=== PATIENT | female | born 1930 | race Caucasian/White ===

== ENCOUNTER 2017-02-18 20:51 | Inpatient (IN) | payer OTHER ==
[2017-02-18] MEDS ORDERED: NS 1,000 ML IV ONE (21:11)
[2017-02-18 21:21] LABS: % IMMATURE GRANULYOCYTES 0.8 % (0.0-1.1); ABSOLUTE IMMATURE GRANULOCYTES 0.21 10^3/uL (0.00-0.10); ADD DIFF? NO; ADD MORPH? NO; ADD SCAN? NO; ATYPICAL LYMPHOCYTE FLAG 0 (0-99); FRAGMENT RBC FLAG 0 (0-99); HEMATOCRIT 41.7 % (38.0-47.0); HEMOGLOBIN 13.8 g/dL (12.6-16.3); LEFT SHIFT FLG 70 (0-99); LIPEMIA HEMOLYSIS FLAG 80 (0-99); MEAN CELL HEMOGLOBIN 26.9 pg (27.9-34.1); MEAN CELL HEMOGLOBIN CONCENTR. 33.1 g/dL (32.4-36.7); MEAN CELL VOLUME 81.3 fL (81.5-99.8); MEAN PLATELET VOLUME 11.8 fL (8.7-11.7); PLATELET CLUMPS FLAG 10 (0-99); PLATELET COUNT 251 10^3/uL (150-400); RED BLOOD CELL COUNT 5.13 10^6/uL (4.18-5.33); RED CELL DISTRIBUTION WIDTH 15.4 % (11.5-15.2)
[2017-02-18 21:40] LABS: ANION GAP 12 mEq/L (8-16); CALCIUM 10.3 mg/dL (8.5-10.4); CARBON DIOXIDE 25 mEq/l (22-31); CHLORIDE 98 mEq/L (97-110); CREATININE 0.8 mg/dL (0.6-1.0); GLOMERULAR FILTRATION RATE > 60; GLUCOSE 136 mg/dL (70-100); POTASSIUM 3.9 mEq/L (3.5-5.2); SODIUM 135 mEq/L (134-144)
[2017-02-18 22:02] LABS: COLOR YELLOW; LEUKOCYTE ESTERASE,URINE NEGATIVE (NEGATIVE); NITRITE,URINE NEGATIVE (NEGATIVE)
--- NOTE | 2017-02-18 22:05 | EDPHY ---
H & P Stated Complaint: AMS Time Seen by Provider: 02/18/17 21:14 HPI/ROS: CHIEF COMPLAINT: Fever and confusion HISTORY OF PRESENT ILLNESS: The patient is brought to the ED by paramedics with a reported history of fever in confusion. By report the patient was last seen in her normal state of health approximately 2 days ago. The patient is noted to have a low-grade fever. In the emergency department, the patient is unable to provide much history. By report she lives independently perhaps at [facility]. 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 She did not show up at work today which prompted a welfare check. In the ED the patient is arousable, she is able to state her name. She is unable to provide much history. REVIEW OF SYSTEMS: A comprehensive 10 point review of systems is unobtainable secondary to altered mental status Source: Patient Exam Limitations: Clinical condition - Medical/Surgical History PMH: Past medical history: Depression, asthma, obesity, PMR, glaucoma Medications: Prednisone, Qvar, venlafaxine, prednisolone, Ventolin Other PMH: unable to get - Social History Smoking Status: Unknown if ever smoked - Physical Exam Exam: General Appearance: Alert, confused, no acute distress, obese Eyes: Pupils equal and round no pallor or injection ENT, Mouth: Dry mucous membranes Respiratory: There are no retractions, lungs are clear to auscultation Cardiovascular: Regular rate and rhythm Gastrointestinal: Abdomen is soft and nontender, no masses, bowel sounds normal Neurological: Alert and oriented x1-name only, withdrawals to pain all 4 extremities, patient unable to sit up in bed on her own secondary to global weakness, no cranial nerve 7 palsy, no tongue deviation, sensation intact to light touch throughout face, unable to assess EOMI visual [place] Skin: Warm and dry, no rashes Musculoskeletal: Neck is supple nontender Extremities: symmetrical, full range of motion Constitutional: Initial Vital Signs Temperature (C) 37.9 C 02/18/17 21:15 Heart Rate 109 H 02/18/17 21:15 Respiratory Rate 24 H 02/18/17 21:15 Blood Pressure 176/76 H 02/18/17 21:15 O2 Sat (%) 95 02/18/17 21:15 O2 Delivery Mode Nasal Cannula O2 (L/minute) 2 Allergies/Adverse Reactions: Unable to Assess Allergy (Unverified 02/18/17 22:43) Home Medications: Medication Instructions Recorded Albuterol 02/18/17 Bisacodyl 02/18/17 Prednisolone 02/18/17 Venlafaxine HCl 02/18/17 Medical Decision Making - Diagnostics Imaging Results: Imaging Impressions Chest X-Ray 02/18/17 21:11 Impression: 1. Poor inspiration. 2. Mild peribronchial cuffing in the perihilar region. Findings are nonspecific but can be seen with bronchitis, viral process, or reactive airways disease. ED Course/Re-evaluation: The patient presents to the ED with altered mental status. The patient appears to be globally weak and confused. She is noted to have a low-grade fever. Patient has no hypoxemia. Her chest x-ray demonstrates no evidence of a pneumonia. The patient's urinalysis demonstrates no evidence of infection. The patient is noted to have an elevated white blood cell count. The patient was taken for noncontrast head CT scan in the setting of her altered mental status. I obtained old records from [facility] which demonstrate no significant comorbidities. The patient did have blood cultures x2 obtained. Patient will require admission to the hospital in a setting of her altered mental status. I do not feel the patient is safe to be transferred to [facility]. Consultation is made with Dr. Dior from the hospitalist service. The patient is unable to tolerate lumbar puncture secondary to her confusion and her body habitus makes it very difficult. I am unable to tolerate clear landmarks. The patient will be treated for bacterial meningitis and HSV encephalitis with ceftriaxone and vancomycin in addition to 10 milligrams/ kilogram of IV acyclovir. I estimate her body weight to be approximately 75 kg. The patient will be admitted to the intensive care unit for further evaluation this evening. Hopefully the patient can tolerate lumbar puncture under fluoroscopic guidance in the morning. Differential Diagnosis: Differential diagnosis considered includes urinary tract infection, pneumonia, viral syndrome, intracranial hemorrhage, stroke, , seizure, overdose Critical Care Time: Critical care time exclusive of procedures and exclusive of the PA's time was 45 minutes, performed by myself, Garry Moore MD. Patient presents to the ED with acute altered mental status. The patient will require admission to the hospital intensive care unit and treatment for possible encephalitis/meningitis. - Data Points Laboratory Results: Laboratory Results 02/18/17 21:00 02/18/17 21:00 02/18/17 02/18/17 02/18/17 21:50 21:10 21:00 WBC RBC Hgb Hct MCV MCH MCHC RDW Plt Count MPV Neut % (Auto) Lymph % (Auto) [place] % (Auto) Eos % (Auto) Baso % (Auto) Nucleat RBC Rel Count Absolute Neuts (auto) Absolute Lymphs (auto) Absolute Monos (auto) Absolute Eos (auto) Absolute Basos (auto) Absolute Nucleated RBC Immature Gran % Immature Gran # VBG Lactic Acid 1.3 mmol/L mmol/L (0.7-2.1) Sodium 135 mEq/L mEq/L (134-144) Potassium 3.9 mEq/L mEq/L (3.5-5.2) Chloride 98 mEq/L mEq/L (97-110) Carbon Dioxide 25 mEq/l mEq/l (22-31) Anion Gap 12 mEq/L mEq/L (8-16) BUN 22 mg/dL mg/dL (7-23) Creatinine 0.8 mg/dL mg/dL (0.6-1.0) Estimated GFR > 60 Glucose 136 mg/dL H mg/dL (70-100) Calcium 10.3 mg/dL mg/dL (8.5-10.4) Urine Color YELLOW Urine Appearance CLEAR Urine pH 6.0 (5.0-7.5) Ur Specific [place] 1.013 (1.002-1.030) Urine Protein 1+ H (NEGATIVE) Urine Ketones NEGATIVE (NEGATIVE) Urine Blood 1+ H (NEGATIVE) Urine Nitrate NEGATIVE (NEGATIVE) Urine Bilirubin NEGATIVE (NEGATIVE) Urine Urobilinogen NEGATIVE EU EU (0.2-1.0) Ur Leukocyte Esterase NEGATIVE (NEGATIVE) Urine RBC 3-5 /hpf H /hpf (0-3) Urine WBC 1-3 /hpf /hpf (0-3) Ur Epithelial Cells TRACE /lpf /lpf (NONE-1+) Urine Mucus TRACE /lpf /lpf (NONE-1+) Urine Glucose NEGATIVE (NEGATIVE) 02/18/17 21:00 WBC 25.23 10^3/uL H 10^3/uL (3.80-9.50) RBC 5.13 10^6/uL 10^6/uL (4.18-5.33) Hgb 13.8 g/dL g/dL (12.6-16.3) Hct 41.7 % % (38.0-47.0) MCV 81.3 fL L fL (81.5-99.8) MCH 26.9 pg L pg (27.9-34.1) MCHC 33.1 g/dL g/dL (32.4-36.7) RDW 15.4 % H % (11.5-15.2) Plt Count 251 10^3/uL 10^3/uL (150-400) MPV 11.8 fL H fL (8.7-11.7) Neut % (Auto) 93.1 % H % (39.3-74.2) Lymph % (Auto) 3.2 % L % (15.0-45.0) [place] % (Auto) 2.4 % L % (4.5-13.0) Eos % (Auto) 0.0 % L % (0.6-7.6) Baso % (Auto) 0.5 % % (0.3-1.7) Nucleat RBC Rel Count 0.0 % % (0.0-0.2) Absolute Neuts (auto) 23.47 10^3/uL H 10^3/uL (1.70-6.50) Absolute Lymphs (auto) 0.80 10^3/uL L 10^3/uL (1.00-3.00) Absolute Monos (auto) 0.61 10^3/uL 10^3/uL (0.30-0.80) Absolute Eos (auto) 0.01 10^3/uL L 10^3/uL (0.03-0.40) Absolute Basos (auto) 0.13 10^3/uL H 10^3/uL (0.02-0.10) Absolute Nucleated RBC 0.00 10^3/uL 10^3/uL (0-0.01) Immature Gran % 0.8 % % (0.0-1.1) Immature Gran # 0.21 10^3/uL H 10^3/uL (0.00-0.10) VBG Lactic Acid Sodium Potassium Chloride Carbon Dioxide Anion Gap BUN Creatinine Estimated GFR Glucose Calcium Urine Color Urine Appearance Urine pH Ur Specific [place] Urine Protein Urine Ketones Urine Blood Urine Nitrate Urine Bilirubin Urine Urobilinogen Ur Leukocyte Esterase Urine RBC Urine WBC Ur Epithelial Cells Urine Mucus Urine Glucose Medications Given: Discontinued Medications Sodium Chloride (Ns) 1,000 mls @ 0 mls/hr IV ONCE ONE PRN Reason: Wide Open Stop: 02/18/17 21:12 Last Admin: 02/18/17 21:23 Dose: 1,000 mls Departure - Departure Disposition: [facility] Inpatient Acute Clinical Impression: Encephalopathy acute Condition: Critical
[2017-02-18 22:06] LABS: MUCUS TRACE /lpf (NONE-1+)
[2017-02-18] MEDS ORDERED: ACETAMINOPHEN 120 MG SUPP PR ONE (22:50)
[2017-02-18] MEDS ORDERED: cefTRIAXone 2 GM in D5W 50 ML IV ONE (22:55)
[2017-02-18] MEDS ORDERED: VANCOMYCIN HCL/NORMAL SALINE 250 ML IV ONE (22:55)
[2017-02-18] MEDS ORDERED: ACYCLOVIR 750 MG in D5W 250 ML IV ONE (22:59)
[2017-02-18] MEDS ORDERED: ACETAMINOPHEN 650 MG SUPP PR ONE (23:02)
[2017-02-18] MEDS ORDERED: ONDANSETRON DISINTEGRATING 4 MG TAB PO PRN (23:11)
[2017-02-18] MEDS ORDERED: ONDANSETRON 4 MG/2 ML VIAL IVP PRN (23:11)
[2017-02-18] MEDS ORDERED: ACETAMINOPHEN 325 MG TAB PO PRN (23:11)
[2017-02-18 23:35] LABS: ALBUMIN 3.7 g/dL (3.5-5.0); BILIRUBIN,TOTAL 1.1 mg/dL (0.1-1.4); BILIRUBIN-CONJUGATED 0.5 mg/dL (0.0-0.5); BILIRUBIN-UNCONJUGATED 0.6 mg/dL (0.0-1.1); TOTAL PROTEIN 7.1 g/dL (6.3-8.2)
--- NOTE | 2017-02-18 23:56 | PDGENHP ---
History and Physical - Chief Complaint altered mental status - History of Present Illness Patient is an 87 year old female with polymyalgia rheumatica, mild asthma, GERD , obesity who live in independent living at [facility] was brought to the ED by EMS after being found confused/altered at home. History is limited by patient status, obtained from ED staff and medical record. 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 Given this, a wellness check was sent to her apartment, where she was found confused, so EMS was called and she was transported to the ED. Per report , she was last seen well about 2 days ago. On arrival to the ED, patient was febrile to Tmax 39.2C, tachycardic, mildly hypertensive, in no respiratory distress. She was oriented to person and nonfocal in all of her movements, but was unable to provide a history. Labs revealed leukocytosis (wbc 25k), normal lactic acid (1.2), normal BMP and negative UA. CXR also did not show obvious source of infection. CT head showed age appropriate atrophy, no acute abnormalities. LP could not be performed in the ED due to patient body habitus and altered mental status. She was pancultured and initiated on empiric broad spectrum antibiotics with meningeal coverage. History Information - Allergies/Home Medication List Allergies/Adverse Reactions: Unable to Assess Allergy (Unverified 02/18/17 22:43) Home Medications: Albuterol 02/18/17 [Last Taken Unknown] Bisacodyl 02/18/17 [Last Taken Unknown] Prednisolone 02/18/17 [Last Taken Unknown] Venlafaxine HCl 02/18/17 [Last Taken Unknown] I have personally reviewed and updated: family history, medical history, social history, surgical history - Past Medical History Additional medical history: polymyalgia rheumatica, on daily prednisone. mild persistent asthma. morbid obesity. glaucoma. depression - Surgical History Additional surgical history: corneal surgery. hysterectomy - Family History Positive for: non-pertinent - Social History Smoking Status: Former smoker (40 pack-year history) Alcohol Use: Other (unknown) Drug Use: None Additional social history: Lives alone in independent living facility Review of Systems ROS: 10pt was reviewed & negative except for what was stated in HPI & below Physical Exam Temp Pulse Resp BP Pulse Ox 39.2 C H 120 H 20 173/75 H 93 02/18/17 22:45 02/18/17 22:45 02/18/17 22:45 02/18/17 22:45 02/18/17 22:45 Constitutional: appears nourished, not in pain, obese Eyes: PERRL, anicteric sclera, EOMI Ears, Nose, Mouth, Throat: moist mucous membranes, hearing normal, no oral mucosal ulcers Cardiovascular: regular rate and rhythym, no murmur, rub, or gallop, pulses symmetric bilaterally, tachycardia, No JVD, No edema Peripheral Pulses: 2+: dorsalis-pedis (R), dorsalis-pedis (L) Respiratory: no respiratory distress, no rales or rhonchi, clear to auscultation Gastrointestinal: normoactive bowel sounds, soft, non-tender abdomen, no palpable masses, No guarding, No rebound, No distension Genitourinary: no bladder fullness, no bladder tenderness Skin: mottled, no rashes or abrasions, no fluctuance, no induration Musculoskeletal: full muscle strength, no muscle tenderness, normal joint ROM, no joint effusions Neurologic: other (oriented to person only, able to follow simple commands; cn II-XII grossly intact; strength of all extremities intact and eqaul) Psychiatric: encephalopathic Lab Data & Imaging Review 02/19/17 05:10 02/19/17 05:10 WBC 25.23 10^3/uL (3.80-9.50) H 02/18/17 21:00 RBC 5.13 10^6/uL (4.18-5.33) 02/18/17 21:00 Hgb 13.8 g/dL (12.6-16.3) 02/18/17 21:00 Hct 41.7 % (38.0-47.0) 02/18/17 21:00 MCV 81.3 fL (81.5-99.8) L 02/18/17 21:00 MCH 26.9 pg (27.9-34.1) L 02/18/17 21:00 MCHC 33.1 g/dL (32.4-36.7) 02/18/17 21:00 RDW 15.4 % (11.5-15.2) H 02/18/17 21:00 Plt Count 251 10^3/uL (150-400) 02/18/17 21:00 MPV 11.8 fL (8.7-11.7) H 02/18/17 21:00 Neut % (Auto) 93.1 % (39.3-74.2) H 02/18/17 21:00 Lymph % (Auto) 3.2 % (15.0-45.0) L 02/18/17 21:00 [place] % (Auto) 2.4 % (4.5-13.0) L 02/18/17 21:00 Eos % (Auto) 0.0 % (0.6-7.6) L 02/18/17 21:00 Baso % (Auto) 0.5 % (0.3-1.7) 02/18/17 21:00 Nucleat RBC Rel Count 0.0 % (0.0-0.2) 02/18/17 21:00 Absolute Neuts (auto) 23.47 10^3/uL (1.70-6.50) H 02/18/17 21:00 Absolute Lymphs (auto) 0.80 10^3/uL (1.00-3.00) L 02/18/17 21:00 Absolute Monos (auto) 0.61 10^3/uL (0.30-0.80) 02/18/17 21:00 Absolute Eos (auto) 0.01 10^3/uL (0.03-0.40) L 02/18/17 21:00 Absolute Basos (auto) 0.13 10^3/uL (0.02-0.10) H 02/18/17 21:00 Absolute Nucleated RBC 0.00 10^3/uL (0-0.01) 02/18/17 21:00 Immature Gran % 0.8 % (0.0-1.1) 02/18/17 21:00 Immature Gran # 0.21 10^3/uL (0.00-0.10) H 02/18/17 21:00 VBG Lactic Acid 1.3 mmol/L (0.7-2.1) 02/18/17 21:10 Sodium 135 mEq/L (134-144) 02/18/17 21:00 Potassium 3.9 mEq/L (3.5-5.2) 02/18/17 21:00 Chloride 98 mEq/L (97-110) 02/18/17 21:00 Carbon Dioxide 25 mEq/l (22-31) 02/18/17 21:00 Anion Gap 12 mEq/L (8-16) 02/18/17 21:00 BUN 22 mg/dL (7-23) 02/18/17 21:00 Creatinine 0.8 mg/dL (0.6-1.0) 02/18/17 21:00 Estimated GFR > 60 02/18/17 21:00 Glucose 136 mg/dL (70-100) H 02/18/17 21:00 Calcium 10.3 mg/dL (8.5-10.4) 02/18/17 21:00 Total Bilirubin 1.1 mg/dL (0.1-1.4) 02/18/17 21:00 Conjugated Bilirubin 0.5 mg/dL (0.0-0.5) 02/18/17 21:00 Unconjugated Bilirubin 0.6 mg/dL (0.0-1.1) 02/18/17 21:00 AST 24 IU/L (14-46) 02/18/17 21:00 ALT 26 IU/L (9-52) 02/18/17 21:00 Alkaline Phosphatase 91 IU/L (38-126) 02/18/17 21:00 Total Protein 7.1 g/dL (6.3-8.2) 02/18/17 21:00 Albumin 3.7 g/dL (3.5-5.0) 02/18/17 21:00 Lipase 46.0 IU/L (23-300) 02/18/17 21:00 Urine Color YELLOW 02/18/17 21:50 Urine Appearance CLEAR 02/18/17 21:50 Urine pH 6.0 (5.0-7.5) 02/18/17 21:50 Ur Specific [place] 1.013 (1.002-1.030) 02/18/17 21:50 Urine Protein 1+ (NEGATIVE) H 02/18/17 21:50 Urine Ketones NEGATIVE (NEGATIVE) 02/18/17 21:50 Urine Blood 1+ (NEGATIVE) H 02/18/17 21:50 Urine Nitrate NEGATIVE (NEGATIVE) 02/18/17 21:50 Urine Bilirubin NEGATIVE (NEGATIVE) 02/18/17 21:50 Urine Urobilinogen NEGATIVE EU (0.2-1.0) 02/18/17 21:50 Ur Leukocyte Esterase NEGATIVE (NEGATIVE) 02/18/17 21:50 Urine RBC 3-5 /hpf (0-3) H 02/18/17 21:50 Urine WBC 1-3 /hpf (0-3) 02/18/17 21:50 Ur Epithelial Cells TRACE /lpf (NONE-1+) 02/18/17 21:50 Urine Mucus TRACE /lpf (NONE-1+) 02/18/17 21:50 Urine Glucose NEGATIVE (NEGATIVE) 02/18/17 21:50 Visualized and Interpreted Chest x-ray results: Yes Chest X-Ray results: no infiltrate Visualized and Interpreted imaging results: Yes Interpretation: CT head: age appropriate atrophy; no acute edema, hemorrhage or infarct seen Assessment & Plan Assessment: Patient is an 87 year old female with PMR on chronic steroids, depression, asthma, obesity who was brought to the ED with acute encephalopathy. ED work up is concerning for severe sepsis, however, source of infection is yet to be identified. Plan: # acute encephalopathy Patient is nonfocal in her symptoms, is oriented to person and able to follow some simple commands. However, is encephalopathic, which appears consistent with a metabolic encephalopathy. Given fever, leukocytosis and tachycardia, and normal electrolytes, suspect an infection etiology, although source is not obvious at this time. Will continue to monitor neuro status, if no improvement in encephalopathy with antibiotics or if patient develops focal findings, will check MRI and obtain neuro consult. # suspected sepsis As mentioned above, patient is febrile, tachycardic and with a significant leukocytosis, concerning for severe sepsis given her altered mental status, however, no clear source of infection is identified. No obvious rash or skin breakdown, abdomen is soft/nontender and CXR, rapid Flu swab, urinalysis and LFTs are all within normal limits. Given fever and altered mental status, acute encephalitis is also a possibility. She has been galvan-cultured and initiated on empiric broad spectrum antibiotics and anti-viral coverage in the ED. Will consult IR for lumbar puncture assistance, consult ID and follow up cultures. - f/u blood, urine cultures, - f/u Lumbar puncture - cont Vancomycin, ceftriaxone and acyclovir empirically - cont IVF hydration with NS @ 125 cc/hr given IV acyclovir # polymyalgia rheumatica Per her living facility documentation, patient has history of PMR, on chronic low dose prednisone daily. BP is stable, she does not appear to be adrenally suppressed at this time, however, if hemodynamics change, will initiate stress dose steroids. Will confirm and continue other home meds as well. # asthma No wheezing on exam, patient not tachypneic or hypoxic on presentation. Will provide nebs and supplemental O2 prn. #glaucoma Cont home meds/drops # dispo: admit to inpatient service for > 2 MN stay as patient requires further investigation of acute encephalopathy # gen: NPO given mental status DVT ppx: lovenox Full code
--- NOTE | 2017-02-19 00:35 | CPEKG ---
Heart Rate: 121 RR Interval: 496 QRSD Interval: 80 QT Interval: 312 QTC Interval: 443 QRS Schuyler: -4 T Wave Schuyler: 100 EKG Severity - ABNORMAL ECG - EKG Impression: Sinus rhythm with PAC EKG Impression: NONSPECIFIC REPOL ABNORMALITY, DIFFUSE LEADS Electronically Signed By: Israel Wallace 20-Feb-2017 11:55:46
[2017-02-19] MEDS: NS 1,000 ML IV SCH ×2 (01:24→20:54)
[2017-02-19 05:40] LABS: % IMMATURE GRANULYOCYTES 0.9 % (0.0-1.1); ABSOLUTE IMMATURE GRANULOCYTES 0.16 10^3/uL (0.00-0.10); ADD DIFF? NO; ADD MORPH? NO; ADD SCAN? NO; ATYPICAL LYMPHOCYTE FLAG 0 (0-99); FRAGMENT RBC FLAG 0 (0-99); HEMATOCRIT 38.9 % (38.0-47.0); HEMOGLOBIN 12.7 g/dL (12.6-16.3); LEFT SHIFT FLG 30 (0-99); LIPEMIA HEMOLYSIS FLAG 80 (0-99); MEAN CELL HEMOGLOBIN CONCENTR. 32.6 g/dL (32.4-36.7); MEAN CELL VOLUME 82.8 fL (81.5-99.8); PLATELET CLUMPS FLAG 0 (0-99); PLATELET COUNT 204 10^3/uL (150-400); RED CELL DISTRIBUTION WIDTH 15.3 % (11.5-15.2)
[2017-02-19 05:48] LABS: INR 1.47 (0.83-1.16); PROTIME(PATIENT) 17.8 SEC (12.0-15.0)
[2017-02-19 05:49] LABS: APTT 30.4 SEC (23.0-38.0)
[2017-02-19 05:57] LABS: ALANINE AMINOTRANSFERASE 30 IU/L (9-52); ALBUMIN 3.5 g/dL (3.5-5.0); ALKALINE PHOSPHATASE 88 IU/L (38-126); ANION GAP 11 mEq/L (8-16); ASPARTATE AMINOTRANSFERASE 23 IU/L (14-46); BILIRUBIN,TOTAL 0.8 mg/dL (0.1-1.4); CALCIUM 9.5 mg/dL (8.5-10.4); CARBON DIOXIDE 23 mEq/l (22-31); CHLORIDE 103 mEq/L (97-110); CREATININE 0.7 mg/dL (0.6-1.0); GLOMERULAR FILTRATION RATE > 60; GLUCOSE 130 mg/dL (70-100); MAGNESIUM 1.5 mg/dL (1.6-2.3); POTASSIUM 3.5 mEq/L (3.5-5.2); SODIUM 137 mEq/L (134-144); TOTAL PROTEIN 6.5 g/dL (6.3-8.2)
[2017-02-19] MEDS ORDERED: ACYCLOVIR 750 MG in D5W 250 ML IV SCH (06:00)
[2017-02-19] MEDS ORDERED: PROTOCOL MAGNESIUM 1 DOSE IV PRN (06:55)
[2017-02-19] MEDS ORDERED: MAGNESIUM SULF 1 GM/DEXTROSE 100 ML IV ONE (07:37)
[2017-02-19] MEDS: ENOXAPARIN 40 MG/0.4 ML SYR SC SCH (08:07)
[2017-02-19] MEDS ORDERED: cefTRIAXone 2 GM in D5W 50 ML IV SCH (09:00)
[2017-02-19] MEDS: VANCOMYCIN 1.25 GM in D5W 250 ML IV SCH ×2 (11:21→22:38)
[2017-02-19] MEDS ORDERED: IOPAMIDOL (ISOVUE-300) 100 ML BTL IV ONE (11:24)
--- NOTE | 2017-02-19 13:40 | GCON ---
[f rep st] CONSULTATION INFECTIOUS DISEASE CONSULTATION DATE OF CONSULTATION: 02/19/2017 REFERRING PHYSICIAN: Мария Dior MD REASON FOR CONSULTATION: Altered mental status. CHIEF COMPLAINT: Fevers and shaking chills. HISTORY OF PRESENTING ILLNESS: This is an 87-year-old female with a past medical history significant for polymyalgia rheumatica, obesity, NAVNEET on CPAP, depression on Effexor, asthma, who tells me she lives independently at the [facility]. She states that she was having fevers and shaking chills over the weekend and was feeling extremely tired and slept most of the weekend. Because of that, she missed showing up to some scheduled appointments that she had that day. Apparently people had come in to check in on her and because she was confused they had her sent to the ER. She states that she occasionally gets these types of symptoms where she gets fevers and shaking chills and extreme exhaustion. Upon review of medical records via [employer], she apparently was admitted to [facility] in November of this year with similar symptoms of fevers, chills, weakness, tiredness. She had a slight leukocytosis at that time. She was felt to have a viral syndrome. Other than that, she states that she has had some issues with diarrhea recently and some left lower abdominal pain. She states that she had a colonoscopy recently and has had some polyps present. She cannot give me other details about some type of workup but it looks to me that she had a CAT scan. She denies feeling more short of breath or having excessive productive cough. She denies sinus pressure, denies headaches or neck stiffness or neck pain. She can tell me her name, her date of , what year it is, the president, where she lives and what she normally does during her daily routines. She denies any vomiting or nausea. She denies any burning with urination. She denies joint pains as such. She did fall recently and did sustain a bruise on her right lower extremity which gives her some mild discomfort. She denies back pain. Upon arrival, her initial temperature here was 37.9 but she did spike to 39.2. Her blood pressure was 176/76. Her respiratory rate was elevated at 24, and her heart rate has been elevated throughout. She was found to have a leukocytosis of 25,000 with a left shift. Her venous lactic acid was 1.3. Normal TSH, renal function and liver function tests. Her urinalysis was unremarkable, only 1-3 white blood cells. She did have some blood in the urine. Negative workup for flu. Blood cultures x2 sets were done, and they are pending. She had a chest x- ray, which showed some mild peribronchial thickening. Head CT, which showed age- related atrophy with no hemorrhage, mass effect, or infarct. She was started empirically on ceftriaxone, vancomycin, and acyclovir. An LP could not be done in the ER, and therefore she was broadly covered for possible meningitis, encephalitis. Infectious Disease is now consulted for further evaluation and opinion. She is much more oriented this morning. She is continuing to have some word- finding difficulties. She denies headache, denies neck stiffness or pain. REVIEW OF SYSTEMS: GENERAL: Fevers and shaking chills past couple of days. HEAD : No headaches. EYES: Does not complain of any change in vision. ENT: Denies any sore throat, difficulty swallowing, ear pain, ear drainage, sinus pressure. Occasional nasal discharge. CARDIOVASCULAR: Denies chest pain but is complaining of some palpitations at present. RESPIRATORY: A mild chronic cough. No increased shortness of breath or sputum production. ABDOMEN: No nausea or vomiting. She does complain of intermittent diarrhea and is having some left lower quadrant discomfort. : Denies any dysuria, hematuria. BACK: No back pain. JOINTS: No increased joint pains. SKIN: Denies any rashes or wounds but does have a moderate sized bruise on her right lower extremity which is mildly discomforting to her. Rest of 10-point review of systems essentially negative except for above. PAST MEDICAL HISTORY: Significant for polymyalgia rheumatica diagnosed 1-2 years ago. She is on chronic prednisone. Follows with a wood die maker. There was some question of whether or not this is a true diagnosis or not for her but in the very least, she is still on prednisone for this. Asthma, GERD, obesity, NAVNEET on CPAP, depression, hypertension, endometrial cancer. PAST SURGICAL HISTORY: Significant for bilateral corneal transplants, bilateral cataract surgery, total abdominal hysterectomy with bilateral salpingo -oophorectomy, tonsillectomy and adenoidectomy, bunionectomy, keratoplasty. ALLERGIES: No known drug allergies. SOCIAL HISTORY: She lives independently. She is a nonsmoker. She does not drink alcohol regularly. She has had no contact with young children. She has not left [place] recently. 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 FAMILY HISTORY: Significant for hypertension. MEDICATIONS: As per MAR. PHYSICAL EXAMINATION: VITAL SIGNS: Temperature current 37.7, pulse is 105, appears irregular. Blood pressure 110/64, respiratory rate 25, saturation 96% on room air. On 2 L O2 via nasal cannula. GENERAL: She is in the intensive care unit awake, alert, and fairly well oriented. She does have some word-finding difficulties. NEURO: Cranial nerves 2-12 grossly intact. Motor strength is pretty intact as well, 5/5. No sensory loss appreciated. Other than the word- finding difficulties, no other focal deficits appreciated. HEENT: Head is normocephalic and atraumatic. Eyes: She has some cataract changes on the left particularly. No conjunctival injection. No petechiae noted. Oropharynx is without oral ulcers or thrush. Dry mucous membranes appreciated. Lips are peeling. No pressure over the sinuses. No pressure or pain over the temporal artery bilaterally. NECK: Supple. No meningismus appreciated. CARDIOVASCULAR: S1 , S2. Irregular rate and rhythm with a murmur appreciated. RESPIRATORY: Clear to auscultation bilaterally. No rhonchi or rales appreciated. ABDOMEN: Positive bowel sounds in all 4 quadrants. Soft, obese. She has tenderness on the left lower quadrant. She has some mild rebound appreciated. EXTREMITIES: No obvious joint effusions appreciated. SKIN: Venostasis changes bilaterally. She has a bruise particularly on the right upper leg without much tenderness. There is no evidence of cellulitis. BACK: Nontender to palpate. LABS: White blood cell count is 18.6, hemoglobin 12.7, platelets are 204, neutrophil count is 92. INR 1.4. Venous lactic acid is down to 1.1. Sodium 137, potassium 3.5, chloride 103, bicarb 23, BUN is 16, creatinine 0.7, glucose 130. Magnesium 1.5. Phosphorus 2.6. Calcium 9.5. LFTs are within the normal range. TSH 0.7. Urinalysis: 1+ protein, 1+ blood, negative nitrites, negative leukocyte esterase with rbc's 3-5, urine wbc's 1-3. Influenza A and B PCR negative. Blood cultures x2 sets are pending. Urine culture pending. Imaging results have all been reviewed by me and are stated above. ASSESSMENT: Systemic inflammatory response syndrome of unclear etiology associated with fevers, altered mental status, leukocytosis. PLAN: She appears mostly oriented at present but does continue to have intermittent word-finding difficulties. She does also have an irregular rate and rhythm with a murmur appreciated. Cultures have been collected and those are pending. She has no meningismus, neck is supple and does not clinically appear consistent with meningitis or encephalitis at this point in time. Even though she was given a dose of acyclovir would not expect such a rapid recovery after 1 or 2 doses. Would recommend an MRI of the brain with gado to further evaluate for possible stroke along with a 2D echo for possible vegetation. Would also consider a CT of the abdomen and pelvis given recent history of diarrhea and left lower quadrant pain to further evaluate potential source for infection. We will adjust her antimicrobial therapy in the meantime. Will discontinue acyclovir. I don't feel she needs a lumbar puncture. Will change ceftriaxone to zosyn for better intraabdominal coverage while cultures are pending and until Cat-scan resulted. Continue Vancomycin. Will adjust antibiotics accordingly based on additional information gleaned from the above studies. Care coordinated with her RN and thank you very much for the opportunity to care for your patient in consultation. /[id number]/MODL MTDD
[2017-02-19] MEDS ORDERED: GADOBUTROL 10 ML VIAL IVP ONE (14:25)
--- NOTE | 2017-02-19 14:38 | ECHO ---
[id number] + + [address] : : [place] [address] : : [phone] + + Adult Echocardiographic Report + + :Name: HESHAM SANDOVAL CStudy Date: 02/19/2017 10:20 AM BP: 110/84 m mHg : : Hospital Admission Number: [id number] tilucio: 253HR: 110: :: 1930 Gender: Female Height: 61 i n : :Age: 87 yrs Race: WH Weight: 208 lb : :Reason For Study: eval for vegetations : : BSA: 1.9 met ers2 : :History: bacteremic, IRR, murmur : + + MMode/2D Measurements \T\ Calculations IVSd: 1.3 cm RVDd: 2.6 cm FS: 44.0 % Ao root diam: LVPWd: 1.2 cm LVIDd: 4.6 cm EDV(Teich): 95.5 ml2.8 cm LVIDs: 2.6 cm ESV(Teich): 23.6 mlLA dimension: EF(Teich): 75.3 % 4.1 cm LVOT diam: 2.0 cmLVLd ap4: 7.8 cm SV(MOD-sp4): LVOT area: EDV(MOD-sp4): 87.0 ml 3.0 cm2 111.0 ml LVLs ap4: 6.3 cm ESV(MOD-sp4): 24.0 ml EF(MOD-sp4): 78.4 % Normal Measurement Values: + + :LVIDd (3.5-5.7cm) IVSd (0.6-1.1cm) LVPWd (0.6-1.1cm) Aortic Root (2.0-3.7cm)Left Atrium (1.5-4.0cm): :LV Vol(d) (76-115ml) LV Vol(s) (29-48ml) Ejec Fraction (50-65%)PV Timi (0.6- 1.2m/s) TV Timi (0.4-1.0m/s) : :MV E Timi (0.8-1.0m/s)MV A Timi (0.3-1.0m/s)LVOT Timi (0.7-1.2m/s) Asc Ao Timi ( 0.9-1.8m/s) : + + Doppler Measurements \T\ Calculations MV V2 mean: MV P1/2t max timi: Ao mean PG: AI max timi: 131.3 cm/sec 199.1 cm/sec 13.7 mmHg 361.7 cm/sec MV mean PG: MV P1/2t: 76.3 msec Ao V2 mean: AI max P.7 mmHg MVA(P1/2t): 2.9 cm2 175.1 cm/sec 52.7 mmHg MV V2 VTI: MV dec slope: Ao V2 VTI: AI dec slope: 48.6 cm 38.1 cm 333.0 cm/sec2 MVA(VTI): 1.4 cm2 764.5 cm/sec2 BERNARDINO(I,D): 1.7 cm2AI P1/2t: 318.2 msec LV V1 max: SV(LVOT): 65.7 ml PA V2 max: 121.4 cm/sec 124.9 cm/sec LV V1 max PG: PA max P.9 mmHg 6.2 mmHg LV V1 mean P.3 mmHg LV V1 mean: 84.9 cm/sec LV V1 VTI: 21.8 cm Left Ventricle The left ventricle is normal in size. There is mild to moderate concentric left ventricular hypertrophy. The left ventricle is hyperdynamic. Ejection Fraction = 75%. No regional wall motion abnormalities noted. Right Ventricle The right ventricle is normal in size and function. Atria The left atrium is mildly dilated. The Left Atrial Volume is 32 ml/m2. Right atrial size is normal. Mitral Valve Heavy mitral annular calcification with thickened leaflets. The posterior leaflet appears immobile. Possible mobile echo noted on the mitral valve leaflet in the apical two chmaber view; however it is difficult to determine if this is vegetation or reverberation from the annular calcification. A vegetation on the mitral valve cannot be excluded. There is mild to moderate mitral stenosis. Mean gradient across the valve 8mmHg. There is mild mitral regurgitation. Tricuspid Valve The tricuspid valve is not well visualized. There is no tricuspid stenosis. No tricuspid regurgitation. Aortic Valve The aortic valve is trileaflet. Aortic leaflets are mildly calcified making it difficult to rule out vegetation. Mild valvular aortic stenosis. 25/15 max/mean pressure gradients across the aortic valve. Mild aortic regurgitation. Pulmonic Valve The pulmonic valve is not well visualized. Great Vessels The aortic root is normal size. Pericardium/Pleural There is no pericardial effusion. Conclusion A two-dimensional transthoracic echocardiogram with M-mode and Doppler was performed. There is no evidence of a mass or vegetation. This does not rule out endocarditis. The left ventricle is hyperdynamic. Ejection Fraction = 75%. There is mild to moderate concentric left ventricular hypertrophy. The left atrium is mildly dilated. The Left Atrial Volume is 32 ml/m2. Heavy mitral annular calcification with thickened leaflets. The posterior leaflet appears immobile. There is mild to moderate mitral stenosis. Mean gradient across the valve 8mmHg. There is mild mitral regurgitation. A vegetation on the mitral valve cannot be excluded. Aortic leaflets are mildly calcified making it difficult to rule out vegetation. Mild valvular aortic stenosis. 25/15 max/mean pressure gradients across the aortic valve. Mild aortic regurgitation. No surgical indications are identified by this study. JONATHAN if clinically relevant Final Reading Physician: Shiela Marquez signed on 02/19/2017 02:37 PM Ordering Physician: Dimas Adan Performed By: Elizabeth Fernández
[2017-02-19] MEDS: PIPERACILLIN/TAZO 3.375 GM/DEX 50 ML IV SCH ×2 (15:46→18:24)
--- NOTE | 2017-02-19 16:28 | HOSPPROG ---
Hospitalist Progress Note Assessment/Plan: 87 yo F with PMH of PMR, RAD, GERD pw acute encephalopathy in the setting of presumed sepsis # acute encephalopathy: non focal neuro exam, head CT negative. All in all most c/w toxic metabolic encephalopathy related to infection and initial blood cultures now positive for gpcs. Improving overnight. Brain MRI ordered given ongoing word finding difficulty. LP ordered but difficult given body habitus and confusion and may not be required if MRI reassuring and sxs continue to improve # sepsis: with leukocytosis, tachycardia, tachypnea but no clear source of infection. Started initially on tx for presumed meningitis with vanc/ctx/ acyclovir. Cultures growing gpc's initially in 3/4 bottles with final s/s pending. ID involved, abx changed to vanc/zosyn. Abd ct and echo ordered. # bacteremia: GPC's in 3/4 bottles with final s/s pending, abx as above. Echo with abnormal mitral valve, cannot r/o vegetation. Abd ct pending. Will get repeat cultures in am, continue to monitor. Source unclear. # VHD: with preserved EF but mitral valve calcification and mild to moderate MS , cannot exclude vegetation as above. Consider JONATHAN pending culture data. # PMR: on chronic steroids prior to admission, has been npo and no signs of adrenal insufficiency , but will start IV steroids for now and resume her home dose when taking PO given acute infection and desire to avoid adrenal crisis # RAD: no e/o acute exacerbation, continue usual inhalers # Dispo: IP status, multiple high risk presenting issues, resides in [facility] independent living Patient new to my care. Old records reviewed and summarized as above. Care plan reviewed with Dr. Tovar and multidisciplinary care team on rounds. Subjective: no significant overnight events, patient more awake and alert, no new complaints Objective: Vital Signs Temp Pulse Resp BP Pulse Ox 37.4 C 106 H 21 H 141/61 H 98 02/19/17 16:00 02/19/17 16:00 02/19/17 16:00 02/19/17 16:00 02/19/17 16:00 Laboratory Results 02/19/17 05:10 02/19/17 05:10 02/18/17 02/19/17 02/20/17 05:59 05:59 05:59 Intake Total 2584 Output Total 475 Balance 2109 PT 17.8 SEC (12.0-15.0) H 02/19/17 05:10 INR 1.47 (0.83-1.16) H 02/19/17 05:10 awake alert anicteric op clear rrr systolic murmur slight ttp diffusely w/o rebound or guarding no cce warm dry well perfused oriented - Time Spent With Patient Time Spent with Patient: greater than 35 minutes Time Spent with Patient: Greater than 35 minutes spent on this patients care, greater than 50% of time spent counseling, educating, and coordinating care regarding the above mentioned plan. ICD10 Worksheet Patient Problems: Problems Problem Status Onset Encephalopathy acute Acute
[2017-02-19] MEDS ORDERED: ALBUTEROL 200 PUFFS/18 GM MDI IH PRN (16:31)
[2017-02-19] MEDS: BECLOMETHASONE QVAR 80 MDI IH SCH (21:03)
[2017-02-19] MEDS: methylPREDNISolone SOD SUCC 40 MG/ML VIAL IVP SCH (21:41)
[2017-02-19] MEDS: prednisoLONE ACET 1% 5 ML OPHT.BTL LEFTEYE SCH (21:41)
--- NOTE | 2017-02-20 00:17 | GCON ---
[f rep st] CONSULTATION CRITICAL CARE CONSULTATION REASON FOR CONSULTATION: Abnormal mental status, bacteremia. HISTORY: The patient is a pleasant and active 87-year-old. She was admitted yesterday with abnormal mental status. She was found to be confused by some friends, and was taken to the emergency room. She reported some fevers and shaking chills, and profound fatigue. She was nonfocal from a mental status standpoint, but was having some problems finding words, and was somewhat more short of breath. She was febrile after admission to over 39. She is mildly tachypneic and tachycardic. White blood cell count was significantly elevated at approximately 25,000, with a shift to the left. Blood cultures were done, and have come back positive for gram-positive cocci. CT scan of the head was unremarkable. Cardiac echo has been done, and shows some calcification of the mitral valve, and a vegetation on the mitral valve was felt to be possible. There is some mild calcification of the aortic valve, as well, with mild stenosis of both valves. Left ventricular ejection fraction was normal. She has been seen by Infectious Disease. She is being treated with vancomycin and Zosyn. She is also on steroids for polymyalgia rheumatica. PAST MEDICAL HISTORY: Remarkable for PMR, she is on chronic low-dose steroids, asthma, obstructive sleep apnea, for which she uses CPAP, gastroesophageal reflux disease, systemic hypertension, and endometrial cancer. 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 Tobacco and significant alcohol are negative. ALLERGIES: No known drug allergies. FAMILY HISTORY: Noncontributory. REVIEW OF SYSTEMS: A 10-point review of systems is negative, except as outlined above. PHYSICAL EXAMINATION: GENERAL: Reveals a pleasant woman who is lying comfortably in bed. She does appear to be fatigued. VITAL SIGNS: Blood pressure is 140/60, heart rate 105, with sinus rhythm on the monitor with ectopy. On 3 L, saturations are 98%. She has been afebrile since shortly after her admission, and her maximum temperature is 39. HEENT AND NECK: Unremarkable for lymphadenopathy or thyromegaly. There is no obvious jugular venous distention. Pupils appear equal. Mucous membranes are moist. There are no cranial nerve findings. CHEST: Clear, with breath sounds decreased at bases. HEART: Tachycardic. The rhythm is sinus, with some ectopy. A systolic murmur is present. No gallop is appreciated. P2 appears normal. ABDOMEN: Overweight, soft nontender. Bowel sounds present. EXTREMITIES: Remarkable for trace plus edema. NEUROLOGIC: Nonfocal. She moves all extremities equally. Sensation reportedly is intact. Cognition is within normal limits. She is oriented x3; however, occasionally, she has problems finding words. She will try to correct herself when this happens. LABORATORY DATA: Echo is as outlined above, with an abnormal calcified mitral valve and possible vegetation. Abdominal CAT scan shows some diverticulitis in the sigmoid colon. There is also a 2.5 mass in the left upper kidney suspicious for renal cell carcinoma. No other significant abnormalities were identified. The base of the lungs looked normal. CT scan of the head unremarkable for acute disease. Laboratory shows a white blood cell count of 18,000, down from 25,000 on admission, hematocrit is 39, platelets 204,000. There is a shift to the left. PT is 17.8, PTT 30. Lactates have been normal. Basic metabolic panel is normal , with the exception of the following: Potassium is 3.5, glucose 130, magnesium 1.5. Liver function studies are normal. TSH is normal. Urinalysis on admission was within normal limits. Influenza A/B by PCR were negative. ASSESSMENT: 1. Abnormal mental status. This is associated with fatigue, tiredness, and word-finding problems. There is no focality, and CT scan of the head was negative. A follow-up MRI of the brain is pending at this time. This likely, least in part, represents a toxic metabolic encephalopathy secondary to bacteremia/sepsis, but a small stroke remains possible. 2. Bacteremia/sepsis. She has gram-positive cocci in her blood. There is a questionable mitral valve lesion, thus this could be endocarditis. A JONATHAN is being considered. Also, abdominal CT scan shows evidence of sigmoid diverticulitis, with an inflamed diverticulum. A GI source is thus possible as well. She is on Gram-positive and Gram-negative coverage for both. Infectious Disease is following. 3. Left-sided renal mass. Query renal cell carcinoma. This can be addressed later in her hospital course or followed up as an outpatient. 4. History of underlying medical problems, including polymyalgia rheumatica, and chronic steroid treatment. She is being covered with stress doses of steroids. However, these can likely be decreased, as she is not hypotensive. PLAN: The patient will be kept in the intensive care unit. A JONATHAN will be performed. Cardiac consultation will be needed. Current antibiotics will be continued. MRI results of the awaited. Further plans and recommendations will be made based on her progress over the next 12-24 hours, and on the findings of additional studies. NAKUL
[2017-02-20] MEDS: PIPERACILLIN/TAZO 3.375 GM/DEX 50 ML IV SCH ×4 (00:20→17:46)
[2017-02-20] MEDS: methylPREDNISolone SOD SUCC 40 MG/ML VIAL IVP SCH ×2 (06:12→13:28)
[2017-02-20] MEDS: prednisoLONE ACET 1% 5 ML OPHT.BTL LEFTEYE SCH ×5 (06:12→21:04)
[2017-02-20 07:15] LABS: % IMMATURE GRANULYOCYTES 0.6 % (0.0-1.1); ABSOLUTE IMMATURE GRANULOCYTES 0.04 10^3/uL (0.00-0.10); ADD DIFF? NO; ADD MORPH? NO; ADD SCAN? YES; ATYPICAL LYMPHOCYTE FLAG 0 (0-99); FRAGMENT RBC FLAG 0 (0-99); HEMATOCRIT 40.9 % (38.0-47.0); HEMOGLOBIN 13.3 g/dL (12.6-16.3); LEFT SHIFT FLG 40 (0-99); LIPEMIA HEMOLYSIS FLAG 80 (0-99); MEAN CELL HEMOGLOBIN 26.8 pg (27.9-34.1); MEAN CELL HEMOGLOBIN CONCENTR. 32.5 g/dL (32.4-36.7); MEAN CELL VOLUME 82.3 fL (81.5-99.8); MEAN PLATELET VOLUME 12.3 fL (8.7-11.7); PLATELET CLUMPS FLAG 0 (0-99); PLATELET COUNT 186 10^3/uL (150-400); RED BLOOD CELL COUNT 4.97 10^6/uL (4.18-5.33); RED CELL DISTRIBUTION WIDTH 15.6 % (11.5-15.2)
[2017-02-20 07:24] LABS: ANION GAP 13 mEq/L (8-16); CALCIUM 9.8 mg/dL (8.5-10.4); CARBON DIOXIDE 24 mEq/l (22-31); CHLORIDE 104 mEq/L (97-110); CREATININE 0.7 mg/dL (0.6-1.0); GLOMERULAR FILTRATION RATE > 60; GLUCOSE 154 mg/dL (70-100); MAGNESIUM 2.1 mg/dL (1.6-2.3); POTASSIUM 3.5 mEq/L (3.5-5.2); SODIUM 141 mEq/L (134-144)
[2017-02-20 07:38] LABS: SCAN NEGATIVE
[2017-02-20] MEDS: BECLOMETHASONE QVAR 80 MDI IH SCH ×2 (10:00→20:42)
--- NOTE | 2017-02-20 12:03 | PCMIDPN ---
Assessment/Plan: Assessment/Plan: * Gram-positive bacteremia likely associated with diverticulitis and possible mitral valve endocarditis with EGG SEPARATOR emboli: Blood culture showing growth of gram -positive cocci in chains which were not identified by PCR; may represent microaerophilic streptococci with identification pending in microbiology lab. Given CT scan findings of diverticulitis, suspect this was initial source with concern for potential seeding of calcified mitral valve and subsequent EGG SEPARATOR emboli given MRI shows multifocal acute lacunar infarcts. Continue vancomycin and Zosyn pending further culture data. Plans for transesophageal echocardiogram today. Discussed with hospitalist service with plans for neurologic consultation based on above. Will assess vancomycin trough today. Time spent, greater than 35 minutes, of which half was spent in education/ counseling/coordination of care related to bacteremia, diverticulitis and possible endocarditis. Patient and medical power of family law attorney updated regarding above findings. 02/20/17 12:00 02/20/17 12:03 02/20/17 12:07 02/20/17 12:08 Subjective: Patient feels clinically improved with improved speech. Still some occasional word-finding difficulties and slurring. No abdominal pain. Objective: Vital Signs Temp Pulse Resp BP Pulse Ox 36.4 C 102 H 12 147/113 H 95 02/20/17 04:00 02/20/17 10:34 02/20/17 10:34 02/20/17 10:34 02/20/17 10:34 Laboratory Results 02/20/17 05:45 02/20/17 05:45 02/19/17 02/20/17 02/21/17 05:59 05:59 05:59 Intake Total 2584 3100 Output Total 475 650 Balance 2109 2450 Vancomycin # 2 Zosyn # 2 Blood cultures 2/2 sets gram-positive cocci in chains which could not be identified by PCR CT scan of abdomen and pelvis showing findings consistent with diverticulitis including inflamed 5 cm diverticulum; no evidence of abscess or perforation Transthoracic echocardiogram with heavily calcified mitral valve with possible mobile echodensity on thickened mitral valve MRI of brain showing 3 discrete acute lacunar infarcts involving the left posterior capsule, left thalamus, and left cerebral peduncle - Physical Exam General Appearance: alert, no apparent distress, non-toxic EENT: pharynx normal, No conjunctival petechiae Respiratory: lungs clear, No respiratory distress Cardiac/Chest: regular rate, rhythm, systolic murmur Extremities: No inflammation Abdomen: non-tender, No distended Skin: No embolic lesions Neuro/Psych: alert, other (Occasional slurred speech and difficulty with word finding) ICD10 Worksheet Patient Problems: Problems Problem Status Onset Encephalopathy acute Acute
[2017-02-20] MEDS: ENOXAPARIN 40 MG/0.4 ML SYR SC SCH (12:21)
[2017-02-20] MEDS: VENLAFAXINE XR 150 MG CAP PO SCH (12:21)
[2017-02-20 12:26] LABS: HEMOGLOBIN A1C 6.2 % (4.0-6.0)
[2017-02-20] MEDS: VANCOMYCIN 1.25 GM in D5W 250 ML IV SCH ×2 (13:30→22:18)
--- NOTE | 2017-02-20 15:00 | PDCONSULT ---
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 On emergency room evaluation, the patient was found to be septic with fever, leukocytosis and tachycardia. She was started on broad-spectrum antibiotics at that time. Her leukocytosis trended down in her mental status has improved to baseline. Her blood cultures have grown out Streptococcal species x2. CT of the abdomen did reveal inflammatory diverticulitis. She did have cardiac screening with a transthoracic echocardiogram which revealed heavily calcified mitral valve with possibility of a vegetation, though it could not be fully visualized. She had an MRI brain without contrast to investigate for her encephalopathy which revealed punctate areas of infarction in the left thalamus, left cerebral peduncle. Patient has improved dramatically since initiation of antibiotics. She feels back to her baseline with the exception of some mild weakness in the right leg that She noted this morning with physical therapy. Same goes for her right arm. She otherwise denies any sensory phenomenon, visual disturbance, speech/ language disturbance, vestibular symptoms, headache, neck stiffness, photophobia , back pain. ROS: As per the HPI, otherwise a complete 12 point ROS was performed and is negative ALLERGIES AND MEDS: As recorded in the EMR - reviewed and reconciled PFSH: As per the intake H&P by Dr. Dior from February 18, 2017 EXAM: VS reviewed in EMR GEN: WDWN sitting in NAD HEENT: NCAT, sclera anicteric, conjunctiva not injected, visible corneal transplant scars OU, MMM, oropharynx clear, no scalp tenderness NECK: supple, nontender, no meningismus CV: Tachycardiac, reg rhythm s1 s2 w grade 2 systolic murmur best at apex. Carotid pulses 2+ wo bruit NEURO: NIHSS 0 MS: awake, alert, oriented to all spheres. Speech nondysarthric. No language disturbance. Follows commands. Attends to both sides. Recent/remote memory grossly intact. Mood euthymic. Good fund of knowledge. CN: pupils 3mm round and reactive. Fundi with sharp discs. VFF. Primary gaze centered. Full ocular motility. Facial sensation preserved. Face symmetric. Hearing grossly intact to finger rub. Palatoglossal movements intact. Shoulder shrug and head turn strong. MOTOR: normal bulk/tone. No adventitial movements. Trace weakness in UMN pattern in RUE and RLE. No drift. SENSORY: symmetric and intact LT/PP. No extinction. COORD: no ataxia FN/HS. Chloe symmetrically a bit labored and bradykinetic. REFLEX: plantars equivocal. No clonus. DTRS absent. GAIT: deferred to PT DATA REVIEW: Labs reviewed in EMR PERSONALLY INTERPRETED RESULTS AND DATA: MRI brain wo reviewed as per the HPI IMPRESSION AND RECOMMENDATIONS: // ACUTE ISCHEMIC STROKE, SUSPECT EMBOLIC FROM MITRAL VALVE VEGETATION/ INFECTIVE ENDOCARDITIS // SEPSIS - IMPROVING // DIVERTICULITIS // ? MITRAL VALVE VEGETATION Patient with a few punctate areas of acute ischemia in the deep/basal ganglia region of the left hemisphere. She is manifesting some trace right-sided weakness. Her blood cultures are positive x 2 for Strep constellatus. ID noted reviewed and suspected that original source was from gut, that is, diverticulitis, resulting in bacteremia, which may have seeded her mitral valve. This could certainly have resulted in embolic stroke. At this point, recommend clarifying mitral valve abnormality with JONATHAN. Continue with treatment of sepsis per the primary team and consulting services. No antiplatelet/antithrombotic at this time given high suspicion for infective endocarditis (high risk of hemorrhagic conversion of lesions with these medications). 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 Stroke education. Goal normotension. If JONATHAN is unrevealing, may need to image posterior circulation in form of CTA head/neck.
--- NOTE | 2017-02-20 15:06 | PDINTPN ---
Ekg Monitor Tech Progress Note Assessment/Plan: Assessment: Gram-positive bacteremia. Id and sensitivity pending. Possibly from diverticulitis, possibly from mitral valve or both. Still of some concern regarding endocarditis. Clinically doing well. On antibiotics. Infectious Disease following. JONATHAN pending. Abnormal mental status. Improving. Secondary to small acute strokes: Probably embolic. Toxic metabolic factors from her bacteremia/sepsis may also be playing a role. History of PMR, chronic steroid therapy. On stress coverage. We can probably stop this and place her back on her usual prednisone doses. No evidence of hypotension or adrenal insufficiency currently. History of reversible airways obstruction. On inhaled bronchodilators and steroids. Plan: Continue antibiotics, supportive care in the intensive care unit. JONATHAN per Cardiology at some point. Reduce steroids. Subjective: Doing well, feels better. Less word-finding issues. Reports some mild right lower extremity weakness. Objective: Vital Signs Temp Pulse Resp BP Pulse Ox 36.6 C 101 H 17 132/82 H 97 02/20/17 12:00 02/20/17 12:34 02/20/17 12:34 02/20/17 12:34 02/20/17 12:34 Laboratory Results 02/20/17 05:45 02/20/17 05:45 02/19/17 02/20/17 02/21/17 05:59 05:59 05:59 Intake Total 2584 3100 Output Total 475 650 Balance 2109 2450 PT 17.8 SEC (12.0-15.0) H 02/19/17 05:10 INR 1.47 (0.83-1.16) H 02/19/17 05:10 Physical Exam - Physical Exam General Appearance: alert, no apparent distress EENT: other (Nasal cannula 2 L: 97%) Neck: normal inspection Respiratory: lungs clear (Anteriorly), decreased breath sounds (At bases), No rhonchi (Minimal congestion with cough) Cardiac/Chest: tachycardia Abdomen: normal bowel sounds, non-tender, soft, No mass Extremities: No pedal edema Neuro/Psych: no motor/sensory deficits (In bed, hard to assess subtle weakness) , No cognition abnormalities (Oriented x3) ICD10 Worksheet Patient Problems: Problems Problem Status Onset Encephalopathy acute Acute
--- NOTE | 2017-02-20 16:19 | HOSPPROG ---
Hospitalist Progress Note Assessment/Plan: 87 yo F with PMH of PMR, RAD, GERD pw acute encephalopathy in the setting of presumed sepsis # acute encephalopathy: multifactorial and related to infection as well as cva found on brain mri. Today she remains confused intermittently c/w delerium. # sepsis: HD stable, improved on abx # bacteremia: likely 2/2 diverticulitis versus endocarditis, ID following, continued on vanc/zosyn # cva: multiple small infarcts noted, possibly embolic, neurology consulted, no antiplt or anticoagulant at this time # VHD: with preserved EF but mitral valve calcification and mild to moderate MS , cannot exclude vegetation as above. JONATHAN pending # PMR: on chronic steroids prior to admission, has been npo and no signs of adrenal insufficiency , but will start IV steroids for now and resume her home dose when taking PO given acute infection and desire to avoid adrenal crisis # RAD: no e/o acute exacerbation, continue usual inhalers # Dispo: IP status, multiple high risk presenting issues, resides in [facility] independent living Care plan reviewed with Dr. Tovar and multidisciplinary care team on rounds. Subjective: no significant overnight events, patient remains confused this am and talking about things being missing from her room etc Objective: Vital Signs Temp Pulse Resp BP Pulse Ox 36.6 C 101 H 17 132/82 H 97 02/20/17 12:00 02/20/17 12:34 02/20/17 12:34 02/20/17 12:34 02/20/17 12:34 Laboratory Results 02/20/17 05:45 02/20/17 05:45 02/19/17 02/20/17 02/21/17 05:59 05:59 05:59 Intake Total 2584 3100 Output Total 475 650 350 Balance 2109 2450 -350 PT 17.8 SEC (12.0-15.0) H 02/19/17 05:10 INR 1.47 (0.83-1.16) H 02/19/17 05:10 awake alert confused anicteric op clear rrr tachy cta soft nt nd no cce warm dry well perfused tangential, oriented x 1 - Time Spent With Patient Time Spent with Patient: greater than 35 minutes Time Spent with Patient: Greater than 35 minutes spent on this patients care, greater than 50% of time spent counseling, educating, and coordinating care regarding the above mentioned plan. ICD10 Worksheet Patient Problems: Problems Problem Status Onset Encephalopathy acute Acute
[2017-02-20] MEDS: NS 1,000 ML IV SCH (17:47)
[2017-02-21] MEDS: PIPERACILLIN/TAZO 3.375 GM/DEX 50 ML IV SCH ×3 (00:03→12:07)
[2017-02-21] MEDS: NS 1,000 ML IV SCH ×2 (04:14→12:21)
[2017-02-21] MEDS: prednisoLONE ACET 1% 5 ML OPHT.BTL LEFTEYE SCH ×4 (05:43→19:37)
[2017-02-21 06:00] LABS: % IMMATURE GRANULYOCYTES 0.5 % (0.0-1.1); ABSOLUTE IMMATURE GRANULOCYTES 0.05 10^3/uL (0.00-0.10); ADD DIFF? NO; ADD MORPH? NO; ADD SCAN? NO; ATYPICAL LYMPHOCYTE FLAG 0 (0-99); FRAGMENT RBC FLAG 0 (0-99); HEMATOCRIT 37.5 % (38.0-47.0); HEMOGLOBIN 12.4 g/dL (12.6-16.3); LEFT SHIFT FLG 20 (0-99); LIPEMIA HEMOLYSIS FLAG 80 (0-99); MEAN CELL HEMOGLOBIN 27.1 pg (27.9-34.1); MEAN CELL HEMOGLOBIN CONCENTR. 33.1 g/dL (32.4-36.7); MEAN CELL VOLUME 81.9 fL (81.5-99.8); PLATELET CLUMPS FLAG 0 (0-99); PLATELET COUNT 186 10^3/uL (150-400); RED BLOOD CELL COUNT 4.58 10^6/uL (4.18-5.33); RED CELL DISTRIBUTION WIDTH 15.4 % (11.5-15.2)
[2017-02-21 06:21] LABS: ANION GAP 10 mEq/L (8-16); CARBON DIOXIDE 25 mEq/l (22-31); CHLORIDE 108 mEq/L (97-110); CHOLESTEROL 153 mg/dL (140-220); CHOLESTEROL/HDL RATIO 4.03 RATIO (1.00-4.44); CREATININE 0.7 mg/dL (0.6-1.0); GLOMERULAR FILTRATION RATE > 60; GLUCOSE 152 mg/dL (70-100); HIGH DENSITY LIPOPROTEIN 38 mg/dL (40-85); LDL/HDL RATIO 2.47 RATIO (1.00-3.22); LOW DENSITY LIPOPROTEIN 94 mg/dL (80-100); MAGNESIUM 2.2 mg/dL (1.6-2.3); NON-HIGH DENSITY LIPOPROTEIN 115 mg/dL (90-129); POTASSIUM 3.4 mEq/L (3.5-5.2); SODIUM 143 mEq/L (134-144); TRIGLYCERIDE 108 mg/dL (35-135); VERY LOW DENSITY LIPOPROTEINS 21 mg/dL (8-25)
[2017-02-21] MEDS: ENOXAPARIN 40 MG/0.4 ML SYR SC SCH (08:33)
[2017-02-21] MEDS: BECLOMETHASONE QVAR 80 MDI IH SCH ×2 (09:37→22:05)
--- NOTE | 2017-02-21 10:08 | NEUROPROG ---
Assessment: INTERVAL HISTORY: Still with trace RUE/RLE weakness, only noticed when working with PT. No new complaints. EXAM: VS reviewed in EMR. Intermittently tachycardiac. Afebrile. Stable from initial eval - still with trace UMN pattern weakness in RUE/RLE. DATA: Labs reviewed in EMR - WBCs back up today at 10.55. 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 Suspect septic embolization given septicemia with Strep constellatus, likely originating from diverticulitis, then progressive to bacteremia with seeding of the mitral valve (heavily calcified MV with ? veg growth). Still awaiting JONATHAN (don't see this ordered yet). Cont to hold antithrombotics given high risk of hemorrhagic conversion with septic embolic. Goal normotension - balance aggressive treatment with risk of hypotension from sepsis. PT/OT. Cont supportive measures and treatment/investigation into infection per primary team and other consulting services. 25 mins in direct patient care activities on the floor. Objective: Vital Signs Temp Pulse Resp BP Pulse Ox 36.5 C 105 H 16 138/73 H 99 02/21/17 07:27 02/21/17 09:38 02/21/17 09:38 02/21/17 07:27 02/21/17 09:38 Laboratory Results 02/21/17 05:50 02/21/17 05:50 02/20/17 02/21/17 02/22/17 05:59 05:59 05:59 Intake Total 3100 2941 Output Total 650 350 Balance 2450 2591 PT 17.8 SEC (12.0-15.0) H 02/19/17 05:10 INR 1.47 (0.83-1.16) H 02/19/17 05:10 Allergies/Adverse Reactions: No Known Allergies Allergy (Unverified 02/19/17 11:50)
--- NOTE | 2017-02-21 10:33 | HOSPPROG ---
Hospitalist Progress Note Assessment/Plan: DIAGNOSES: -SUSPECTED SBE WITH STREPTOCOCCAL BACTEREMIA -MULTIPLE EMBOLIC CVAS, mild deficits -ENCEPHALOPATHY, resolving -DIVERTICULITIS -POLYMYALGIA RHEUMATICA, REACTIVE AIRWAY DISEASE Pt seen on multidisc rounds today I have reviewed with Jaime Moreno > total visit time > 35 minutes today PLANS: -I have ordered JONATHAN for today, will discuss w cardiology -continue current abx -PT and OT -she may well be a candidate for consideration of valve surgery with her multiple embolic strokes; will review her ANTONIO and discuss further with Dr. Pedroza and Dr. 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0) H 02/19/17 05:10 INR 1.47 (0.83-1.16) H 02/19/17 05:10 - Time Spent With Patient Time Spent with Patient: greater than 35 minutes Time Spent with Patient: Greater than 35 minutes spent on this patients care, greater than 50% of time spent counseling, educating, and coordinating care regarding the above mentioned plan. ICD10 Worksheet Patient Problems: Problems Problem Status Onset Encephalopathy acute Acute
[2017-02-21] MEDS ORDERED: PROTOCOL POTASSIUM 1 DOSE MISC PRN (11:58)
[2017-02-21] MEDS: predniSONE 10 MG TAB PO SCH (12:36)
[2017-02-21] MEDS: VENLAFAXINE XR 150 MG CAP PO SCH (12:36)
[2017-02-21] MEDS: VANCOMYCIN 1.25 GM in D5W 250 ML IV SCH (12:39)
--- NOTE | 2017-02-21 13:19 | CPEKG ---
Heart Rate: 95 RR Interval: 632 QRSD Interval: 80 QT Interval: 372 QTC Interval: 468 QRS [place]: -13 T Wave [place]: 71 EKG Severity - ABNORMAL ECG - EKG Impression: ATRIAL FIBRILLATION, V-RATE 65-128 EKG Impression: PROBABLE INFERIOR INFARCT, OLD Electronically Signed By: Julio César Fajardo 22-Feb-2017 07:16:48
[2017-02-21] MEDS ORDERED: MIDAZOLAM 2 MG/2 ML VIAL ONE (13:21)
[2017-02-21] MEDS ORDERED: fentaNYL 100 MCG/2 ML INJ ONE (13:21)
--- NOTE | 2017-02-21 13:33 | PCMIDPN ---
Assessment/Plan: Assessment: Strep constellatus bacteremia. Uncertain source although diverticulitis is found in the sigmoid colon upon presentation despite minimal abdominal symptoms. Patient came to the hospital with mental status changes which have almost completely resolved. Brain MRI demonstrated 3 small acute lacunar infarcts which may or may not be due to embolization. Transthoracic echocardiogram showed no clear vegetations. JONATHAN planned for today. 1st set of follow-up blood cultures remain negative. If JONATHAN is negative for vegetation then I suspect this will be from a gastrointestinal source only. This would be further supported by quick resolution of the bacteremia as evidenced by lack of growth on the repeat cultures. Patient is currently on both vancomycin and Zosyn. Can change to Unasyn at this point. Plan: 1. Proceed with transesophageal echocardiogram. 2. Discontinue Zosyn and vancomycin. 3. Start Unasyn 3 g IV Q 6 hours. Subjective: Patient is resting comfortably in a chair in her hospital room. She is conversing with a close friend. She states she is feeling much better. She and her friend both agree that she no longer has any word-finding or mental status changes. No fevers. Objective: Vancomycin # 3 Zosyn # 3 Vital Signs Temp Pulse Resp BP Pulse Ox 36.8 C 98 18 127/77 H 96 02/21/17 11:30 02/21/17 11:30 02/21/17 11:30 02/21/17 11:30 02/21/17 11:30 Laboratory Results 02/21/17 05:50 02/21/17 05:50 02/20/17 02/21/17 02/22/17 05:59 05:59 05:59 Intake Total 3100 2941 Output Total 650 350 Balance 2450 2591 - Physical Exam General Appearance: WD/WN, alert, no apparent distress, non-toxic Respiratory: lungs clear, normal breath sounds, No respiratory distress Cardiac/Chest: regular rate, rhythm, No tachycardia Extremities: non-tender, normal inspection Abdomen: non-tender, soft, No mass Skin: normal color, warm/dry Neuro/Psych: alert, normal mood/affect, oriented x 3 ICD10 Worksheet Patient Problems: Problems Problem Status Onset Encephalopathy acute Acute
[2017-02-21] MEDS ORDERED: MIDAZOLAM 2 MG/2 ML VIAL IVP ONE (13:48)
[2017-02-21] MEDS ORDERED: NS 1,000 ML IV ONE (13:48)
[2017-02-21] MEDS ORDERED: BENZOCAINE UNIT DOSE SPRAY HURRICAINE MM ONE ×2 (13:48→13:57)
[2017-02-21] MEDS ORDERED: fentaNYL 100 MCG/2 ML INJ IVP ONE (13:48)
--- NOTE | 2017-02-21 14:45 | PDCARTEE ---
CAR JONATHAN CAR JONATHAN: Consent was obtained and time out was performed after risks and benefits were discussed. Patient was positioned on the left lateral side. Heart rate, blood pressure, respirations, and oxygen sats were monitored. JONATHAN probe was placed without difficulty and standard views were obtained. Prelim report: Normal LVEF Mild to mod LVH Biatrial dilation with "smoke" Patient was in atrial fibrillation No obvious thrombus to the EBONY Moderate mitral regurgitation with moderate annular calcification (posterior moreso than anterior) Vegetation with mobility was noted to the anterior leaflet Trileaflet aortic valve with moderate sclerosis and mild insufficiency Mild TR Poor visualization of the pulmonic valve Bubble contrast injection was negative for right to left shunt No complications Formal report is pending I spoke with Dr. Verenice Tovar, Dr. Dirk Genao, and Dr. Kassidy Rodriguez about the results.
--- NOTE | 2017-02-21 14:56 | ECHO ---
[id number] + + [address] : : [facility] [address] : : [phone] + + Transesophageal Echocardiographic Report + ---------+ :Name: HESHAM SANDOVAL CStudy Date: 02/21/2017 01:54 PM : : Hospital Admission Number: [id number] Loca tion: 240: :: 1930 Gender: Female : :Age: 87 yrs Race: WH : :Reason For Study: Eval for endocarditis : + ---------+ Left Ventricle The left ventricle is normal in size. There is mild to moderate concentric left ventricular hypertrophy. Left ventricular systolic function is normal. The left ventricular wall motion is normal. Right Ventricle The right ventricle is grossly normal size. The right ventricular wall motion is normal. Atria Injection of contrast documented no interatrial shunt. No thrombus is detected in the left atrial appendage. The left atrium is mildly dilated. The right atrium is mildly dilated. Mitral Valve The mitral valve leaflets appear thickened, but open well. Vegetation noted on the anterior mitral leaflet (approximately 4 X 5 in size and 1.25 cm in length. There is mild to moderate mitral regurgitation. Tricuspid Valve Normal tricuspid valve. There is no tricuspid valve vegetation. There is mild tricuspid regurgitation. Aortic Valve Moderate to severe AO calcification. There is no aortic valvular vegetation. Mild aortic regurgitation. Pulmonic Valve The pulmonic valve is not well visualized. Vessels Moderate atherosclerotic plaque(s) in the descending aorta. Pericardium There is no pericardial effusion. Procedure With heart rate, blood pressure and oximetry monitered the patient was administered IV Versed, fentanyl and the bite block in place, the throat was anesthetized with topical spray. The Omniplane transesophageal probe was passed without difficulty. Conclusion A 2D transesophageal echocardiogram with color flow Doppler was performed. (1) Left ventricular systolic ejection fraction was normal (55%) - grossly normal wall motion (2) Mild to moderate concentric left ventricular hypertrophy (3) Diastolic function was not assessed (4) Grossly normal right ventricular size and function (5) Mild biatrial dilation - bubble contrast injection was negative - no thrombus to the left atrial appendage (6) Mild to moderate mitral regurgitation - moderate size veggetation to the anterior leaflet - approximately 4 X 5 in size and 1.25 cm in length. (7) Trileaflet aortic valve with moderate sclerosis and mild insufficiency (8) Mild tricuspid regurgitation (9) Poor visualization of the pulmonic valve (10) Moderate atheroma to the descending and transverse aorta (11) In comparison to surface echo, better visualization of the mitral valve is noted, and the vegetation is clearly appreciated. Final Reading Physician: Shiela Giordano signed on 02/21/2017 02:55 PM Ordering Physician: Darryl Genao Performed By: Abilio Pedroza MD
[2017-02-21 18:12] LABS: POTASSIUM 3.5 mEq/L (3.5-5.2)
[2017-02-21] MEDS: AMPICILLIN/SULBACTAM 3 GM in NS 100 ML IV SCH ×2 (18:19→23:48)
[2017-02-21] MEDS ORDERED: POTASSIUM CL 10 MEQ TAB PO ONE (18:26)
--- NOTE | 2017-02-21 19:53 | PDINTPN ---
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 Id and sensitivity pending. Possibly from diverticulitis, possibly from mitral valve or both. 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 Clinically stable. On antibiotics. Infectious Disease and Cardiology following. CVS aware. Atrial fibrillation: New onset. Full-dose anticoagulation contraindicated. On prophylactic anticoagulation. Per Cardiology. Abnormal mental status. Improved. Secondary to small acute strokes: embolic. History of PMR, chronic steroid therapy. On stress coverage. We can probably stop this and place her back on her usual prednisone doses. No evidence of hypotension or adrenal insufficiency currently. History of reversible airways obstruction. On inhaled bronchodilators and steroids. Plan: Continue antibiotics, supportive care in the intensive care unit. Close neurologic and cardiovascular observation is indicated. Will continue current low-dose steroids. Subjective: Doing okay, feels better. Feels stronger. Less word-finding problems. Objective: Vital Signs Temp Pulse Resp BP Pulse Ox 36.6 C 103 H 16 140/75 H 95 02/21/17 16:40 02/21/17 16:40 02/21/17 16:40 02/21/17 16:40 02/21/17 16:40 Laboratory Results 02/21/17 05:50 02/21/17 17:40 02/20/17 02/21/17 02/22/17 05:59 05:59 05:59 Intake Total 3100 2941 1114 Output Total 650 350 Balance 2450 2591 1114 PT 17.8 SEC (12.0-15.0) H 02/19/17 05:10 INR 1.47 (0.83-1.16) H 02/19/17 05:10 JONATHAN: Large mitral valve vegetation seen. Laboratory Tests 02/21/17 05:50 Sodium 143 Potassium 3.4 L Chloride 108 Carbon Dioxide 25 Anion Gap 10 BUN 22 Creatinine 0.7 Glucose 152 H Calcium 10.0 Magnesium 2.2 Physical Exam - Physical Exam General Appearance: alert, no apparent distress EENT: PERRL/EOMI, other (On room air. Slight right facial droop?) Neck: normal inspection Respiratory: lungs clear Cardiac/Chest: irregularly irregular (AFib) Abdomen: normal bowel sounds, non-tender, soft Skin: normal color, warm/dry Extremities: pedal edema Neuro/Psych: No no motor/sensory deficits (Slight weakness on the right?), No cognition abnormalities ICD10 Worksheet Patient Problems: Problems Problem Status Onset Encephalopathy acute Acute
[2017-02-21] MEDS ORDERED: predniSONE 5 MG TAB PO SCH (21:00)
[2017-02-22 05:00] LABS: MAGNESIUM 2.1 mg/dL (1.6-2.3); POTASSIUM 4.2 mEq/L (3.5-5.2)
[2017-02-22] MEDS: prednisoLONE ACET 1% 5 ML OPHT.BTL LEFTEYE SCH ×4 (05:52→20:36)
[2017-02-22] MEDS: AMPICILLIN/SULBACTAM 3 GM in NS 100 ML IV SCH ×4 (05:52→23:26)
[2017-02-22] MEDS: ENOXAPARIN 40 MG/0.4 ML SYR SC SCH (08:13)
[2017-02-22] MEDS: VENLAFAXINE XR 150 MG CAP PO SCH (08:13)
[2017-02-22] MEDS: predniSONE 10 MG TAB PO SCH (08:13)
--- NOTE | 2017-02-22 09:30 | HOSPPROG ---
Hospitalist Progress Note Assessment/Plan: DIAGNOSES: -SUSPECTED SBE WITH STREPTOCOCCAL BACTEREMIA -MULTIPLE EMBOLIC CVAS, mild deficits -ATRIAL FIBRILLATION, rate controlled (not on full dose anticoag now due to acute cva's) -ENCEPHALOPATHY, resolving -DIVERTICULITIS, ? source of infection causing SBE -NAVNEET, uses CPAP at home (has not had CPAP here as she did not mention this diagnosis or treatment prior to today) -POLYMYALGIA RHEUMATICA, REACTIVE AIRWAY DISEASE She is stable from neuro standpoint. Dr Rodriguez has reviewed her case and is not recommending surgery. She is stable from a heart perspective. She will need to be placed on full dose anticoagulation at some point - we would wait for 2 weeks after her presentation with multiple CVAs, but may need to reimage to be certain no further focal lesions as she has a fairly high risk valve lesion along with A Fib. If she has more embolic lesions in the interim, that could again leave risk of hemorrhagic transformation. I have reviewed this with Dr Emery, who agrees that reimaging should be done Her complaint of dyspnea from last night may just be from not having her CPAP PLANS: -I have requested she get her cpap brought in and that will be done by her family today -continue current abx -PT and OT -will review further with Cardiology, ID -continue low dose lovenox for now in light of septic brain emboli -plan on reimaging brain w OWEN w contrast 2 weeks after start of antibiotics to aid in planning likely anticoag SUBJECTIVE: notes she had some occaisional brief spells of dyspnea last night - she now mentions she has NAVNEET and has a CPAP device to use at home which we did not know of no chills, no pain, no new neurologic sxs She developed A Fib yest evening, rate controlled and asymptomatic OBJECTIVE Vitals reviewed: Some mild tachycardia otherwise stable without fever 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, 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: A Fib Exam: alert oriented No new changes in speech/language, focal motor function, cranial nerves skin warm dry color ok resps not labored lungs clear BSs heart regular abd soft nondistended nontender, bowel sounds present limbs warm, no edema iv site ok Objective: Vital Signs Temp Pulse Resp BP Pulse Ox 36.6 C 102 H 26 H 149/100 H 96 02/22/17 08:00 02/22/17 08:00 02/22/17 08:00 02/22/17 08:00 02/22/17 08:00 Laboratory Results 02/21/17 05:50 02/22/17 04:35 02/21/17 02/22/17 02/23/17 06:59 06:59 06:59 Intake Total 2941 1964 Output Total 350 395 Balance 2591 1569 PT 17.8 SEC (12.0-15.0) H 02/19/17 05:10 INR 1.47 (0.83-1.16) H 02/19/17 05:10 ICD10 Worksheet Patient Problems: Problems Problem Status Onset Encephalopathy acute Acute
[2017-02-22] MEDS: BECLOMETHASONE QVAR 80 MDI IH SCH ×2 (09:52→20:37)
--- NOTE | 2017-02-22 09:58 | NEUROPROG ---
Assessment: INTERVAL HISTORY: Doing well. Found to have MV vegetation on JONATHAN yesterday. Antibiotics being tailored by ID. EXAM: VS reviewed in EMR. Intermittently tachycardiac. Afebrile. RUE still with trace weakness, but RLE is strong today. 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 Suspect septic embolization given septicemia with Strep constellatus, likely originating from diverticulitis, then progressive to bacteremia with seeding of the mitral valve. Evidence of MV vegetation on JONATHAN. Cont to hold antithrombotics given high risk of hemorrhagic conversion with septic embolic. Goal normotension - balance aggressive treatment with risk of hypotension from sepsis. PT/OT. Cont supportive measures and treatment/investigation into infection per primary team and other consulting services. Would consult with cardiology regarding anticoagulation long-term. Specifically , is this valvular afib provoked by her infection/vegetation which may require short-term anticoagulation, or is she at risk for ongoing paroxysmal afib. No way fo truly knowing if she was in and out of afib prior to admission - review of records from [facility] dating back to 2013 does not indicate a prior history. In either case, I would repeat an MRI brain wow in 2 weeks, which will be helpful in determining if she is having further embolic events (which may require us to reconsider surgery) or ongoing inflammation within her embolic lesions, as well as to determine safety of starting anticoagulation. 25 mins in direct patient care activities on the floor. Case discussed with Dr. Genao. Will sign off. Please recall PRN. She can followup with me in clinic after repeat MRI in 2 weeks. Objective: Vital Signs Temp Pulse Resp BP Pulse Ox 36.6 C 102 H 26 H 149/100 H 96 02/22/17 08:00 02/22/17 08:00 02/22/17 08:00 02/22/17 08:00 02/22/17 08:00 Laboratory Results 02/21/17 05:50 02/22/17 04:35 02/21/17 02/22/17 02/23/17 05:59 05:59 05:59 Intake Total 2941 1964 Output Total 350 185 210 Balance 2591 1779 -210 PT 17.8 SEC (12.0-15.0) H 02/19/17 05:10 INR 1.47 (0.83-1.16) H 02/19/17 05:10 Allergies/Adverse Reactions: No Known Allergies Allergy (Unverified 02/19/17 11:50)
[2017-02-22] MEDS ORDERED: ALTEPLASE 2 MG VIAL IVP PRN (11:18)
--- NOTE | 2017-02-22 11:22 | PCMIDPN ---
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 Complicated by embolic stroke. Blood culture show clearing of bacteremia which is encouraging. Current plans are for medical management of endocarditis. Continue Unasyn currently as this provides activity against endocarditis and diverticulitis. 02/22/17 11:19 Subjective: Patient feels better. Overall speech has improved. Objective: Vital Signs Temp Pulse Resp BP Pulse Ox 36.6 C 136 H 14 149/100 H 94 02/22/17 08:00 02/22/17 10:18 02/22/17 09:55 02/22/17 08:00 02/22/17 10:18 Laboratory Results 02/21/17 05:50 02/22/17 04:35 02/21/17 02/22/17 02/23/17 05:59 05:59 05:59 Intake Total 2941 1964 Output Total 350 185 210 Balance 2591 1779 -210 Unasyn # 2, antibiotics # 4 Blood cultures 02/20/2017 no growth Blood cultures 02/18/2017 2/2 Streptococcus constellatus JONATHAN with 4 x 5 mm vegetation which measures 1.25 cm in length with mild-to- moderate MR - Physical Exam General Appearance: alert, no apparent distress EENT: pharynx normal, No conjunctival petechiae Respiratory: lungs clear, No respiratory distress Cardiac/Chest: irregularly irregular Abdomen: non-tender, No distended Skin: No embolic lesions ICD10 Worksheet Patient Problems: Problems Problem Status Onset Encephalopathy acute Acute
[2017-02-22 19:56] LABS: POTASSIUM 3.4 mEq/L (3.5-5.2)
[2017-02-22] MEDS ORDERED: POTASSIUM CL 10 MEQ TAB PO ONE (20:16)
[2017-02-22] MEDS: METOPROLOL TARTRATE 25 MG TAB PO SCH (23:25)
[2017-02-23 04:52] LABS: POTASSIUM 3.4 mEq/L (3.5-5.2)
[2017-02-23] MEDS: AMPICILLIN/SULBACTAM 3 GM in NS 100 ML IV SCH ×4 (05:33→23:29)
[2017-02-23] MEDS: prednisoLONE ACET 1% 5 ML OPHT.BTL LEFTEYE SCH ×4 (05:39→20:23)
[2017-02-23] MEDS ORDERED: POTASSIUM CL 10 MEQ TAB PO ONE (07:42)
[2017-02-23] MEDS: ALBUTEROL 3 ML DEYVIAL IH PRN (08:14)
[2017-02-23] MEDS: BECLOMETHASONE QVAR 80 MDI IH SCH ×2 (08:14→22:05)
[2017-02-23] MEDS: ENOXAPARIN 40 MG/0.4 ML SYR SC SCH (08:38)
[2017-02-23] MEDS: METOPROLOL TARTRATE 25 MG TAB PO SCH ×2 (08:38→20:23)
[2017-02-23] MEDS: predniSONE 10 MG TAB PO SCH (08:38)
[2017-02-23] MEDS: VENLAFAXINE XR 150 MG CAP PO SCH (08:38)
--- NOTE | 2017-02-23 18:31 | HOSPPROG ---
Hospitalist Progress Note Assessment/Plan: DIAGNOSES: -SUSPECTED SBE WITH STREPTOCOCCAL BACTEREMIA -MULTIPLE EMBOLIC CVAS, mild deficits -ATRIAL FIBRILLATION, rate controlled (not on full dose anticoag now due to acute cva's) -ENCEPHALOPATHY, resolving -DIVERTICULITIS, ? source of infection causing SBE -NAVNEET, uses CPAP at home (has not had CPAP here as she did not mention this diagnosis or treatment prior to today) -POLYMYALGIA RHEUMATICA, REACTIVE AIRWAY DISEASE She remains stable from neuro standpoint. Dr Rodriguez has reviewed her case and is not recommending surgery. She remains stable from a heart perspective. She will need to be placed on full dose anticoagulation at some point - we would wait for 2 weeks after her presentation with multiple CVAs, but may need to reimage to be certain no further focal lesions as she has a fairly high risk valve lesion along with A Fib. If she has more embolic lesions in the interim, that could again leave risk of hemorrhagic transformation. 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 rate control Exam: alert oriented, looks more energetic today No new changes in speech/language, focal motor function, cranial nerves skin warm dry color ok resps not labored lungs clear BSs heart regular abd soft nondistended nontender, bowel sounds present limbs warm, no edema iv site ok Objective: Vital Signs Temp Pulse Resp BP Pulse Ox 36.4 C 98 18 151/102 H 93 02/23/17 15:34 02/23/17 17:49 02/23/17 15:34 02/23/17 17:49 02/23/17 15:34 Laboratory Results 02/21/17 05:50 02/23/17 04:30 02/22/17 02/23/17 02/24/17 06:59 06:59 06:59 Intake Total 1964 1665 1100 Output Total 395 Balance 1569 1665 1100 PT 17.8 SEC (12.0-15.0) H 02/19/17 05:10 INR 1.47 (0.83-1.16) H 02/19/17 05:10 ICD10 Worksheet Patient Problems: Problems Problem Status Onset Encephalopathy acute Acute
[2017-02-23 19:05] LABS: POTASSIUM 4.1 mEq/L (3.5-5.2)
[2017-02-24] MEDS: prednisoLONE ACET 1% 5 ML OPHT.BTL LEFTEYE SCH ×4 (05:52→20:17)
[2017-02-24] MEDS: AMPICILLIN/SULBACTAM 3 GM in NS 100 ML IV SCH ×4 (05:52→23:55)
[2017-02-24 06:32] LABS: POTASSIUM 3.9 mEq/L (3.5-5.2)
[2017-02-24] MEDS ORDERED: POTASSIUM CL 10 MEQ TAB PO ONE (07:26)
[2017-02-24] MEDS: BECLOMETHASONE QVAR 80 MDI IH SCH ×2 (08:24→19:18)
[2017-02-24] MEDS: ALBUTEROL 3 ML DEYVIAL IH PRN (08:24)
[2017-02-24] MEDS: predniSONE 10 MG TAB PO SCH (08:54)
[2017-02-24] MEDS: METOPROLOL TARTRATE 25 MG TAB PO SCH ×2 (08:54→20:18)
[2017-02-24] MEDS: VENLAFAXINE XR 150 MG CAP PO SCH (08:54)
[2017-02-24] MEDS: ENOXAPARIN 40 MG/0.4 ML SYR SC SCH (08:54)
[2017-02-24] MEDS ORDERED: FUROSEMIDE 20 MG/2 ML VIAL IVP ONE (16:13)
--- NOTE | 2017-02-24 17:09 | HOSPPROG ---
Hospitalist Progress Note Assessment/Plan: DIAGNOSES: -SUSPECTED SBE WITH STREPTOCOCCAL BACTEREMIA -MULTIPLE EMBOLIC CVAS, mild deficits -ATRIAL FIBRILLATION, rate controlled (not on full dose anticoag now due to acute cva's) -ENCEPHALOPATHY, resolving -DIVERTICULITIS, ? source of infection causing SBE -NAVNEET, uses CPAP at home (has not had CPAP here as she did not mention this diagnosis or treatment prior to today) -POLYMYALGIA RHEUMATICA, REACTIVE AIRWAY DISEASE She remains stable from neuro standpoint. Dr Rodriguez has reviewed her case and is not recommending surgery. From a heart perspective, she does appear to have more edema today and had some orthopnea last night. Diuresis is indicated at this time. I do not think that this necessarily represents valve failure but if she continues to have these symptoms or fluid accumulation will need to repeat echo her. She will need to be placed on full dose anticoagulation at some point - we would wait for 2 weeks after her presentation with multiple CVAs, but may need to reimage to be certain no further focal lesions as she has a fairly high risk valve lesion along with A Fib. If she has more embolic lesions in the interim, that could again leave risk of hemorrhagic transformation. I have reviewed this with Dr Emery, who agrees that reimaging should be done PLANS: -Will give Lasix now and prescribed Christo stockings and low-salt diet. If she continues to have orthopnea or edema will review echo her to be sure that her valve is not failing -continue current abx -PT and OT -continue low dose lovenox for now in light of septic brain emboli; likely full anticoag but no sooner than 2 weeks -plan on reimaging brain w MRI w contrast 2 weeks after start of antibiotics to aid in planning likely anticoag SUBJECTIVE: had some orthopnea last night. 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8 SEC (12.0-15.0) H 02/19/17 05:10 INR 1.47 (0.83-1.16) H 02/19/17 05:10 ICD10 Worksheet Patient Problems: Problems Problem Status Onset Encephalopathy acute Acute
--- NOTE | 2017-02-24 17:22 | PCMIDPN ---
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 Continue Unasyn while hospitalized. Once stable for discharge, could use ceftriaxone 2 g IV daily combined with oral metronidazole 500 mg orally twice daily with anticipated 2 week total duration of therapy which provides activity for both endocarditis and diverticulitis. Thereafter, would complete additional 4 weeks of therapy targeting solely endocarditis with ceftriaxone alone. 02/24/17 17:19 Subjective: Overall feels better with some intermittent slurring of speech. No abdominal pain. Objective: Vital Signs Temp Pulse Resp BP Pulse Ox 36.8 C 79 18 160/82 H 94 02/24/17 15:48 02/24/17 15:48 02/24/17 15:48 02/24/17 15:48 02/24/17 15:48 Laboratory Results 02/21/17 05:50 02/24/17 06:00 02/23/17 02/24/17 02/25/17 05:59 05:59 05:59 Intake Total 1665 1450 1800 Output Total 210 Balance 1455 1450 1800 Unasyn # 4, antibiotics # 6 Blood cultures 02/20/2017 no growth - Physical Exam General Appearance: alert, no apparent distress EENT: No conjunctival petechiae Respiratory: lungs clear, No respiratory distress Cardiac/Chest: irregularly irregular Abdomen: non-tender, No distended Skin: No embolic lesions Neuro/Psych: other (Occasional slurring of speech) ICD10 Worksheet Patient Problems: Problems Problem Status Onset Encephalopathy acute Acute
[2017-02-24 17:49] LABS: POTASSIUM 4.5 mEq/L (3.5-5.2)
[2017-02-25] MEDS: AMPICILLIN/SULBACTAM 3 GM in NS 100 ML IV SCH ×3 (05:35→17:04)
[2017-02-25] MEDS: prednisoLONE ACET 1% 5 ML OPHT.BTL LEFTEYE SCH ×5 (05:40→20:38)
[2017-02-25 05:46] LABS: % IMMATURE GRANULYOCYTES 1.3 % (0.0-1.1); ABSOLUTE IMMATURE GRANULOCYTES 0.15 10^3/uL (0.00-0.10); ADD DIFF? NO; ADD MORPH? NO; ADD SCAN? NO; ATYPICAL LYMPHOCYTE FLAG 70 (0-99); FRAGMENT RBC FLAG 0 (0-99); HEMATOCRIT 35.7 % (38.0-47.0); HEMOGLOBIN 11.7 g/dL (12.6-16.3); LEFT SHIFT FLG 10 (0-99); LIPEMIA HEMOLYSIS FLAG 80 (0-99); MEAN CELL HEMOGLOBIN 26.7 pg (27.9-34.1); MEAN CELL HEMOGLOBIN CONCENTR. 32.8 g/dL (32.4-36.7); MEAN CELL VOLUME 81.5 fL (81.5-99.8); PLATELET CLUMPS FLAG 20 (0-99); PLATELET COUNT 198 10^3/uL (150-400); RED BLOOD CELL COUNT 4.38 10^6/uL (4.18-5.33); RED CELL DISTRIBUTION WIDTH 15.1 % (11.5-15.2)
[2017-02-25 06:07] LABS: ANION GAP 8 mEq/L (8-16); CALCIUM 9.9 mg/dL (8.5-10.4); CARBON DIOXIDE 32 mEq/l (22-31); CHLORIDE 100 mEq/L (97-110); CREATININE 0.7 mg/dL (0.6-1.0); GLOMERULAR FILTRATION RATE > 60; GLUCOSE 89 mg/dL (70-100); POTASSIUM 3.7 mEq/L (3.5-5.2); SODIUM 140 mEq/L (134-144)
[2017-02-25] MEDS: METOPROLOL TARTRATE 25 MG TAB PO SCH ×2 (08:26→20:38)
[2017-02-25] MEDS: VENLAFAXINE XR 150 MG CAP PO SCH (08:26)
[2017-02-25] MEDS: predniSONE 10 MG TAB PO SCH (08:27)
[2017-02-25] MEDS: ENOXAPARIN 40 MG/0.4 ML SYR SC SCH (08:31)
[2017-02-25] MEDS ORDERED: POTASSIUM CL 10 MEQ TAB PO ONE ×2 (09:22→13:30)
[2017-02-25] MEDS: BECLOMETHASONE QVAR 80 MDI IH SCH ×2 (10:18→21:05)
--- NOTE | 2017-02-25 15:44 | HOSPPROG ---
Hospitalist Progress Note Assessment/Plan: DIAGNOSES: -SUSPECTED SBE WITH STREPTOCOCCAL BACTEREMIA -MULTIPLE EMBOLIC CVAS, mild deficits -ATRIAL FIBRILLATION, rate controlled (not on full dose anticoag now due to acute cva's) -ENCEPHALOPATHY, resolving -DIVERTICULITIS, ? source of infection causing SBE -NAVNEET, uses CPAP at home (has not had CPAP here as she did not mention this diagnosis or treatment prior to today) -POLYMYALGIA RHEUMATICA, REACTIVE AIRWAY DISEASE I reviewed w Dr Sandoval and case management today. She is at a point where discharge is feasible in terms of her stability. However we are still looking into whether she has home IV abx coverage w insurance or would need to go to SNF. She will need to treat another week for diverticulitis and a total of 6 weeks for her strep - antibiotic choice will be impacted by whether she is at home or SNF, so will decide once we understander her coverage. Also as she needs outpt ID, cardiology, and neurology f/u, we are trying to determine whether she can see the [facility] MD[facility] she has seen here or will need all her f/u thru [place] [facility]. She remains stable from neuro standpoint. Dr Rodriguez has reviewed her case and is not recommending surgery. From a heart perspective, her edema is notably decreased after lasix. She did sleep better last night, not sure if this is from the diuretic or the fact we fixed her CPAP mask last evening and it stayed on better. She will need to be placed on full dose anticoagulation at some point - we would wait for 2 weeks after her presentation with multiple CVAs, but may need to reimage to be certain no further focal lesions as she has a fairly high risk valve lesion along with A Fib. If she has more embolic lesions in the interim, that could again leave risk of hemorrhagic transformation. I have reviewed this with Dr Emery, who agrees that reimaging should be done PLANS: -continue current abx -PT and OT -continue low dose lovenox for now in light of septic brain emboli; likely full anticoag but no sooner than 2 weeks -plan on reimaging brain w MRI w contrast 2 weeks after start of antibiotics to aid in planning likely anticoag -working on DC plans as above SUBJECTIVE: had some orthopnea last night. 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 Exam: alert oriented relaxed and energetic No new changes in speech/language, focal motor function, cranial nerves skin warm dry color ok resps not labored lungs clear BSs heart regular, no audible murmur abd soft nondistended nontender, bowel sounds present limbs warm, the edema noted yesterday in ankles is resolved today iv site ok Objective: Vital Signs Temp Pulse Resp BP Pulse Ox 37.2 C 98 20 147/72 H 94 02/25/17 15:10 02/25/17 15:10 02/25/17 15:10 02/25/17 15:10 02/25/17 15:10 Microbiology 02/20/17 06:00 Blood Culture - Final Blood 02/20/17 05:45 Blood Culture - Final Blood Laboratory Results 02/25/17 05:35 02/25/17 05:35 02/24/17 02/25/17 02/26/17 06:59 06:59 06:59 Intake Total 1650 2860 Balance 1650 2860 PT 17.8 SEC (12.0-15.0) H 02/19/17 05:10 INR 1.47 (0.83-1.16) H 02/19/17 05:10 ICD10 Worksheet Patient Problems: Problems Problem Status Onset Encephalopathy acute Acute
[2017-02-25 17:36] LABS: POTASSIUM 4.8 mEq/L (3.5-5.2)
--- NOTE | 2017-02-25 17:52 | PCMIDPN ---
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 Plan to continue Unasyn for now. Patient is clinically stable and will liely be able to discharge soon. She is wanting to go directly home, but is unclear how IV abx at home would be accomplished. It is also unclear at this time if she has coverage for this option. If not, it is possible for her to go to a SNF for a period of time or transition to IV ceftriaxone with po flagyl as Dr. Block outlined in yesterday's note. Plan: 1. Continue Unasyn 3 g IV Q 6 hours. 2. Explore options for continuing therapy at discharge with case management. 02/25/17 23:17 Subjective: Patient states that although she feels weak still, she is doing better. No specific complaint. No fevers. Objective: unasyn #5 (#7) Vital Signs Temp Pulse Resp BP Pulse Ox 37.2 C 98 20 147/72 H 94 02/25/17 15:10 02/25/17 15:10 02/25/17 15:10 02/25/17 15:10 02/25/17 15:10 Microbiology 02/20/17 06:00 Blood Culture - Final Blood 02/20/17 05:45 Blood Culture - Final Blood Laboratory Results 02/25/17 05:35 02/25/17 17:10 02/24/17 02/25/17 02/26/17 05:59 05:59 05:59 Intake Total 1450 3060 1000 Balance 1450 3060 1000 - Physical Exam General Appearance: WD/WN, alert, no apparent distress, non-toxic Respiratory: lungs clear, normal breath sounds, No respiratory distress Cardiac/Chest: regular rate, rhythm, No tachycardia Abdomen: non-tender, soft Skin: normal color, warm/dry, No rash Neuro/Psych: alert, normal mood/affect, oriented x 3 ICD10 Worksheet Patient Problems: Problems Problem Status Onset Encephalopathy acute Acute
[2017-02-26] MEDS: AMPICILLIN/SULBACTAM 3 GM in NS 100 ML IV SCH ×3 (00:06→13:21)
[2017-02-26] MEDS: prednisoLONE ACET 1% 5 ML OPHT.BTL LEFTEYE SCH ×4 (05:24→20:11)
[2017-02-26 06:06] LABS: POTASSIUM 4.3 mEq/L (3.5-5.2)
[2017-02-26] MEDS: METOPROLOL TARTRATE 25 MG TAB PO SCH ×2 (08:55→20:12)
[2017-02-26] MEDS: ENOXAPARIN 40 MG/0.4 ML SYR SC SCH (08:55)
[2017-02-26] MEDS: VENLAFAXINE XR 150 MG CAP PO SCH (08:55)
[2017-02-26] MEDS: predniSONE 10 MG TAB PO SCH (08:55)
--- NOTE | 2017-02-26 09:10 | PCMIDPN ---
Assessment/Plan: Assessment/Plan: 1. 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 -Will need prolonged course of therapy for above. -Will transition to ceftriaxone + flagyl to complete remaining of days for #2 and then can stay on Ceftriaxone to complete treatment for #1 2. Diverticulitis: - previously on zosyn, now on unasyn. -has completed #8 days -see above. Meds unasyn-3g q6- 02/21/17 vanco, zosyn, 2-02/21/17 Subjective: afebrile. feeling better today. slept well last night for first time in several days, per patient. denies abd pain. occ loose stool. denies sob. speaking is better. Objective: Vital Signs Temp Pulse Resp BP Pulse Ox 36.6 C 93 18 132/98 H 92 02/26/17 04:00 02/26/17 04:00 02/26/17 04:00 02/26/17 04:00 02/26/17 04:00 Microbiology 02/20/17 06:00 Blood Culture - Final Blood 02/20/17 05:45 Blood Culture - Final Blood Laboratory Results 02/25/17 05:35 02/26/17 05:30 02/25/17 02/26/17 02/27/17 05:59 05:59 05:59 Intake Total 3060 1520 Balance 3060 1520 - Physical Exam General Appearance: alert, no apparent distress Respiratory: lungs clear Cardiac/Chest: regular rate, rhythm Extremities: No swelling Abdomen: normal bowel sounds, non-tender, soft, No distended Skin: No erythema ICD10 Worksheet Patient Problems: Problems Problem Status Onset Encephalopathy acute Acute
[2017-02-26] MEDS: BECLOMETHASONE QVAR 80 MDI IH SCH ×2 (10:27→20:11)
[2017-02-26] MEDS: metroNIDAZOLE 500 MG TAB PO SCH ×2 (13:13→20:12)
[2017-02-26] MEDS: cefTRIAXone 2 GM in D5W 50 ML IV SCH (13:14)
--- NOTE | 2017-02-26 16:11 | HOSPPROG ---
Hospitalist Progress Note Assessment/Plan: DIAGNOSES: -SUSPECTED SBE WITH STREPTOCOCCAL BACTEREMIA -MULTIPLE EMBOLIC CVAS, deficits limited to a cognitive encephalopathy (now resolved and at baseline) and general gait instability (resolving well) -ATRIAL FIBRILLATION (new), rate controlled (not on full dose anticoag now due to acute cva's) -ACUTE ENCEPHALOPATHY, DUE TO INFECTION AND MULTIPLE STROKES, RESOLVED -DIVERTICULITIS, ? source of infection causing SBE -NAVNEET, uses CPAP at home and now using here -POLYMYALGIA RHEUMATICA, REACTIVE AIRWAY DISEASE She remains stable from neuro standpoint. Dr Rodriguez has reviewed her case and is not recommending surgery. From a heart perspective, her edema is notably decreased after lasix. She did sleep well again last night. She will need to be placed on full dose anticoagulation at some point - we would wait for 2 weeks after her presentation with multiple CVAs, but may need to reimage to be certain no further focal lesions as she has a fairly high risk valve lesion along with A Fib. If she has more embolic lesions in the interim, that could again leave risk of hemorrhagic transformation. I have reviewed this with Dr Emery, who agrees that reimaging should be done She is now set to go to [facility] to complete her PT OT and antibiotic therapy. She will likely have a bed available there 02/27 The plan is to use IV Rocephin daily to complete a total 6 weeks of abx for Endocarditis, and will use Flagyl PO along with that until has had total 14 days of antibiotics to treat her diverticulitis. 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 rate control Exam: alert oriented relaxed and energetic No new changes in speech/language, focal motor function, cranial nerves skin warm dry color ok resps not labored lungs clear BSs heart regular, no audible murmur abd soft nondistended nontender, bowel sounds present limbs warm, the edema noted yesterday in ankles is resolved today iv site ok Objective: Vital Signs Temp Pulse Resp BP Pulse Ox 36.6 C 89 18 137/63 H 93 02/26/17 15:20 02/26/17 15:20 02/26/17 15:20 02/26/17 15:20 02/26/17 15:20 Laboratory Results 02/25/17 05:35 02/26/17 05:30 02/25/17 02/26/17 02/27/17 06:59 06:59 06:59 Intake Total 2860 1520 Balance 2860 1520 PT 17.8 SEC (12.0-15.0) H 02/19/17 05:10 INR 1.47 (0.83-1.16) H 02/19/17 05:10 ICD10 Worksheet Patient Problems: Problems Problem Status Onset Encephalopathy acute Acute
[2017-02-26 19:39] LABS: POTASSIUM 4.6 mEq/L (3.5-5.2)
[2017-02-27] MEDS: metroNIDAZOLE 500 MG TAB PO SCH ×3 (05:08→20:38)
[2017-02-27] MEDS: prednisoLONE ACET 1% 5 ML OPHT.BTL LEFTEYE SCH ×4 (05:09→20:37)
[2017-02-27 05:45] LABS: POTASSIUM 4.2 mEq/L (3.5-5.2)
[2017-02-27] MEDS: VENLAFAXINE XR 150 MG CAP PO SCH (08:27)
[2017-02-27] MEDS: cefTRIAXone 2 GM in D5W 50 ML IV SCH (08:27)
[2017-02-27] MEDS: ENOXAPARIN 40 MG/0.4 ML SYR SC SCH (08:27)
[2017-02-27] MEDS: METOPROLOL TARTRATE 25 MG TAB PO SCH ×2 (08:27→20:38)
[2017-02-27] MEDS: predniSONE 10 MG TAB PO SCH (08:27)
[2017-02-27] MEDS: BECLOMETHASONE QVAR 80 MDI IH SCH ×2 (09:00→20:37)
--- NOTE | 2017-02-27 15:27 | HOSPPROG ---
Hospitalist Progress Note Assessment/Plan: Patient is an 87 year old female with PMR on chronic steroids, depression, asthma, obesity who was brought to the ED with acute encephalopathy. ED work up is concerning for severe sepsis, however, source of infection is yet to be identified. She was admitted for further care. Today is my first encounter with the patient/chart reviewed. *Streptococcus Constellatus bacteremia w MV endocarditis seen by Dr Rodriguez and surgery was not recommended Ceftriaxone/ need complete 6 weeks for treatment *Diverticulitis Flagyl no diarrhea *Multiple embolic CVA's likely from mitral valve LDL is elevated/ recommended statin/ she wants to wait and talk w PCP she had an episode of acute aphasia x 5 minutes/ >24 hours ago/ she is concerned/will get a CT of head now *Atrial Fibrillation will need OAC Dr Genao spoke w [place] physician yesterday to update recommendation is 2 weeks from initial presentation/increase risk of hemorrhagic transformation if treated too soon reviewed property assessment monitor and she is in AFIB/ rate controlled overall *NAVNEET *PMR prednisone * Reactive airway disease *DVt prophylaxis: LMWH *Plan: Powerback and abx therapy Subjective: Tamela is feeling well / no headache. Objective: Vital Signs Temp Pulse Resp BP Pulse Ox 36.8 C 72 16 126/66 H 92 02/27/17 11:34 02/27/17 11:34 02/27/17 11:34 02/27/17 11:34 02/27/17 11:34 Laboratory Results 02/25/17 05:35 02/27/17 05:30 02/26/17 02/27/17 02/28/17 05:59 05:59 05:59 Intake Total 1520 700 Balance 1520 700 PT 17.8 SEC (12.0-15.0) H 02/19/17 05:10 INR 1.47 (0.83-1.16) H 02/19/17 05:10 - Physical Exam Constitutional: no apparent distress, appears nourished, not in pain Eyes: PERRL Ears, Nose, Mouth, Throat: hearing normal Cardiovascular: systolic murmur, irregularly irregular Respiratory: no respiratory distress Skin: warm Musculoskeletal: full muscle strength Neurologic: AAOx3, CN II-XII Intact, No facial droop Psychiatric: interacting appropriately, not anxious, not encephalopathic, thought process linear ICD10 Worksheet Patient Problems: Problems Problem Status Onset Encephalopathy acute Acute
--- NOTE | 2017-02-27 18:33 | PCMIDPN ---
Assessment/Plan: # Subacute Strep constellatus [place] mitral valve endocarditis and diverticulitis. 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 Blood cx cleared 02/20. Very large vegetation 4x5 --continue ceftriaxone 2gm IV daily 4-6 weeks 03/20/17 or 04/03/17, probably lean toward longer treatment BC size of veg --[place] patient, will need to contact ID at [place] for continuity of care. # Diverticulitis Day 07/04 --4 more days flagyl (already on ceftriaxone for above), MAR adjusted S. constellatus TERRIE: Pen< 0.125 ceftriaxone 0.5 Subjective: feeling well occasional loose stool but improving no itching or rash Objective: Vital Signs Temp Pulse Resp BP Pulse Ox 36.8 C 93 18 135/76 H 90 L 02/27/17 16:00 02/27/17 16:00 02/27/17 16:00 02/27/17 16:00 02/27/17 16:00 Laboratory Results 02/25/17 05:35 02/27/17 05:30 02/26/17 02/27/17 02/28/17 05:59 05:59 05:59 Intake Total 2785 337 9687 Balance 8101 269 2769 - Physical Exam General Appearance: alert, no apparent distress EENT: No scleral icterus Respiratory: lungs clear Neck: supple Cardiac/Chest: irregularly irregular Abdomen: non-tender, soft Skin: pallor, No rash Neuro/Psych: alert, normal mood/affect, oriented x 3 - Time Spent With Patient Time Spent with Patient: greater than 25 minutes (reviewed pathogenesis of endocarditis, plan treatment course) Time Spent with Patient: Greater than 25 minutes spent on this patients care, greater than 50% of time spent counseling, educating, and coordinating care regarding the above mentioned plan. ICD10 Worksheet Patient Problems: Problems Problem Status Onset Encephalopathy acute Acute
[2017-02-28] MEDS: prednisoLONE ACET 1% 5 ML OPHT.BTL LEFTEYE SCH ×4 (06:56→21:08)
[2017-02-28] MEDS: metroNIDAZOLE 500 MG TAB PO SCH ×3 (06:57→21:09)
[2017-02-28 07:37] LABS: POTASSIUM 4.3 mEq/L (3.5-5.2)
[2017-02-28] MEDS: BECLOMETHASONE QVAR 80 MDI IH SCH ×2 (08:22→21:08)
[2017-02-28] MEDS: ENOXAPARIN 40 MG/0.4 ML SYR SC SCH (09:17)
[2017-02-28] MEDS: METOPROLOL TARTRATE 25 MG TAB PO SCH ×2 (09:17→21:09)
[2017-02-28] MEDS: VENLAFAXINE XR 150 MG CAP PO SCH (09:18)
[2017-02-28] MEDS: predniSONE 10 MG TAB PO SCH (09:18)
[2017-02-28] MEDS: cefTRIAXone 2 GM in D5W 50 ML IV SCH (09:25)
--- NOTE | 2017-02-28 11:12 | PCMIDPN ---
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 Blood cx cleared 02/20. Veg 1.25cm long. Last night friend reports that patient continues to have episodes of aphasia --continue ceftriaxone 2gm IV daily 4-6 weeks 03/20/17 or 04/03/17, probably lean toward longer treatment BC size of veg --repeat MRI head today to evaluate if ongoing emboli strokes --if ongoing embolic strokes then will need repeat JONATHAN, discussed with cardiology --CT surgery consult --Check labs in AM # Diverticulitis Day 08/03 --3 more days flagyl (already on ceftriaxone for above), MAR adjusted microbiology 02/18 blood cx 11/22: S. constellatus TERRIE: Pen< 0.125 ceftriaxone 0.5 02/20 blood cx (2) negative time 35 min >50% time spent with care coordination with multiple teams including hospitalist, cardiology and CT surgery. Also education and counseling of patient with concerns of ongoing embolic CVAs Subjective: Feeling well no complaints No diarrhea or rash Objective: Vital Signs Temp Pulse Resp BP Pulse Ox 36.7 C 94 13 160/92 H 91 L 02/28/17 07:54 02/28/17 08:23 02/28/17 08:23 02/28/17 07:54 02/28/17 08:23 Laboratory Results 02/25/17 05:35 02/28/17 07:15 02/27/17 02/28/17 03/01/17 05:59 05:59 05:59 Intake Total 700 1650 Balance 700 1650 General Appearance: alert, no apparent distress EENT: No scleral icterus Respiratory: lungs clear Neck: supple Cardiac/Chest: irregularly irregular Abdomen: non-tender, soft Skin: pallor, No rash, no spider peripheral stigmata of endocarditis but limited exam due to painted nails Neuro/Psych: alert, normal mood/affect, oriented x 3 ICD10 Worksheet Patient Problems: Problems Problem Status Onset Encephalopathy acute Acute
[2017-02-28] MEDS ORDERED: GADOBUTROL 10 ML VIAL IVP ONE (11:47)
--- NOTE | 2017-02-28 12:58 | HOSPPROG ---
Hospitalist Progress Note Assessment/Plan: Patient is an 87 year old female with PMR on chronic steroids, depression, asthma, obesity who was brought to the ED with acute encephalopathy. She was admitted for further care. Today is my first encounter with the patient/chart reviewed. D/W Dr Acosta. 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 Blood cx cleared 02/20. Veg 1.25cm long. 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 No pain currently. No specific complaints. Objective: Vital Signs Temp Pulse Resp BP Pulse Ox 36.7 C 88 18 151/85 H 91 L 02/28/17 12:25 02/28/17 12:25 02/28/17 12:25 02/28/17 12:25 02/28/17 12:25 Laboratory Results 02/25/17 05:35 02/28/17 07:15 02/27/17 02/28/17 03/01/17 05:59 05:59 05:59 Intake Total 700 1650 240 Balance 700 1650 240 PT 17.8 SEC (12.0-15.0) H 02/19/17 05:10 INR 1.47 (0.83-1.16) H 02/19/17 05:10 - Physical Exam Constitutional: appears nourished, not in pain, obese Eyes: PERRL, anicteric sclera, EOMI Ears, Nose, Mouth, Throat: moist mucous membranes, hearing normal, ears appear normal Cardiovascular: No JVD, No tachycardia, No edema Respiratory: no respiratory distress, no rales or rhonchi, reduced air movement Gastrointestinal: No tenderness, No ascites, No guarding Skin: warm, normal color, No erythema Musculoskeletal: normal joint ROM, no joint effusions, generalized weakness Neurologic: AAOx3 Psychiatric: interacting appropriately, not anxious, not encephalopathic, thought process linear ICD10 Worksheet Patient Problems: Problems Problem Status Onset Encephalopathy acute Acute
[2017-03-01] MEDS: prednisoLONE ACET 1% 5 ML OPHT.BTL LEFTEYE SCH ×2 (05:49→12:57)
[2017-03-01] MEDS: metroNIDAZOLE 500 MG TAB PO SCH ×2 (05:49→12:57)
[2017-03-01 06:11] LABS: % IMMATURE GRANULYOCYTES 1.2 % (0.0-1.1); ABSOLUTE IMMATURE GRANULOCYTES 0.15 10^3/uL (0.00-0.10); ADD DIFF? NO; ADD MORPH? NO; ADD SCAN? NO; ATYPICAL LYMPHOCYTE FLAG 90 (0-99); FRAGMENT RBC FLAG 0 (0-99); HEMATOCRIT 37.7 % (38.0-47.0); LEFT SHIFT FLG 10 (0-99); LIPEMIA HEMOLYSIS FLAG 80 (0-99); MEAN CELL HEMOGLOBIN CONCENTR. 31.8 g/dL (32.4-36.7); MEAN CELL VOLUME 84.9 fL (81.5-99.8); PLATELET CLUMPS FLAG 0 (0-99); PLATELET COUNT 261 10^3/uL (150-400); RED BLOOD CELL COUNT 4.44 10^6/uL (4.18-5.33); RED CELL DISTRIBUTION WIDTH 16.2 % (11.5-15.2)
[2017-03-01 06:31] LABS: POTASSIUM 4.3 mEq/L (3.5-5.2)
[2017-03-01] MEDS: BECLOMETHASONE QVAR 80 MDI IH SCH (09:18)
[2017-03-01] MEDS: ENOXAPARIN 40 MG/0.4 ML SYR SC SCH (09:34)
[2017-03-01] MEDS: predniSONE 10 MG TAB PO SCH (09:34)
[2017-03-01] MEDS: cefTRIAXone 2 GM in D5W 50 ML IV SCH (09:34)
[2017-03-01] MEDS: VENLAFAXINE XR 150 MG CAP PO SCH (09:35)
[2017-03-01] MEDS: METOPROLOL TARTRATE 25 MG TAB PO SCH (09:35)
[2017-03-01 09:39] VITALS: BP 125/84
[2017-03-01 09:50] VITALS: PULSE 99; RESP 17; TEMP 98.2; O2SAT 97
--- NOTE | 2017-03-01 10:14 | PDIAF ---
- Diagnosis Diagnosis: CVA Code Status: Full Code - Medication Management Discharge Medications: Medications to Continue on Transfer Albuterol [Proventil Inhaler HFA (*)] 2 puffs IH Q4H PRN 02/19/17 [Last Taken Unknown] Beclomethasone Qvar 80 [Qvar 80 (*)] 2 puffs IH BID 02/19/17 [Last Taken Unknown ] Venlafaxine HCl [Venlafaxine HCl ER] 150 mg PO DAILY 02/19/17 [Last Taken Unknown] prednisoLONE ACET 1% [Pred Forte 1% (*)] 1 drops LEFTEYE QID 02/19/17 [Last Taken Unknown] Acetaminophen [Tylenol 325mg (*)] 650 mg PO Q4HRS PRN #0 tab 03/01/17 [Last Taken Unknown] Alteplase [Cathflo Activase 2 mg (*)] 2 mg IVP PRN PRN #0 vial 03/01/17 [Last Taken Unknown] Enoxaparin [Lovenox 40 MG (*)] 40 mg SC DAILY syr 03/01/17 [Last Taken Unknown] Metoprolol Tartrate [Lopressor 25 mg (*)] 12.5 mg PO BID tab 03/01/17 [Last Taken Unknown] cefTRIAXone [Rocephin] 2 gm IV DAILY vial 03/01/17 [Last Taken Unknown] metroNIDAZOLE [Flagyl 500 mg (*)] 500 mg PO Q8HRS tab 03/01/17 [Last Taken Unknown] predniSONE 10 mg PO DAILY tab 03/01/17 [Last Taken Unknown] [facility] Antibiotics: ceftriaxone 2gm IV Qday [employer] Antibiotic Stop Date: 04/03/17 Discharge Medications: Refer to the Discharge Home Medication list for PRN reason. PICC Care - Routine: Yes - Orders Services needed: Registered Nurse, Physical Therapy, Occupational Therapy Diet Texture: Regular Texture Diet, Thin Liquids, Meds Whole w/Liquids - Follow Up Care Current Providers and Referrals: Patient,NotPresent [Unknown] - As per Instructions Marques Emery DO [Doctor of Osteopathy] - follow up in 2 weeks (with repeat MRI ) Catherine Acosta MD [Medical Doctor] -
--- NOTE | 2017-03-01 12:59 | GDS ---
[f rep st] DISCHARGE SUMMARY DISCHARGE DIAGNOSES: 1. Streptococcus constellatus bacteremia with mitral valve endocarditis. 2. Diverticulitis. 3. Multiple embolic cerebrovascular accidents. 4. Atrial fibrillation. 5. Obstructive sleep apnea. 6. Reactive airway disease. CONSULTATIONS: 1. Dr. Tovar of Critical Care. 2. Neurology. 3. Infectious Disease. PHYSICAL EXAM: GENERAL: The patient is alert. VITAL SIGNS: Afebrile at 36.8. Pulse is 99. Resp iratory rate is 17. Blood pressure is 125/84. She is saturating 97% on room air. I have seen and evaluated the patient on the day of discharge. HOSPITAL COURSE: 1. The patient is an 87-year-old female who presented to the emergency room with complaints of acut e encephalopathy. She was evaluated and diagnosed with Streptococcus constellatus bacteremia with m itral valve endocarditis. During this hospitalization, she received multiple interventions, includi ng JONATHAN an MRI, to evaluate her condition. She has been treated with IV Rocephin 2 g daily and will continue this through 04/03/2017. A PICC line has been placed prior to disposition. 2. Diverticulitis. The patient will continue 2 more days of Flagyl treatment. 3. Multiple embolic CVAs. These are likely secondary to the patient's mitral valve. The patient h as been educated with recommendation for statin therapy. However, she is declining at this time and wishes to evaluate with her primary care physician. She has no residual affects from her multiple embolic strokes and will continue to require some strength and conditioning. Repeat MRI of the [facility] n shows no new stroke activity or enlargement. 4. History of atrial fibrillation. It is recommended that the patient receive anticoagulation ther apy in the future. She cannot be treated for the next 2 weeks after stroke activity given increased risk for hemorrhagic transformation. She has been educated with regard to this and will follow up with her primary care physician. 5. Obstructive sleep apnea. This is stable. 6. Polymyalgia rheumatica. The patient will continue prednisone. DISPOSITION: The patient will be discharged to [facility] for further rehabilitation and strengtheni . She will also continue IV antibiotic therapy. Rocephin is to be continued 2 g IV through 04/03. She will follow up in the outpatient setting with Infectious Disease as well as her primary care physician and Dr. Marques Emery. There are no pending studies. DISCHARGE MEDICATIONS: Please refer to EMR form. The patient is noted to be on Flagyl as well as R ocephin, which are new medications for her. I spent greater than 35 minutes in the care, coordination, and management of the patient's dispositi on. /[id number]/MODL
[2017-03-01 14:53] LABS: ALANINE AMINOTRANSFERASE 38 IU/L (9-52); ALBUMIN 3.4 g/dL (3.5-5.0); ALKALINE PHOSPHATASE 62 IU/L (38-126); ANION GAP 8 mEq/L (8-16); ASPARTATE AMINOTRANSFERASE 24 IU/L (14-46); BILIRUBIN,TOTAL 0.4 mg/dL (0.1-1.4); CALCIUM 10.6 mg/dL (8.5-10.4); CARBON DIOXIDE 30 mEq/l (22-31); CHLORIDE 99 mEq/L (97-110); CREATININE 0.8 mg/dL (0.6-1.0); GLOMERULAR FILTRATION RATE > 60; GLUCOSE 88 mg/dL (70-100); POTASSIUM 4.4 mEq/L (3.5-5.2); SODIUM 137 mEq/L (134-144); TOTAL PROTEIN 6.4 g/dL (6.3-8.2)
== END 2017-03-01 13:39 | DRG 288 ==
LOC: EDUNIT# → EDBD → F2N 02-19 00:05 → F3N 02-22 11:44
PROVIDERS: ADMIT Internal Medicine; ATTEND Family Medicine
PROC: B246ZZ4 Ultrasonography of Right and Left Heart, Transesophageal (ICD-10-PCS; principal; 2017-02-21)
PROC: 02HV33Z Insertion of Infusion Device into Superior Vena Cava, Percutaneous Approach (ICD-10-PCS; 2017-02-22)
DX: I33.0 Acute and subacute infective endocarditis (principal); B95.4 Other streptococcus as the cause of diseases classified elsewhere; I76 Septic arterial embolism; I63.49 Cerebral infarction due to embolism of other cerebral artery; R41.841 Cognitive communication deficit; R47.01 Aphasia; G93.41 Metabolic encephalopathy; I34.0 Nonrheumatic mitral (valve) insufficiency; I34.2 Nonrheumatic mitral (valve) stenosis; K57.32 Diverticulitis of large intestine without perforation or abscess without bleeding; I48.91 Unspecified atrial fibrillation; G47.33 Obstructive sleep apnea (adult) (pediatric); M35.3 Polymyalgia rheumatica; Z79.52 Long term (current) use of systemic steroids; E66.01 Morbid (severe) obesity due to excess calories; Z68.41 Body mass index [BMI] 40.0-44.9, adult; J45.909 Unspecified asthma, uncomplicated; K21.9 Gastro-esophageal reflux disease without esophagitis; H40.9 Unspecified glaucoma; F32.9 Major depressive disorder, single episode, unspecified; N28.89 Other specified disorders of kidney and ureter; Z87.891 Personal history of nicotine dependence
CPT/HCPCS: 92507-GN; 92523-GN; 92610-GN; 96374; 97116-GP; 97162-GP; 97165-GO; 97530-GO; 97535-GO; A9585; C1751; G8978-GP-CJ; G8979-GP-CI; J0133; J0295; J0696; J1650; J2250; J2543; J3010; J3370; J3475; Q9967

== ENCOUNTER 2017-07-14 11:45 | Emergency (ER) | payer OTHER ==
[2017-07-14 11:57] VITALS: TEMP 97.9; O2SAT 93
--- NOTE | 2017-07-14 12:08 | EDPHY ---
H & P Time Seen by Provider: 07/14/17 12:07 HPI/ROS: Chief complaint. Fall, head laceration HPI. 87-year-old female fell out of bed this morning and struck her head on the wooden night stand. She sustained a large laceration to the back of her head. She did not get knocked out. She does complain of some neck pain as well. She is on blood thinners for chronic atrial fibrillation. Otherwise she has no complaints of chest pain other back pain, trouble breathing, abdominal pain, injury to arms or legs. She does complain of a headache ROS Constitutional. no fever/chills, no weakness Eyes. no problems with vision ENT. no sore throat, no nasal drainage Cardiovascular. no chest pain Respiratory. no shortness of breath, no cough Abdominal. no abdominal pain, no nausea/vomiting, no diarrhea . no problems urinating MS. neck pain Skin. Scalp laceration Lymph. no swollen glands Neuro. Headache Past Medical/Surgical History: Polymyalgia rheumatica, asthma, GERD, glaucoma with corneal surgery, depression , hysterectomy. Mitral valve endocarditis, diverticulitis, CVA, atrial fibrillation, sleep apnea Social History: Single, nonsmoker, no alcohol Smoking Status: Former smoker Physical Exam: General Appearance: Alert well-developed female mild distress vital signs are stable Eyes:[ Pupils equal and round no pallor or injection]. ENT,[ Mouth: Mucous membranes are moist.] Respiratory: [There are no retractions, lungs are clear to auscultation.] Cardiovascular:[ Regular rate and rhythm.] Gastrointestinal: [ Abdomen is soft and nontender, no masses, bowel sounds normal.] Neurological: [Awake and alert, sensory and motor exams grossly normal.] Skin:[ Warm and dry, no rashes.] Musculoskeletal: [Neck is supple nontender.] Extremities [ symmetrical, full range of motion.] Psychiatric:[ Patient is oriented X 3, there is no agitation.] Constitutional: Initial Vital Signs Temperature (C) 36.6 C 07/14/17 11:55 Heart Rate 76 07/14/17 11:55 Respiratory Rate 17 07/14/17 11:55 Blood Pressure 136/73 H 07/14/17 11:55 O2 Sat (%) 93 07/14/17 11:55 O2 Delivery Mode Room Air Allergies/Adverse Reactions: No Known Allergies Allergy (Verified 07/14/17 11:55) Home Medications: Medication Instructions Recorded Albuterol [Proventil Inhaler HFA 2 puffs IH Q4H PRN 02/19/17 (*)] Beclomethasone Qvar 80 [Qvar 80 2 puffs IH BID 02/19/17 (*)] Venlafaxine HCl [Venlafaxine HCl 150 mg PO DAILY 02/19/17 ER] prednisoLONE ACET 1% [Pred Forte 1 drops LEFTEYE QID 02/19/17 1% (*)] Acetaminophen [Tylenol 325mg (*)] 650 mg PO Q4HRS PRN #0 tab 03/01/17 Alteplase [Cathflo Activase 2 mg 2 mg IVP PRN PRN #0 vial 03/01/17 (*)] Enoxaparin [Lovenox 40 MG (*)] 40 mg SC DAILY syr 03/01/17 Metoprolol Tartrate [Lopressor 25 12.5 mg PO BID tab 03/01/17 mg (*)] cefTRIAXone [Rocephin] 2 gm IV DAILY vial 03/01/17 metroNIDAZOLE [Flagyl 500 mg (*)] 500 mg PO Q8HRS tab 03/01/17 predniSONE 10 mg PO DAILY tab 03/01/17 Medical Decision Making - Diagnostics Imaging Results: Imaging Impressions Cervical Spine CT 07/14/17 12:27 Impression: 1. Elderly brain with atrophy and probable white matter small vessel disease. 2. Negative for intracranial hemorrhage. 3. See above report for additional findings. CT Cervical Spine Without Contrast History: Trauma. Technique: Multislice helical CT through the cervical spine without contrast from the skull base to T1. Soft tissue and bone evaluation is performed. Sagittal and coronal reconstructions are obtained and reviewed. Dose reduction techniques were utilized. Findings: There is mild straightening of the normal cervical curvature. There is a minimal anterolisthesis of C5 with respect to C6, presumably on the basis of bony hypertrophic changes No fracture or dislocation is identified. The relationship between skull base and C1 is normal. Degenerative changes are noted involving the C1-C2 articulation. The odontoid process is normal. The cervical thoracic junction is normal. Soft tissue window evaluation does not show evidence of epidural or prevertebral hematoma. Prominent multilevel degenerative changes are noted with disk space loss vertebral body spurring and prominent facet and uncovertebral arthropathy extending from C2-C3 to the C6-C7 level. Associated multilevel neural foraminal impingement is noted. Impression: 1. Negative for fracture. 2. Multilevel degenerative changes as detailed above. Results called and discussed with Dr. RENATO VILLEGAS on 07/14/2017 at 14:[address] 07/14/17 12:27 Impression: 1. Elderly brain with atrophy and probable white matter small vessel disease. 2. Negative for intracranial hemorrhage. 3. See above report for additional findings. CT Cervical Spine Without Contrast History: Trauma. Technique: Multislice helical CT through the cervical spine without contrast from the skull base to T1. Soft tissue and bone evaluation is performed. Sagittal and coronal reconstructions are obtained and reviewed. Dose reduction techniques were utilized. Findings: There is mild straightening of the normal cervical curvature. There is a minimal anterolisthesis of C5 with respect to C6, presumably on the basis of bony hypertrophic changes No fracture or dislocation is identified. The relationship between skull base and C1 is normal. Degenerative changes are noted involving the C1-C2 articulation. The odontoid process is normal. The cervical thoracic junction is normal. Soft tissue window evaluation does not show evidence of epidural or prevertebral hematoma. Prominent multilevel degenerative changes are noted with disk space loss vertebral body spurring and prominent facet and uncovertebral arthropathy extending from C2-C3 to the C6-C7 level. Associated multilevel neural foraminal impingement is noted. Impression: 1. Negative for fracture. 2. Multilevel degenerative changes as detailed above. Results called and discussed with Dr. RENATO VILLEGAS on 07/14/2017 at 14:18 CT head without contrast is negative for intracranial hemorrhage or skull fracture CT cervical spine significant for significant DJD but no evidence of fracture dislocation These are reviewed by me and discussed with Dr. Block Procedures: Procedure: Laceration repair. Verbal consent was obtained from the patient. The 1.5 cm laceration on the right forehead was anesthetized using 1% lidocaine with epi The wound was scrubbed, draped and explored to its base with a gloved finger. There were no deep structures involved or any evidence of foreign body. No tendon injury was identified. The wound was repaired with four 6-0 Prolene sutures. The wound repair was simple. The procedure was performed by myself. ED Course/Re-evaluation: After extensive cleaning of the patient's posterior scalp that had large amounts of blood congealed in the hair and I was concerned about a posterior scalp laceration I do not find any evidence of laceration other than the laceration to her right forehead. Re-evaluation 2:30 p.m.--patient remained stable. She and I discussed imaging study results, treatment plan including criteria for return importance of follow -up further evaluation. She expresses understanding and agreement Differential Diagnosis: I considered intracranial bleeding as the patient has head injury and is on blood thinners for chronic atrial fibrillation. I considered cervical spine injury as the patient has neck pain after fall. There is no evidence for intracranial bleeding or cervical spine injury. She has a laceration to the right forehead. I thought the patient also with have a large scalp laceration posteriorly but by exam she does not Departure - Departure Disposition: Home, Routine, Self-Care Clinical Impression: Forehead laceration Qualifiers: Encounter type: initial encounter Qualified Code(s): S01.81XA - Laceration without foreign body of other part of head, initial encounter Condition: Good Instructions: Care For Your Stitches (ED) Additional Instructions: Ice to sore area on the right forehead off and on next 24 hours. May use Tylenol for headache or discomfort. You may shower and wash your hair with your stitches in. Return for signs of infection. Stitches out 5 days Referrals: Patient,NotPresent [Primary Care Provider] - As per Instructions
[2017-07-14 14:47] VITALS: BP 124/86; PULSE 78; RESP 16
== END 2017-07-14 14:45 | disposition home or self-care (01) ==
LOC: EDUNIT#
PROC: 0HQ1XZZ Repair Face Skin, External Approach (ICD-10-PCS; principal; 2017-07-14)
DX: S01.81XA Laceration without foreign body of other part of head, initial encounter (principal); J45.909 Unspecified asthma, uncomplicated; Z86.73 Personal history of transient ischemic attack (TIA), and cerebral infarction without residual deficits; Z87.891 Personal history of nicotine dependence; W06.XXXA Fall from bed, initial encounter

== ENCOUNTER 2017-07-30 02:06 | Inpatient (IN) | payer OTHER ==
[2017-07-30] MEDS ORDERED: NS 1,000 ML IV ONE (02:11)
--- NOTE | 2017-07-30 02:13 | EDPHY ---
H & P HPI/ROS: HPI CHIEF COMPLAINT: Diarrhea, generalized weakness, 2 falls today. HISTORY OF PRESENT ILLNESS: Patient is a 87-year-old female she has a history of Streptococcus bacteremia mitral valve endocarditis, diverticulitis, acute stroke, NAVNEET, AFib on blood thinners, presents emergency room diarrhea worsening over the past 24-48 hours with generalized weakness. Additionally reports 2 falls today. She denies any significant pain anywhere get her hips bilaterally. Denies severe abdominal pain. She does endorse 1 episode of vomiting. No chest pain or shortness of breath. Patient reports to me that her legs feel very weak when she goes to walk. Globally she feels weak. She states her diarrhea got worse over the last 24 hours. No fever. She states she was diagnosed with C diff 8 weeks ago. She was initially on Flagyl but then was switched by her primary care doctor to p.o. vancomycin. She has completed that. Last dose yesterday. She states. Denies bloody stools. Past Medical History: Multiple chronic medical problems Streptococcus bacteremia, mitral valve endocarditis, diverticulitis, history of stroke, NAVNEET, AFib polymyalgia rheumatica Past Surgical History: No recent surgery Social History: Denies daily use drugs alcohol tobacco products. Family History: Noncontributory ROS REVIEW OF SYSTEMS: A comprehensive 10 point review of systems is otherwise negative aside from elements mentioned in the history of present illness. Exam Constitutional appears nontoxic triage nursing summary reviewed, vital signs reviewed, awake/alert. Eyes normal conjunctivae and sclera, EOMI, PERRLA. HENT normal inspection, atraumatic, dry mucous membranes, no epistaxis, neck supple/ no meningismus, no raccoon eyes. Respiratory clear to auscultation bilaterally, normal breath sounds, no respiratory distress, no wheezing. Cardiovascular rate normal, regular rhythm, no murmur, no edema, distal pulses normal. Gastrointestinal soft, non-tender, no rebound, no guarding, normal bowel sounds, no distension, no pulsatile mass. Genitourinary no CVA tenderness. Musculoskeletal no midline vertebral tenderness, full range of motion, no calf swelling, no tenderness of extremities, no meningismus, good pulses, neurovascularly intact. Skin pink, warm, & dry, no rash, skin atraumatic. Neurologic awake, alert and oriented x 3, AAOx3, moves all 4 extremities equally, motor intact, sensory intact, CN II-XII intact, normal cerebellar, normal vision, normal speech. Psychiatric normal mood/affect. Heme/Lymph/Immune no lymphadenopathy. Differential Diagnosis: Includes but is not limited to in a particular order acute diarrheal illness, C diff colitis, diverticulitis, electrolyte disturbance , dehydration, hyponatremia, hypokalemia, UTI Medical Decision Making: Plan for this patient IV establishment with IV fluid bolus, 1 L normal saline, check stool studies, EKG, troponin, electrolytes, urinalysis. Re-evaluation: EKG interpretation by me on record in [facility] system. Impression time of EKG 2:35 a.m., this is AFib rate of 82. No acute ischemic change appreciated. Q -waves down the anterior leads V1 V2 V3. Similar to previous EKG dated 02/21/2017 CT scan of the abd/pelvis The results of the study are chronic diverticulitis. The study was read by Dr. Griggs. I viewed the images myself on the PACS system. CT scan does not show diffuse colitis there is an area of chronic diverticulitis versus colitis on CT. No free air no free fluid. Patient's blood work has been reviewed shows hyponatremia hypokalemia this setting of diarrhea. Also she appears dehydrated. She will be admitted for these electrolyte abnormalities dehydration ongoing diarrhea most likely C diff. I have ordered her p.o. Vanco. Admit to the hospitalist service. 0408: Spoke with the hospitalist service she agrees to admit this patient for generalized weakness electrolyte disturbance and ongoing diarrhea. P. o. vancomycin has been given in case C diff. IV fluids and IV potassium. Reason for admission generalized weakness, hypokalemia, hyponatremia, diarrhea with high suspicion for C diff. Source: Patient, EMS - Medical/Surgical History Other PMH: unable to get - Social History Smoking Status: Former smoker Constitutional: Initial Vital Signs Temperature (C) 36.7 C 07/30/17 02:18 Heart Rate 77 07/30/17 02:18 Respiratory Rate 18 07/30/17 02:18 Blood Pressure 117/92 H 07/30/17 02:18 O2 Sat (%) 95 07/30/17 02:18 O2 Delivery Mode Room Air O2 (L/minute) 2 Allergies/Adverse Reactions: No Known Allergies Allergy (Verified 07/30/17 02:26) Home Medications: Medication Instructions Recorded Cholecalciferol Vit D3 [Vitamin D3 1,000 units PO DAILY 07/30/17 (*)] Digoxin [Lanoxin 125 mcg (RX)] 125 mcg PO DAILY 07/30/17 Diltiazem HCl [Cartia XT 180mg] 180 mg PO BID 07/30/17 Furosemide [Lasix 20 MG (*)] 20 mg PO BID 07/30/17 Herbals/Supplements -Info Only 1 ea PO DAILY 07/30/17 Potassium Cl [Klor-Con] 10 meq PO DAILY18 07/30/17 Venlafaxine Xr [Effexor Xr 75MG 150 mg PO DAILY 07/30/17 (*)] Warfarin Sodium [Coumadin 3MG (*)] 3 mg PO SUTUTH@21 07/30/17 Warfarin Sodium [Coumadin 4MG (*)] 4 mg PO MOWEFRSA@21 07/30/17 Medical Decision Making - Diagnostics Imaging Results: Imaging Impressions Abdomen CT 07/30/17 02:16 Impression: 1. Moderate thickening associated with the [place] diverticulum mid sigmoid colon with surrounding inflammation similar to the prior study. This inflamed diverticulum is atypical for usual diverticulitis. Rule out chronic inflammation or infectious process. Consider sigmoidoscopy at some point for direct visualization. 2. No CT evidence of appendicitis, abscess or bowel obstruction. 3. Stable hypodense lesion upper pole left kidney that could represent complex cyst versus hypodense mass. Consider further characterization with ultrasound as clinically directed. The study was performed as an emergency on-call case and discussed by telephone with Dr. Gt Leslie at 0400 hrs. The final interpretation is concordant with the original communication. - Data Points Laboratory Results: Laboratory Results 07/30/17 02:34 07/30/17 02:34 Medications Given: Hydrocodone Bitart/Acetaminophen (Warrior 5/325) 1 - 2 tab PO Q4HRS PRN PRN Reason: Pain, Moderate Able to Take PO Stop: 08/09/17 04:36 Last Admin: 07/30/17 11:36 Dose: 1 tab Digoxin (Lanoxin) 125 mcg PO DAILY YOSELIN Stop: 01/26/18 11:14 Last Admin: 07/30/17 11:36 Dose: 125 mcg Furosemide (Lasix) 20 mg PO BID YOSELIN Stop: 01/26/18 11:14 Last Admin: 07/30/17 11:37 Dose: 20 mg Potassium Chloride/Sodium Chloride (Ns W/ 20 Kcl/L) 1,000 mls @ 100 mls/hr IV CONT YOSELIN Stop: 01/26/18 04:44 Last Admin: 07/30/17 11:55 Dose: 1,000 mls Metronidazole/Sodium Chloride (Flagyl 500 Mg (Premix)) 100 mls @ 100 mls/hr IV Q8H YOSELIN Stop: 08/29/17 16:44 Last Admin: 07/30/17 17:26 Dose: 100 mls Miscellaneous Medication (Diltiazem Hcl [Cartia Xt 180mg]) 180 mg PO BID YOSELIN Stop: 01/26/18 11:14 Last Admin: 07/30/17 12:30 Dose: Not Given Discontinued Medications Sodium Chloride (Ns) 1,000 mls @ 0 mls/hr IV EDNOW ONE; Wide Open PRN Reason: Protocol Stop: 07/30/17 02:12 Last Admin: 07/30/17 02:38 Dose: 1,000 mls Potassium Chloride (Potassium Cl 10 Meq (Premix)) 100 mls @ 100 mls/hr IV EDNOW ONE Stop: 07/30/17 04:16 Last Admin: 07/30/17 03:39 Dose: 100 mls Magnesium Sulfate (Magnesium Sulf 2 Gm (Premix)) 50 mls @ 50 mls/hr IV ONCE ONE Stop: 07/30/17 09:33 Last Admin: 07/30/17 08:35 Dose: 50 mls Potassium Chloride (Klor-Con) 10 - 40 meq PO ONCE ONE PRN Reason: Protocol Stop: 07/30/17 11:14 Last Admin: 07/30/17 11:37 Dose: 40 meq Vancomycin HCl (Vancocin Oral Liquid) 250 mg PO ONCE ONE PRN Reason: Protocol Stop: 07/30/17 04:01 Last Admin: 07/30/17 04:23 Dose: 250 mg Vancomycin HCl (Vancocin Oral Liquid) 250 mg PO QID YOSELIN PRN Reason: Protocol Stop: 08/29/17 09:59 Last Admin: 07/30/17 16:35 Dose: 250 mg Departure - Departure Disposition: [facility] Acute Clinical Impression: Dehydration, Hyponatremia, Hypokalemia Diarrhea Qualifiers: Diarrhea type: infectious Qualified Code(s): A09 - Infectious gastroenteritis and colitis, unspecified Condition: Fair
--- NOTE | 2017-07-30 02:37 | CPEKG ---
Heart Rate: 82 RR Interval: 732 QRSD Interval: 92 QT Interval: 332 QTC Interval: 388 QRS Center: -14 T Wave Center: 178 EKG Severity - ABNORMAL ECG - EKG Impression: ATRIAL FIBRILLATION Electronically Signed By: Na Moses 01-Aug-2017 05:33:31
[2017-07-30 02:47] LABS: % IMMATURE GRANULYOCYTES 0.9 % (0.0-1.1); ABSOLUTE IMMATURE GRANULOCYTES 0.16 10^3/uL (0.00-0.10); ADD DIFF? NO; ADD MORPH? NO; ADD SCAN? NO; ATYPICAL LYMPHOCYTE FLAG 0 (0-99); FRAGMENT RBC FLAG 20 (0-99); HEMATOCRIT 37.2 % (38.0-47.0); HEMOGLOBIN 12.6 g/dL (12.6-16.3); LEFT SHIFT FLG 10 (0-99); LIPEMIA HEMOLYSIS FLAG 90 (0-99); MEAN CELL HEMOGLOBIN 27.3 pg (27.9-34.1); MEAN CELL HEMOGLOBIN CONCENTR. 33.9 g/dL (32.4-36.7); MEAN CELL VOLUME 80.5 fL (81.5-99.8); MEAN PLATELET VOLUME 12.2 fL (8.7-11.7); PLATELET CLUMPS FLAG 20 (0-99); PLATELET COUNT 283 10^3/uL (150-400); RED BLOOD CELL COUNT 4.62 10^6/uL (4.18-5.33); RED CELL DISTRIBUTION WIDTH 17.1 % (11.5-15.2)
[2017-07-30 02:57] LABS: INR 2.92 (0.83-1.16); PROTIME(PATIENT) 30.9 SEC (12.0-15.0)
[2017-07-30 02:58] LABS: APTT 46.4 SEC (23.0-38.0)
[2017-07-30 02:59] LABS: ALANINE AMINOTRANSFERASE 30 IU/L (9-52); ALBUMIN 3.7 g/dL (3.5-5.0); ALKALINE PHOSPHATASE 88 IU/L (38-126); ANION GAP 13 mEq/L (8-16); ASPARTATE AMINOTRANSFERASE 16 IU/L (14-46); BILIRUBIN,TOTAL 0.9 mg/dL (0.1-1.4); BILIRUBIN-CONJUGATED 0.4 mg/dL (0.0-0.5); BILIRUBIN-UNCONJUGATED 0.5 mg/dL (0.0-1.1); CALCIUM 9.8 mg/dL (8.5-10.4); CARBON DIOXIDE 29 mEq/l (22-31); CHLORIDE 89 mEq/L (97-110); CREATININE 0.9 mg/dL (0.6-1.0); GLOMERULAR FILTRATION RATE 60; GLUCOSE 122 mg/dL (70-100); POTASSIUM 2.9 mEq/L (3.5-5.2); SODIUM 131 mEq/L (134-144); TOTAL PROTEIN 6.5 g/dL (6.3-8.2)
[2017-07-30] MEDS ORDERED: IOPAMIDOL (ISOVUE-300) 100 ML BTL ONE (03:05)
[2017-07-30 03:11] LABS: TROPONIN I 0.047 ng/mL (0.000-0.034)
[2017-07-30] MEDS ORDERED: POTASSIUM Cl (KCl) 100 ML IV ONE (03:17)
[2017-07-30] MEDS ORDERED: VANCOMYCIN 125 MG/2.5 ML UDL PO ONE (04:00)
[2017-07-30] MEDS ORDERED: ACETAMINOPHEN 325 MG TAB PO PRN (04:37)
[2017-07-30] MEDS ORDERED: HYDROCODONE/APAP 5/325 TAB PO PRN (04:37)
[2017-07-30] MEDS ORDERED: ONDANSETRON 4 MG/2 ML VIAL IVP PRN (04:37)
[2017-07-30] MEDS ORDERED: HYDROmorphONE/DILAUDID 1 MG/ML INJ IVP PRN (04:37)
[2017-07-30] MEDS ORDERED: PROTOCOL K PHOSPHATE 1 DOSE IV PRN (04:42)
[2017-07-30] MEDS ORDERED: PROTOCOL MAGNESIUM 1 DOSE IV PRN (04:42)
[2017-07-30] MEDS ORDERED: PROTOCOL POTASSIUM 1 DOSE MISC PRN (04:42)
[2017-07-30 06:55] LABS: ANION GAP 12 mEq/L (8-16); CALCIUM 9.6 mg/dL (8.5-10.4); CARBON DIOXIDE 27 mEq/l (22-31); CHLORIDE 91 mEq/L (97-110); CREATININE 0.8 mg/dL (0.6-1.0); DIGOXIN 0.8 ng/mL (0.8-2.0); GLOMERULAR FILTRATION RATE > 60; GLUCOSE 126 mg/dL (70-100); MAGNESIUM 1.3 mg/dL (1.6-2.3); POTASSIUM 2.9 mEq/L (3.5-5.2); SODIUM 130 mEq/L (134-144)
[2017-07-30 07:04] LABS: TROPONIN I 0.049 ng/mL (0.000-0.034)
--- NOTE | 2017-07-30 07:06 | PDGENHP ---
History and Physical - Chief Complaint diarrhea, weakness, fall - History of Present Illness Source - patient at time of my interview is slightly confused. Case discussed with ED provider however he notes she was not confused initially on arrival. Previous hospital notes would indicate patient normally AAOx4. EMR reviewed from hospital stay 02/2017 HPI - Pleasant 87 yo F with pmhx significant for atrial fibrillation on chronic anticoagulation with coumadin, hx of Strep bacteremia and endocarditis 02/2017. 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 Patient c/o felling very weak and having multiple episodes of diarrhea. She was diagnosed with C diff several weeks ago and was initially started on course of flagyl. She continued to have symptoms and subsequently transitioned to PO vanco. Patient states she has been having some chills but no fever. she denies any abdominal pain or bloody diarrhea. Patient with decreased appetite but continued on her home medications including lasix, digoxin, coumadin. Patient denies any chest pain/ palpitations/SOB/cough. She denies any nausea/vomiting. When patient arrived to the ED via EMS her night gown was covered in fould smelling diarrhea stool however she was not confused initially. Patient current Medication list (as per copy from home) Vitamin D daily. Digoxin 125 mcg daily dilt 180 mg bid lasix 20mg bid kcl 10 meq daily tumeric daily venlafaxine 150mg daily. probiotic daily coumadin 2mg MWFSat, 3mg SunTueThurs. History Information - Allergies/Home Medication List Allergies/Adverse Reactions: No Known Allergies Allergy (Verified 07/30/17 02:26) Home Medications: Albuterol [Proventil Inhaler HFA (*)] 2 puffs IH Q4H PRN 02/19/17 [Last Taken Unknown] Beclomethasone Qvar 80 [Qvar 80 (*)] 2 puffs IH BID 02/19/17 [Last Taken Unknown ] Venlafaxine HCl [Venlafaxine HCl ER] 150 mg PO DAILY 02/19/17 [Last Taken Unknown] prednisoLONE ACET 1% [Pred Forte 1% (*)] 1 drops LEFTEYE QID 02/19/17 [Last Taken Unknown] I have personally reviewed and updated: family history, medical history, social history - Past Medical History atrial fibrillation, asthma, CVA (embolic without sequelae.), GERD, glaucoma, hearing deficit Additional medical history: polymyalgia rheumatica, on daily prednisone. mild persistent asthma. morbid obesity. glaucoma. depression. falls. hx Strep Constellatus bacteremia/endocarditis 02/2017. Navneet. 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 chronic anticoagulation with coumadin. diverticulitis. chronic afib - Surgical History Reports: hysterectomy Additional surgical history: corneal surgery, cataract. hysterectomy - Family History Positive for: non-pertinent Additional family history: Patient cannot remember but reports no living relatives. (07/30/17) - Social History Smoking Status: Former smoker (40 pack year history. quit many years ago.) Alcohol Use: None Drug Use: None Additional social history: Lives alone in independent living facility. CODE - patient does not want any cardiac but okay with intubation if needed. Her friend Darby Stock is MDPOA. Review of Systems Review of Systems: ROS: 10pt was reviewed & negative except for what was stated in HPI & below Constitutional: Reports: chills, malaise, weakness. Denies: fever EENMT: Reports: other (chronic rhinorrhea. ). Denies: blurred vision, sore throat Cardiac: Reports: no symptoms. Denies: chest pain, edema, lightheadedness, palpitations Respiratory: Reports: no symptoms. Denies: cough, shortness of breath Gastrointestinal: Reports: diarrhea. Denies: vomitting, abdominal pain, nausea Genitourinary: Denies: no symptoms, dysuria, hematuria Muscolosketal: Reports: back pain, muscle pain, other Skin: Reports: no symptoms, rash Neurological: Reports: weakness (generalized. no focal c/o.). Denies: anxiety, depressed Hematologic/Lymphatic: Denies: blood clots Immunologic/Allergy: Denies: no symptoms Physical Exam Physical Exam: Temp Pulse Resp BP Pulse Ox 36.7 C 84 16 133/63 H 94 07/30/17 02:18 07/30/17 06:00 07/30/17 06:00 07/30/17 06:00 07/30/17 06:00 Constitutional: no apparent distress, appears nourished, chronically ill appearing, obese Eyes: PERRL, anicteric sclera, EOMI Ears, Nose, Mouth, Throat: dry mucous membranes, hard of hearing, No poor dentition (dentures in place) Cardiovascular: regular rate and rhythym, No systolic murmur, No edema Peripheral Pulses: 1+: dorsalis-pedis (R), dorsalis-pedis (L) Respiratory: no respiratory distress, no rales or rhonchi, clear to auscultation Gastrointestinal: normoactive bowel sounds, soft, non-tender abdomen, other, No distension (soft obese abdomen. NTTP. ) Genitourinary: No no bladder fullness, No no bladder tenderness Skin: warm, normal color, No rash Musculoskeletal: no muscle tenderness, generalized weakness, No full muscle strength, No joint tenderness, No muscular tenderness Neurologic: weakness, other (CN grossly intact. ), No AAOx3, No numbness Psychiatric: not anxious, flat affect, poor memory, No not encephalopathic, No anxious, No depressed, No poor insight Lymph, Heme, Immunologic: No lymphadenopathy Lab Data & Imaging Review 07/30/17 02:34 07/30/17 06:37 WBC 17.27 10^3/uL (3.80-9.50) H 07/30/17 02:34 RBC 4.62 10^6/uL (4.18-5.33) 07/30/17 02:34 Hgb 12.6 g/dL (12.6-16.3) 07/30/17 02:34 Hct 37.2 % (38.0-47.0) L 07/30/17 02:34 MCV 80.5 fL (81.5-99.8) L 07/30/17 02:34 MCH 27.3 pg (27.9-34.1) L 07/30/17 02:34 MCHC 33.9 g/dL (32.4-36.7) 07/30/17 02:34 RDW 17.1 % (11.5-15.2) H 07/30/17 02:34 Plt Count 283 10^3/uL (150-400) 07/30/17 02:34 MPV 12.2 fL (8.7-11.7) H 07/30/17 02:34 Neut % (Auto) 84.3 % (39.3-74.2) H 07/30/17 02:34 Lymph % (Auto) 6.8 % (15.0-45.0) L 07/30/17 02:34 Kane % (Auto) 7.2 % (4.5-13.0) 07/30/17 02:34 Eos % (Auto) 0.5 % (0.6-7.6) L 07/30/17 02:34 Baso % (Auto) 0.3 % (0.3-1.7) 07/30/17 02:34 Nucleat RBC Rel Count 0.0 % (0.0-0.2) 07/30/17 02:34 Absolute Neuts (auto) 14.53 10^3/uL (1.70-6.50) H 07/30/17 02:34 Absolute Lymphs (auto) 1.18 10^3/uL (1.00-3.00) 07/30/17 02:34 Absolute Monos (auto) 1.25 10^3/uL (0.30-0.80) H 07/30/17 02:34 Absolute Eos (auto) 0.09 10^3/uL (0.03-0.40) 07/30/17 02:34 Absolute Basos (auto) 0.06 10^3/uL (0.02-0.10) 07/30/17 02:34 Absolute Nucleated RBC 0.00 10^3/uL (0-0.01) 07/30/17 02:34 Immature Gran % 0.9 % (0.0-1.1) 07/30/17 02:34 Immature Gran # 0.16 10^3/uL (0.00-0.10) H 07/30/17 02:34 PT 30.9 SEC (12.0-15.0) H 07/30/17 02:34 INR 2.92 (0.83-1.16) H 07/30/17 02:34 APTT 46.4 SEC (23.0-38.0) H 07/30/17 02:34 VBG Lactic Acid 1.6 mmol/L (0.7-2.1) 07/30/17 02:34 Sodium 130 mEq/L (134-144) L 07/30/17 06:28 Potassium 2.9 mEq/L (3.5-5.2) L 07/30/17 06:28 Chloride 91 mEq/L (97-110) L 07/30/17 06:28 Carbon Dioxide 27 mEq/l (22-31) 07/30/17 06:28 Anion Gap 12 mEq/L (8-16) 07/30/17 06:28 BUN 12 mg/dL (7-23) 07/30/17 06:28 Creatinine 0.8 mg/dL (0.6-1.0) 07/30/17 06:28 Estimated GFR > 60 07/30/17 06:28 Glucose 126 mg/dL (70-100) H 07/30/17 06:28 Calcium 9.6 mg/dL (8.5-10.4) 07/30/17 06:28 Phosphorus 2.8 mg/dL (2.5-4.5) 07/30/17 06:28 Magnesium 1.3 mg/dL (1.6-2.3) L 07/30/17 06:28 Total Bilirubin 0.9 mg/dL (0.1-1.4) 07/30/17 02:34 Conjugated Bilirubin 0.4 mg/dL (0.0-0.5) 07/30/17 02:34 Unconjugated Bilirubin 0.5 mg/dL (0.0-1.1) 07/30/17 02:34 AST 16 IU/L (14-46) 07/30/17 02:34 ALT 30 IU/L (9-52) 07/30/17 02:34 Alkaline Phosphatase 88 IU/L (38-126) 07/30/17 02:34 Creatine Kinase 40 IU/L (0-156) 07/30/17 06:28 Troponin I 0.047 ng/mL (0.000-0.034) H 07/30/17 02:34 Total Protein 6.5 g/dL (6.3-8.2) 07/30/17 02:34 Albumin 3.7 g/dL (3.5-5.0) 07/30/17 02:34 Lipase 41 IU/L (23-300) 07/30/17 02:34 Digoxin 0.8 ng/mL (0.8-2.0) 07/30/17 06:28 Interpretation: verbal report on CT abd/pelvis - nothing acute. chronic appearing diverticulits. no perforation. EKG additional interpertation: Atrial fibrillation. rate controlled 80s. q waves inferior leads. sl ST depression lateral leads. [id number]. Assessment & Plan Assessment: Dehydration (Acute) Diarrhea (Acute) Hypokalemia (Acute) Hyponatremia (Acute) Pleasant 87 yo F with multiple medical issues who presents to ED today via EMS with c/o uncontrolled diarrhea and falls at home. 1. c diff diarrhea - repeat stool testing pending however patient s/p flagyl and vanco po. pt with leukocytosis but no SIRS criteria. awaiting stool studies. ID consult for recs as patient completed course vanco 2. confusion - likely metabolic encephalopathy in setting of infection, dehydration. less likely CVA. pt anticoagulated on coumadin and therapeutic. acute change since pt evaluated by ED provider. will check digoxin level and CT head 2/2 hx falls on coumadin. 3. fall - PT/OT mobilize. 4. dehydration - IVF advance diet as tolerated. 5. hypokalemia - replacement protocol in place. 6. hyponatremia - 2/2 hypovolemia less likely due to diuresis based on history. IVF replacement. 7. hypochloridemia - in setting of hyponatremia. IVF replacement as above. 8. elevated troponin - minimally elevated. pt without c/o chest pain. nonspecific ekg changes lateral leads slight ST depression. will trend. low suspicion for ACS could be some demand. 9. leukocytosis - pt without SIRS criteria. continue PO vanco. blood cultures pending. awaiting UA. ID consultation. pt with history of Strep bacteremia/ endocarditis in February 2017 s/p appropriate antibiotic therapy. 10. Atiral fib - rate controlled. check digoxin level. therapeutic on INR. 11. chronic anticoagulation - continue coumadin INR goal 2.0-3.0 for atrial fib. 12. hx emoblic CVA without anticoagulation 13. NAVNEET - O2 supplementation at this time. 14. polymyalgia Rheumatica - prednisone not listed on patient home medications sheet but will need to verify. Pt BPs acceptable and lower concern for adrenal suppression at this time but will need to verify. 15. hyperglycemia - mild. permissive hyperglycemia in this frail elderly lady without hx DM II. no insulin at this time 16. hypomagnesemia - replacement protocol in place. FEN - IVF. electrolyte replacement as above. advance diet as tolerated. PPX -SCDs. anticoagulated with coumdin. COR - patient without living relatives. She has assigned friend Darby Stock to act as proxy. Patient is clear regarding resuscitation. Patient does not want Cardiac resuscitation at all but amenable to intubation.
[2017-07-30] MEDS ORDERED: MAGNESIUM SULF 2 GM/WATER 50 ML BAG IV ONE (08:15)
[2017-07-30] MEDS ORDERED: MAGNESIUM SULF 2 GM/WATER 50 ML IV ONE (08:34)
--- NOTE | 2017-07-30 10:57 | PDMN ---
Medical Necessity Medical necessity: M170 gastroenteritis- C.diff with leukocytosis, confusion, falls, hyponatremia, kypokalemia, hypochloridemia , diarrhea, dehydration, recent C. Diff with abMD herlinda anticipates > 2 midnights ongoing med nec care
[2017-07-30] MEDS ORDERED: POTASSIUM CL 10 MEQ TAB PO ONE ×2 (11:13→21:47)
[2017-07-30] MEDS: DIGOXIN 125 MCG TAB PO SCH (11:36)
[2017-07-30] MEDS: FUROSEMIDE 20 MG TAB PO SCH ×2 (11:37→20:06)
[2017-07-30] MEDS: VANCOMYCIN 125 MG/2.5 ML UDL PO SCH ×4 (11:37→20:06)
[2017-07-30] MEDS: NS W/ 20 KCl/L 1,000 ML IV SCH ×2 (11:55→23:14)
[2017-07-30] MEDS: Diltiazem Hcl [Cartia Xt 180mg] 180 MG PO SCH ×2 (12:30→21:56)
--- NOTE | 2017-07-30 16:38 | ASMTCASEMG ---
Living Arrangements What is your living Answers: Alone arrangement? Who do you live with? Type Of Residence What kind of residence do Answers: House you live in? Discharge Plan Comments Coordination Status Comments Notes: Chart reviewed and spoke w/ STEVE Newberry. Pt is a 87 y/o female admitted w/ diarrhea and weakness after a fall. CM spoke w/ her friend, Neha Saleem, NI at length about her hx. She reports that pt does a good job of convincing people that she is okay when she is unable to care for herself. Pt receives a couple hour of non skilled HC. Pt has been feeling more depressed since nov 2016. Pt is currently taking wellbutrin 75mg twice in the AM. Neha reports Nov is when pt had her first fall and she was found almost "out cold". CM awaiting OT/PT recommendations. Neha would like pt to go to a SNF and does not think pt can go home safely. Pt is being followed by Elva Rodríguez# [phone], a case management assistant through her PCP's office. CM attempted to call case management assistant but unable to leave a msg. Needs TBD at this time. CM to follow. Date Signed: 07/30/2017 04:38 PM Electronically Signed By:DECLAN Hsieh
--- NOTE | 2017-07-30 17:59 | HOSPPROG ---
Hospitalist Progress Note Assessment/Plan: 87 yo F with recent hospitalization pw recurrent c diff # recurrent c diff: s/p flagyl and then vanco. Not currently having much in the way of diarrhea. Query if this could be colonization. Will provide flagyl and vanco for now and request ID consult in am. # Falls: recurrent falls prior to admission, likely needs snf, pt/ot/cm involved # electrolyte abnormalities: repleting, again per patient not much diarrhea any longer so hopefully this will normalize # abraham: will start noc cpap # limited CPR # chronic medical issues: a fib (on chronic AC), hx of embolic cva, PMR Objective: Vital Signs Temp Pulse Resp BP Pulse Ox 36.8 C 82 22 H 124/85 H 99 07/30/17 15:35 07/30/17 15:35 07/30/17 15:35 07/30/17 15:35 07/30/17 15:35 Microbiology 07/30/17 04:45 Gastrointestinal Tract Panel (PCR) - Final Stool Clostridium Difficile Detected Laboratory Results 07/30/17 06:37 07/29/17 07/30/17 07/31/17 05:59 05:59 05:59 Intake Total 1647 Balance 1647 PT 30.9 SEC (12.0-15.0) H 07/30/17 02:34 INR 2.92 (0.83-1.16) H 07/30/17 02:34 ICD10 Worksheet Patient Problems: Problems Problem Status Onset C. difficile diarrhea Acute ~07/30/17 Encephalopathy acute Acute Diarrhea Acute Dehydration Acute Hyponatremia Acute Hypokalemia Acute
[2017-07-30] MEDS ORDERED: WARFARIN SODIUM 3 MG TAB PO SCH (21:00)
[2017-07-30 21:21] LABS: POTASSIUM 3.5 mEq/L (3.5-5.2)
[2017-07-31] MEDS: VANCOMYCIN 125 MG/2.5 ML UDL PO SCH ×4 (05:54→20:12)
[2017-07-31 08:45] LABS: MAGNESIUM 1.7 mg/dL (1.6-2.3); POTASSIUM 3.6 mEq/L (3.5-5.2)
[2017-07-31] MEDS: DIGOXIN 125 MCG TAB PO SCH (08:54)
[2017-07-31] MEDS: FUROSEMIDE 20 MG TAB PO SCH ×2 (08:55→20:11)
[2017-07-31] MEDS: VENLAFAXINE XR 75 MG CAP PO SCH (08:55)
[2017-07-31] MEDS: CHOLECALCIFEROL VIT D3 1,000 UNITS TAB PO SCH (08:55)
[2017-07-31] MEDS ORDERED: FLU VACC QS 2017-18 (3YR+)/PF 0.5 ML SYR (FLUARIX QUAD) IM ONE (09:04)
[2017-07-31] MEDS ORDERED: POTASSIUM CL 10 MEQ TAB PO ONE (09:09)
[2017-07-31] MEDS ORDERED: MAGNESIUM SULF 1 GM/DEXTROSE 100 ML IV ONE (10:59)
[2017-07-31] MEDS: NS W/ 20 KCl/L 1,000 ML IV SCH ×2 (11:15→23:57)
[2017-07-31] MEDS: Diltiazem Hcl [Cartia Xt 180mg] 180 MG PO SCH (11:29)
[2017-07-31] MEDS: DILTIAZEM CD 180 MG CAP PO SCH ×2 (12:33→20:11)
--- NOTE | 2017-07-31 15:34 | ASMTCMCOM ---
CM Note CM Note Notes: CM spoke w/ Valencia RN. PT/OT are recommending SNF. Pts friend, who is MDPOA would like pt to go to SNF. Pt is agreeable to going to SNF. Pt has been to [facility] in the past and would like a referral to be made there. CM made a referral to [facility] and awaiting to hear back. CM to follow. Date Signed: 07/31/2017 03:33 PM Electronically Signed By:DECLAN Hsieh
--- NOTE | 2017-07-31 17:15 | HOSPPROG ---
Hospitalist Progress Note Assessment/Plan: 87 yo F with recent hospitalization pw recurrent c diff # recurrent c diff: s/p flagyl and then vanco. Not currently having much in the way of diarrhea--1 large BM today. Query if this could be colonization and her sxs represent another process. Reviewed with ID who are following. Reviewed abd CT notable for focal area of inflammation with associated diverticulosis, not c/ w diverticulitis, no galvan colitis c/w c diff either. # recent strep endocarditis: treated with 6 weeks of ctx, had a large vegetation at the time, repeat echo ordered, will continue to follow cxs. # Falls: recurrent falls prior to admission, will need snf, pt/ot/cm involved # electrolyte abnormalities: repleting, again per patient not much diarrhea any longer so hopefully this will normalize # abraham: will start noc cpap # limited CPR # chronic medical issues: a fib (on chronic AC), hx of embolic cva, PMR-- unclear if this was a true dx per patient Dispo: IP status, will need > 48 hours stay for eval/mgmt of above Care plan reviewed with ID including plans for repeat echo. Subjective: no significant overnight events, patient notes feeling a bit better today but still quite fatigued Objective: Vital Signs Temp Pulse Resp BP Pulse Ox 36.9 C 84 18 132/79 H 94 07/31/17 15:24 07/31/17 15:24 07/31/17 15:24 07/31/17 15:24 07/31/17 15:24 Laboratory Results 07/31/17 08:01 07/30/17 07/31/17 08/01/17 05:59 05:59 05:59 Intake Total 1897 1000 Output Total 1 Balance 1896 1000 PT 30.9 SEC (12.0-15.0) H 07/30/17 02:34 INR 2.92 (0.83-1.16) H 07/30/17 02:34 awake alert nad anicteric op clear rrr no mrg cta b soft nt nd no cce warm dry well perfused oriented appropriate ICD10 Worksheet Patient Problems: Problems Problem Status Onset C. difficile diarrhea Acute ~07/30/17 Dehydration Acute Diarrhea Acute Hypokalemia Acute Hyponatremia Acute Encephalopathy acute Acute
--- NOTE | 2017-07-31 17:23 | PCMIDPN ---
Assessment/Plan: Assessment: Diarrhea with a positive C diff PCR. After review of the CT scan as well as the patient's symptoms I suspect that the patient has a colonization with a low amount of C difficile. Her symptoms and the CT scan do not show significant colitis. Discussed case with hospitalist. Would favor approaching this patient from a focal sigmoid diverticulitis rather than a galvan colitis direction. Patient is currently on IV metronidazole and oral vancomycin. Plan: 1. Consider discontinuing metronidazole and vancomycin. Metronidazole itself may be continued for focal treatment of likely diverticulitis. Consider use of Levaquin or ceftriaxone for diverticulitis coverage. Given this and the colonization with toxin producing C difficile colitis it is reasonable to continue oral vancomycin at twice daily dosing to suppress potential clostridial growth. 07/31/17 18:21 07/31/17 18:25 Subjective: Patient is remarkably nontoxic. She relates having 1 bowel movement today. She had 2 yesterday. They were not liquid. She has occasional cramping pain in her abdomen. No significant fevers or chills. Objective: IV metronidazole. Oral vancomycin Vital Signs Temp Pulse Resp BP Pulse Ox 36.9 C 84 18 132/79 H 94 07/31/17 15:24 07/31/17 15:24 07/31/17 15:24 07/31/17 15:24 07/31/17 15:24 Laboratory Results 07/31/17 08:01 07/30/17 07/31/17 08/01/17 05:59 05:59 05:59 Intake Total 1897 1000 Output Total 1 Balance 1896 1000 - Physical Exam General Appearance: WD/WN, alert, no apparent distress, non-toxic Respiratory: lungs clear, normal breath sounds, No respiratory distress Cardiac/Chest: regular rate, rhythm, No tachycardia Abdomen: non-tender, soft, No mass Skin: normal color, warm/dry, No rash Neuro/Psych: alert, normal mood/affect, oriented x 3 ICD10 Worksheet Patient Problems: Problems Problem Status Onset C. difficile diarrhea Acute ~07/30/17 Dehydration Acute Diarrhea Acute Hypokalemia Acute Hyponatremia Acute Encephalopathy acute Acute
[2017-07-31 18:27] LABS: POTASSIUM 3.5 mEq/L (3.5-5.2)
[2017-07-31] MEDS ORDERED: WARFARIN SODIUM 4 MG TAB PO SCH (21:00)
[2017-08-01] MEDS ORDERED: POTASSIUM CL 20 MEQ TAB PO ONE (01:19)
[2017-08-01 05:37] LABS: % IMMATURE GRANULYOCYTES 0.7 % (0.0-1.1); ABSOLUTE IMMATURE GRANULOCYTES 0.06 10^3/uL (0.00-0.10); ADD DIFF? NO; ADD MORPH? NO; ADD SCAN? NO; ATYPICAL LYMPHOCYTE FLAG 0 (0-99); FRAGMENT RBC FLAG 20 (0-99); HEMATOCRIT 30.5 % (38.0-47.0); HEMOGLOBIN 9.8 g/dL (12.6-16.3); LEFT SHIFT FLG 10 (0-99); LIPEMIA HEMOLYSIS FLAG 80 (0-99); MEAN CELL HEMOGLOBIN 26.4 pg (27.9-34.1); MEAN CELL HEMOGLOBIN CONCENTR. 32.1 g/dL (32.4-36.7); MEAN CELL VOLUME 82.2 fL (81.5-99.8); MEAN PLATELET VOLUME 12.2 fL (8.7-11.7); PLATELET CLUMPS FLAG 0 (0-99); PLATELET COUNT 232 10^3/uL (150-400); RED BLOOD CELL COUNT 3.71 10^6/uL (4.18-5.33); RED CELL DISTRIBUTION WIDTH 17.2 % (11.5-15.2)
[2017-08-01] MEDS: VANCOMYCIN 125 MG/2.5 ML UDL PO SCH ×3 (05:42→21:38)
[2017-08-01 05:48] LABS: INR 2.98 (0.83-1.16); PROTIME(PATIENT) 31.4 SEC (12.0-15.0)
[2017-08-01 05:49] LABS: ANION GAP 8 mEq/L (8-16); CALCIUM 9.2 mg/dL (8.5-10.4); CARBON DIOXIDE 24 mEq/l (22-31); CHLORIDE 103 mEq/L (97-110); CREATININE 0.6 mg/dL (0.6-1.0); GLOMERULAR FILTRATION RATE > 60; GLUCOSE 112 mg/dL (70-100); MAGNESIUM 1.7 mg/dL (1.6-2.3); POTASSIUM 4.1 mEq/L (3.5-5.2); SODIUM 135 mEq/L (134-144)
[2017-08-01] MEDS ORDERED: CIPROFLOXACIN 500 MG TAB PO SCH (10:00)
[2017-08-01] MEDS: DILTIAZEM CD 180 MG CAP PO SCH ×2 (10:16→21:38)
[2017-08-01] MEDS: VENLAFAXINE XR 75 MG CAP PO SCH (10:17)
[2017-08-01] MEDS: CHOLECALCIFEROL VIT D3 1,000 UNITS TAB PO SCH (10:17)
[2017-08-01] MEDS: FUROSEMIDE 20 MG TAB PO SCH ×2 (10:17→21:38)
[2017-08-01] MEDS: DIGOXIN 125 MCG TAB PO SCH (10:17)
[2017-08-01] MEDS ORDERED: MAGNESIUM SULF 1 GM/DEXTROSE 100 ML IV ONE (11:10)
[2017-08-01] MEDS: NS W/ 20 KCl/L 1,000 ML IV SCH ×2 (11:29→23:11)
--- NOTE | 2017-08-01 12:56 | HOSPPROG ---
Hospitalist Progress Note Assessment/Plan: 87 yo F with recent hospitalization pw diarrhea/generalized weakness x 3 months in setting of recent c diff. # diarrhea: unclear how much of this was diarrhea versus incontinence as here she has had very little in way of BMs. C diff testing positive again, but suspect this may be residual from prior rather than true disease. Does have focal area of inflammation on ct but not c/w diverticulitis or c diff. Have been treating with flagyl/vanco with no real change, asked for ID input who suspects this is unlikely c diff as well. At this point, will monitor off of abx. Will continue low dose ppx oral vanco for now given recurrent abx exposure. Start fiber. # generalized weakness: without any real focal findings and has been more of a subacute decline. She did appear to be volume depleted on admission possibly contributing. Echo pending to eval for possible residual endocarditis, culture negative. Will also check b12, tsh, cortisol levels. Will check esr/crp as well given prior hx of ? PMR. Given time frame of occurring over several months, could be simply due to advanced age and failure to thrive. Will need to dc to snf. # falls: multiple falls in months preceding admission as above, ? 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 dx per patient Dispo: IP status, will need > 48 hours stay for eval/mgmt of above Subjective: no significant overnight events, only 1 bm yesterday and none so far this am, still feels very weak, no abdominal pain, no n/v Objective: Vital Signs Temp Pulse Resp BP Pulse Ox 36.8 C 75 17 91/66 L 91 L 08/01/17 11:55 08/01/17 11:55 08/01/17 11:55 08/01/17 11:55 08/01/17 11:55 Laboratory Results 08/01/17 05:19 08/01/17 05:19 07/31/17 08/01/17 08/02/17 05:59 05:59 05:59 Intake Total 1897 1200 550 Output Total 1 1 Balance 1896 1199 550 PT 31.4 SEC (12.0-15.0) H 08/01/17 05:19 INR 2.98 (0.83-1.16) H 08/01/17 05:19 awake alert nad anicteric op clear rrr distant cta b soft nt nd +bs no cce warm dry well perfused oriented appropriate - Time Spent With Patient Time Spent with Patient: greater than 35 minutes Time Spent with Patient: Greater than 35 minutes spent on this patients care, greater than 50% of time spent counseling, educating, and coordinating care regarding the above mentioned plan. ICD10 Worksheet Patient Problems: Problems Problem Status Onset C. difficile diarrhea Acute ~07/30/17 Encephalopathy acute Acute Diarrhea Acute Dehydration Acute Hyponatremia Acute Hypokalemia Acute
[2017-08-01] MEDS ORDERED: metroNIDAZOLE 500 MG TAB PO SCH (14:00)
[2017-08-01] MEDS ORDERED: WARFARIN SODIUM 2 MG TAB PO ONE (16:00)
--- NOTE | 2017-08-01 17:33 | PCMIDPN ---
Assessment/Plan: Assessment: Diarrhea with a positive C diff PCR. After review of the CT scan as well as the patient's symptoms I suspect that the patient has a colonization with a low amount of C difficile. Her symptoms and the CT scan do not show significant colitis. Discussed case with hospitalist. Would favor approaching this patient from a focal sigmoid diverticulitis rather than a galvan colitis direction. Patient has currently been reduced to twice daily oral vancomycin. Plan: 1. Watch patient off all treatment dose with antibiotics. Subjective: Patient is sitting in her hospital chair. She is in good spirits. Denies any new complaints. 1 soft stool yesterday. Objective: Oral vancomycin twice daily. Vital Signs Temp Pulse Resp BP Pulse Ox 36.6 C 72 21 H 129/67 H 92 08/01/17 16:00 08/01/17 16:00 08/01/17 16:00 08/01/17 16:00 08/01/17 16:00 Laboratory Results 08/01/17 05:19 08/01/17 05:19 07/31/17 08/01/17 08/02/17 05:59 05:59 05:59 Intake Total 1897 1200 550 Output Total 1 1 Balance 1896 1199 550 - Physical Exam General Appearance: WD/WN, alert, no apparent distress, non-toxic Respiratory: lungs clear, normal breath sounds, No respiratory distress Cardiac/Chest: regular rate, rhythm, No tachycardia Abdomen: non-tender, soft Skin: normal color, warm/dry, No rash Neuro/Psych: alert, normal mood/affect, oriented x 3 ICD10 Worksheet Patient Problems: Problems Problem Status Onset C. difficile diarrhea Acute ~07/30/17 Dehydration Acute Diarrhea Acute Hypokalemia Acute Hyponatremia Acute Encephalopathy acute Acute
--- NOTE | 2017-08-01 18:21 | ECHO ---
[email or web address] [address] [address] Main: [phone] Fax: Transthoracic Echocardiogram Name: HESHAM SANDOVAL MR#: [id number] Study Date: 08/01/2017 Study Time: 01:49 PM Date of : 1930 Age: 87 year(s) Height: 160 cm (63 in.) Weight: 86.64 kg (191 lb.) BSA: 1.9 m2 Gender: Female Examination: Echo Indication: Image Quality: Technically Difficult Contrast: Requested by: Asha Grimm BP: 91 mmHg/66 mmHg Heart Rate: Rhythm: Atrial fibrillation Indication: Procedure Staff Logger: Elizabeth Fernández Reading Physician: Geoff Allan Requesting Provider: Conclusions: Concentric left ventricular hypertrophy with preserved systolic function ejection fraction of 70%. Moderate to severe calcification of the mitral valve annulus with mild mitral stenosis and moderate mitral regurgitation. Mitral valve abnormalities associated with left atrial enlargement. moderate tricuspid regurgitation with normal estimated right ventricular systolic pressure. Aortic valve sclerosis with mild aortic stenosis. Endocarditis cannot be excluded no surgical indications are identified by today's study. Measurements: Chambers Valvular Assessment AV/MV Valvular Assessment TV/PV Normal Normal Normal Name Value Range Name Value Range Name Value Range Ao Krista (MM): 3.1 cm (2.2 cm-3.7 AV meanP mmHg ( - ) TR Vmax: 2.66 mm/s ( - ) cm) LVOT Vmax: 1.17 m/s (0.7 m/s-1.1 TR PGmax: 28 mmHg ( - ) IVSd (2D): 1.1 cm (0.6 cm-1.1 m/s) syst. PAP: 43 mmHg ( - ) cm) BERNARDINO (VTI): 1.9 cm ( - ) PV Vmax: 1.07 m/s (0.6 m/s-0.9 LVDd (2D): 3.8 cm (3.9 cm-5.3 AR (PHT): 387 ms ( - ) m/s) cm) MV meanP mmHg ( - ) PV PGmax: 5 mmHg ( - ) LVDs (2D): 2.5 cm (2.1 cm-4 MV PHT: 0.075 s ( - ) cm) MVA (Vmax): 1.6 m/s ( - ) LVPWd (2D): 1.0 cm ( - ) MVA (PHT): 2.9 s ( - ) LVOTd 2.0 cm 2.0 cm mm LVEF (BP): 70 % (>=55 %) RVDd(2D): 2.8 cm (1.9 cm-3.8 cmmm) Continued Measurements: Chambers Valvular Assessment AV/MV Valvular Assessment TV/PV Name Value Name Value Name Value LADs Lon.2 cm MV VTI: 51.30 cm CVP (est.): 15 mmHg Patient: HESHAM SANDOVAL Study Date: 08/01/2017 Page 1 of 2 01:49 PM LA Area: 27.9 cm2 AR Vmax: 3.98 cm/s LA Volume: 85 ml LA Volume Index: 44.7 ml/m2 Additional Vessels Name Value Ao Ascendin.0 cm Findings: Left Ventricle: Normal size left ventricle. Borderline concentric LV hypertrophy. Normal global systolic LV function. EF is 70 %. No regional wall motion abnormality. Unable to assess diastolic dysfunction. Right Ventricle: Normal size right ventricle. Normal RV function. Left Atrium: The left atrium is mildly dilated. Cannot rule out left atrial thrombus. Right Atrium: The right atrium is borderline dilated. Mitral Valve: There is moderate thickening of the mitral valve leaflets. Mean mitral valve gradient 6mmHg.Mild mitral valve stenosis is present. Moderate mitral valve regurgitation is present. There is Moderate to severe posterior annulus calcification. There is Moderate to severe anterior annulus calcification. Cannot rule out mitral valve vegetation. Cannot rule out vegetation due to annular calcification. . Aortic Valve: The aortic valve is tri-leaflet. Moderate aortic cusp calcification is present. Mild aortic valve regurgitation is present. Mild calcific aortic valve stenosis. Cannot rule out aortic valve vegetation. Tricuspid Valve: The tricuspid valve is normal in appearance and function. Moderate tricuspid regurgitation is present. No tricuspid valve vegetation. Pulmonic Valve: Pulmonary valve not well visualized. Aorta: Normal size aortic root measuring 3.1 cm. Normal size ascending aorta measuring 3.0 cm. Pericardium: No pericardial effusion. (No Signature Object) Patient: HESHAM SANDOVAL Study Date: 08/01/2017 Page 2 of 2 01:49 PM [id number]
[2017-08-01 19:53] LABS: POTASSIUM 4.9 mEq/L (3.5-5.2)
[2017-08-02 05:22] LABS: INR 3.19 (0.83-1.16); PROTIME(PATIENT) 33.1 SEC (12.0-15.0)
[2017-08-02 05:25] LABS: % IMMATURE GRANULYOCYTES 1.1 % (0.0-1.1); ADD DIFF? NO; ADD MORPH? NO; ADD SCAN? NO; ATYPICAL LYMPHOCYTE FLAG 0 (0-99); FRAGMENT RBC FLAG 20 (0-99); HEMATOCRIT 30.8 % (38.0-47.0); HEMOGLOBIN 10.1 g/dL (12.6-16.3); LEFT SHIFT FLG 10 (0-99); LIPEMIA HEMOLYSIS FLAG 80 (0-99); MEAN CELL HEMOGLOBIN 27.4 pg (27.9-34.1); MEAN CELL HEMOGLOBIN CONCENTR. 32.8 g/dL (32.4-36.7); MEAN CELL VOLUME 83.5 fL (81.5-99.8); MEAN PLATELET VOLUME 12.9 fL (8.7-11.7); PLATELET CLUMPS FLAG 10 (0-99); PLATELET COUNT 246 10^3/uL (150-400); RED BLOOD CELL COUNT 3.69 10^6/uL (4.18-5.33); RED CELL DISTRIBUTION WIDTH 17.3 % (11.5-15.2)
[2017-08-02 05:34] LABS: ANION GAP 9 mEq/L (8-16); C-REACTIVE PROTEIN 49.6 mg/L (<10.0); CALCIUM 9.5 mg/dL (8.5-10.4); CARBON DIOXIDE 21 mEq/l (22-31); CHLORIDE 105 mEq/L (97-110); CREATININE 0.7 mg/dL (0.6-1.0); GLOMERULAR FILTRATION RATE > 60; GLUCOSE 108 mg/dL (70-100); MAGNESIUM 1.8 mg/dL (1.6-2.3); POTASSIUM 4.1 mEq/L (3.5-5.2); SODIUM 135 mEq/L (134-144)
[2017-08-02 06:02] LABS: CORTISOL-AM 3.5 ug/dL (4.5-22.7)
[2017-08-02 06:20] LABS: SEDIMENTATION RATE 68 MM/HR (0-30)
[2017-08-02] MEDS: NS W/ 20 KCl/L 1,000 ML IV SCH (09:03)
[2017-08-02] MEDS: VANCOMYCIN 125 MG/2.5 ML UDL PO SCH ×2 (09:04→20:12)
[2017-08-02] MEDS: DILTIAZEM CD 180 MG CAP PO SCH ×2 (09:37→20:12)
[2017-08-02] MEDS: CHOLECALCIFEROL VIT D3 1,000 UNITS TAB PO SCH (09:37)
[2017-08-02] MEDS: FUROSEMIDE 20 MG TAB PO SCH ×2 (09:37→20:13)
[2017-08-02] MEDS: DIGOXIN 125 MCG TAB PO SCH (09:37)
[2017-08-02] MEDS: VENLAFAXINE XR 75 MG CAP PO SCH (09:38)
[2017-08-02] MEDS ORDERED: MAGNESIUM SULF 1 GM/DEXTROSE 100 ML IV ONE (09:55)
--- NOTE | 2017-08-02 15:01 | HOSPPROG ---
Hospitalist Progress Note Assessment/Plan: 87 yo F with recent hospitalization pw diarrhea/generalized weakness x 3 months in setting of recent c diff. # diarrhea: has resolved, for the most part began prior to admission with one large loose stool since admit. C diff positive but CT not c/w c diff and given rapid resolution of sxs felt to be very unlikely c diff. CT findings not c/w diverticulitis and without abdominal pain will hold off on treating this as diverticulitis. Query a viral gastroenteritis present prior to admission that has resolved. # generalized weakness: without any real focal findings and has been more of a subacute decline. She did appear to be volume depleted on admission possibly contributing. Echo showing normal EF, calcified valves without clear vegetation but unable to rule out, culture negative. Slightly low am cortisol level, will f /u with cortisol stimulation test. Does have elevated esr/crp and hx of possible PMR--query if that is contributing though she does not complain of pain. # falls: multiple falls in months preceding admission as above, ? failure to thrive picture more than anything else, w/u as above, to snf. Friend who is also patients caregiver present at bedside with many questions about likely future outcomes for her including whether or not she will be able to return to independent living or if she will need more help--recommended that she very likely may need more help in the future and that all options should be explored. Will ask CM to talk with them as well. 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 Repeat echo with calcified valves making it impossible to r/o vegetation. With negative cultures, do not feel strongly need to perform JONATHAN, will defer to ID. 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 per patient Dispo: IP status, will need > 48 hours stay for eval/mgmt of above Subjective: no significant overnight events, patient feeling well today though still fatigued and weak when she is up and walking Objective: Vital Signs Temp Pulse Resp BP Pulse Ox 36.8 C 70 19 144/66 H 92 08/02/17 11:05 08/02/17 11:05 08/02/17 11:05 08/02/17 11:05 08/02/17 11:05 Laboratory Results 08/02/17 05:08 08/02/17 05:08 08/01/17 08/02/17 08/03/17 05:59 05:59 05:59 Intake Total 1200 2855 Output Total 1 Balance 1199 2855 PT 33.1 SEC (12.0-15.0) H 08/02/17 05:08 INR 3.19 (0.83-1.16) H 08/02/17 05:08 awake alert nad anicteric op clear rrr distant cta b soft nt nd +bs no cce warm dry well perfused oriented appropriate - Time Spent With Patient Time Spent with Patient: greater than 35 minutes Time Spent with Patient: Greater than 35 minutes spent on this patients care, greater than 50% of time spent counseling, educating, and coordinating care regarding the above mentioned plan. ICD10 Worksheet Patient Problems: Problems Problem Status Onset C. difficile diarrhea Acute ~07/30/17 Dehydration Acute Diarrhea Acute Hypokalemia Acute Hyponatremia Acute Encephalopathy acute Acute
[2017-08-02] MEDS ORDERED: WARFARIN SODIUM 1 MG TAB PO ONE (16:00)
[2017-08-02 18:55] LABS: POTASSIUM 3.7 mEq/L (3.5-5.2)
[2017-08-02] MEDS ORDERED: POTASSIUM CL 10 MEQ TAB PO ONE (19:23)
[2017-08-03] MEDS ORDERED: COSYNTROPIN 0.25 MG/2 ML SYRINGE IVP ONE (06:00)
[2017-08-03 06:17] LABS: ANION GAP 9 mEq/L (8-16); CALCIUM 9.5 mg/dL (8.5-10.4); CARBON DIOXIDE 23 mEq/l (22-31); CHLORIDE 104 mEq/L (97-110); CREATININE 0.6 mg/dL (0.6-1.0); GLOMERULAR FILTRATION RATE > 60; GLUCOSE 109 mg/dL (70-100); MAGNESIUM 1.7 mg/dL (1.6-2.3); POTASSIUM 3.6 mEq/L (3.5-5.2); SODIUM 136 mEq/L (134-144)
[2017-08-03 06:22] LABS: INR 3.14 (0.83-1.16); PROTIME(PATIENT) 32.7 SEC (12.0-15.0)
[2017-08-03] MEDS: FUROSEMIDE 20 MG TAB PO SCH ×2 (09:35→20:25)
[2017-08-03] MEDS: VENLAFAXINE XR 75 MG CAP PO SCH (09:36)
[2017-08-03] MEDS: CHOLECALCIFEROL VIT D3 1,000 UNITS TAB PO SCH (09:36)
[2017-08-03] MEDS: DIGOXIN 125 MCG TAB PO SCH (09:36)
[2017-08-03] MEDS: VANCOMYCIN 125 MG/2.5 ML UDL PO SCH ×2 (09:36→20:25)
[2017-08-03] MEDS ORDERED: POTASSIUM CL 10 MEQ TAB PO ONE (09:45)
[2017-08-03] MEDS: DILTIAZEM CD 180 MG CAP PO SCH ×2 (09:59→20:25)
--- NOTE | 2017-08-03 11:55 | HOSPPROG ---
Hospitalist Progress Note Assessment/Plan: 87 yo F with recent hospitalization pw diarrhea/generalized weakness x 3 months in setting of recent c diff. # diarrhea: has resolved, for the most part began prior to admission with one large loose stool since admit. C diff positive but CT not c/w c diff and given rapid resolution of sxs felt to be very unlikely c diff. CT findings not c/w diverticulitis and without abdominal pain will hold off on treating this as diverticulitis. Query a viral gastroenteritis present prior to admission that has resolved. # generalized weakness: without any real focal findings and has been more of a subacute decline. She did appear to be volume depleted on admission possibly contributing. Echo showing normal EF, calcified valves without clear vegetation but unable to rule out, culture negative. Slightly low am cortisol level, will f /u with cortisol stimulation test--ordered this am but labs drawn inappropriately-if she stims anyway (more than 1 hour past cosyntropin dose), will not repeat, if she does not stim will repeat in am. Does have elevated esr/ crp and hx of possible PMR--query if that is contributing though she does not complain of pain. # falls: multiple falls in months preceding admission as above, ? failure to thrive picture more than anything else, w/u as above, to snf. 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 Repeat echo with calcified valves making it impossible to r/o vegetation. With negative cultures, do not feel strongly need to perform JONATHAN, will defer to ID. # hyponatremia: resolved, again likely related to volume depletion # electrolyte abnormalities: repleting, in setting of recent diarrhea as well as poor po intake, doing well off of IV repletion currently # abraham: continue noc cpap # limited CPR # chronic medical issues: a fib (on chronic AC), hx of embolic cva, PMR-- patient previously seen by rheum who told her this was not certain dx, has elevated inflamm markers here but no real pain. Would have her f/u with rheum. Dispo: IP status, will need > 48 hours stay for eval/mgmt of above Subjective: no significant overnight events, patient is feeling about the same, no recurent diarrhea, no abdominal pain Objective: Vital Signs Temp Pulse Resp BP Pulse Ox 36.3 C 74 16 127/48 H 98 08/03/17 07:52 08/03/17 07:52 08/03/17 07:52 08/03/17 07:52 08/03/17 07:52 Laboratory Results 08/02/17 05:08 08/03/17 05:42 08/02/17 08/03/17 08/04/17 05:59 05:59 05:59 Intake Total 2855 1200 Balance 2855 1200 PT 32.7 SEC (12.0-15.0) H 08/03/17 05:42 INR 3.14 (0.83-1.16) H 08/03/17 05:42 awake alert nad anicteric op clear rrr distant cta b soft nt nd +bs no cce warm dry well perfused oriented appropriate ICD10 Worksheet Patient Problems: Problems Problem Status Onset C. difficile diarrhea Acute ~07/30/17 Dehydration Acute Diarrhea Acute Hypokalemia Acute Hyponatremia Acute Encephalopathy acute Acute
--- NOTE | 2017-08-03 12:04 | ASMTCMCOM ---
CM Note CM Note Notes: Pt will dc to [facility], per Chepe at they do not have a [facility] bed available yet, so unable to take pt today. notified, CARMEN to check Saturday. Date Signed: 08/03/2017 12:03 PM Electronically Signed By:Sheri York RN
[2017-08-03 18:29] LABS: POTASSIUM 3.5 mEq/L (3.5-5.2)
[2017-08-03] MEDS ORDERED: POTASSIUM CL 20 MEQ TAB PO ONE (22:07)
[2017-08-04 05:29] LABS: INR 3.05 (0.83-1.16)
[2017-08-04 05:31] LABS: MAGNESIUM 1.6 mg/dL (1.6-2.3); POTASSIUM 3.4 mEq/L (3.5-5.2)
[2017-08-04 07:34] VITALS: RESP 16; TEMP 98.4
[2017-08-04] MEDS ORDERED: POTASSIUM CL 10 MEQ TAB PO ONE (08:15)
[2017-08-04] MEDS: VENLAFAXINE XR 75 MG CAP PO SCH (08:28)
[2017-08-04] MEDS: DILTIAZEM CD 180 MG CAP PO SCH (08:28)
[2017-08-04] MEDS: FUROSEMIDE 20 MG TAB PO SCH (08:28)
[2017-08-04] MEDS: DIGOXIN 125 MCG TAB PO SCH (08:28)
[2017-08-04] MEDS: CHOLECALCIFEROL VIT D3 1,000 UNITS TAB PO SCH (08:29)
[2017-08-04] MEDS: VANCOMYCIN 125 MG/2.5 ML UDL PO SCH (08:29)
[2017-08-04 12:01] VITALS: O2SAT 95
[2017-08-04] MEDS ORDERED: FUROSEMIDE 40 MG TAB PO ONE ×2 (12:39→13:30)
--- NOTE | 2017-08-04 13:12 | PDIAF ---
- Diagnosis Diagnosis: diarrhea, weakness and deconditioning - Medication Management Discharge Medications: Medications to Continue on Transfer Cholecalciferol Vit D3 [Vitamin D3 (*)] 1,000 units PO DAILY 07/30/17 [Last Taken 07/29/17] Digoxin [Lanoxin 125 mcg (RX)] 125 mcg PO DAILY 07/30/17 [Last Taken 07/29/17] Diltiazem HCl [Cartia XT 180mg] 180 mg PO BID 07/30/17 [Last Taken 07/29/17 09: 00] Furosemide [Lasix 20 MG (*)] 20 mg PO BID 07/30/17 [Last Taken 07/29/17 09:00] Herbals/Supplements -Info Only 1 ea PO DAILY 07/30/17 [Last Taken Unknown] Potassium Cl [Klor-Con 10 meq (RX)] 10 meq PO DAILY18 07/30/17 [Last Taken 07/28] Venlafaxine Xr [Effexor Xr 75MG (*)] 150 mg PO DAILY 07/30/17 [Last Taken ] Warfarin Sodium [Coumadin 3MG (*)] 3 mg PO SUTUTH@21 07/30/17 [Last Taken ] Warfarin Sodium [Coumadin 4MG (*)] 4 mg PO MOWEFRSA@21 07/30/17 [Last Taken 05/06] Vancomycin [Vancocin Oral Liquid] 125 mg PO BID #28 udl 08/04/17 [Last Taken Unknown] Discharge Medications: Refer to the Discharge Home Medication list for PRN reason. - Orders Services needed: Physical Therapy, Occupational Therapy Diet Recommendation: no restrictions on diet Diet Texture: Regular Texture Diet - Follow Up Care Current Providers and Referrals: Patient,NotPresent [Unknown] - As per Instructions
--- NOTE | 2017-08-04 13:18 | PDDCSUM ---
Discharge Summary Discharge Summary: 87 yo F with recent hospitalization pw diarrhea/generalized weakness x 3 months in setting of recent c diff. She no longer has diarrhea. She is on proph dosing with PO Vancomycin. On the day of discharge she has some lower extremity edema and she received an additional dose of Lasix. As her acute issues have resolved, she will be discharged to [facility] DDX: # diarrhea: has resolved, for the most part began prior to admission with one large loose stool since admit. C diff positive but CT not c/w c diff and given rapid resolution of sxs felt to be very unlikely c diff. CT findings not c/w diverticulitis and without abdominal pain will hold off on treating this as diverticulitis. Query a viral gastroenteritis present prior to admission that has resolved. # generalized weakness: without any real focal findings and has been more of a subacute decline. She did appear to be volume depleted on admission possibly contributing. Echo showing normal EF, calcified valves without clear vegetation but unable to rule out, culture negative. Slightly low am cortisol level, will f /u with cortisol stimulation test--ordered this am but labs drawn inappropriately-if she stims anyway (more than 1 hour past cosyntropin dose), will not repeat, if she does not stim will repeat in am. Does have elevated esr/ crp and hx of possible PMR--query if that is contributing though she does not complain of pain. # falls: multiple falls in months preceding admission as above, ? failure to thrive picture more than anything else, w/u as above, to snf. 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 Repeat echo with calcified valves making it impossible to r/o vegetation. With negative cultures, do not feel strongly need to perform JONATHAN # hyponatremia: resolved, again likely related to volume depletion # electrolyte abnormalities: repleting, in setting of recent diarrhea as well as poor po intake, doing well off of IV repletion currently # abraham: continue noc cpap Exam: NAD AAOX3 RRR CTA B S/NT/ND DISCHARGE MEDS: SEE MED REC TOTAL TIME SPENT ON DISCHARGE IS 35 MINUTES
--- NOTE | 2017-08-04 13:38 | ASMTCMCOM ---
CM Note CM Note Notes: CM spoke w/ Zoe at [facility] and was informed that there is a bed available. Pt is being discharged to [facility] today. Transport set up through [facility] via wheelchair. instrumentation supervisor is for 2PM. D/C orders sent to [facility]. CM provided RN w/ phone number to [facility] to give report. CM available for changes. Date Signed: 08/04/2017 01:38 PM Electronically Signed By:DECLAN Hsieh
[2017-08-04 13:51] VITALS: BP 137/49; PULSE 74
--- NOTE | 2017-08-04 16:58 | ASDISCHSUM ---
Discharge Information Plan Status:SNF Medically Cleared to Leave:08/04/2017 Discharge Date:08/04/2017 01:58 PM CM D/C Disposition: ADT D/C Disposition:Longterm Facility Projected Discharge Date:08/04/2017 12:00 AM Transportation at D/C: Discharge Delay Reason: Follow-Up Date:08/04/2017 12:00 AM Discharge Slot: Final Diagnosis: Placement Information Referral Type:*[facility]cf/SNF Referral ID:[id number] Provider Name:Cecille Tan Address 1:[address] Phone Number: Address 2: Fax Number: City:[place] Selection Factors: State:[place] Patient Contact Information Contact Name:ARTEMIO Relationship:Friend Address: Home Phone: City: [facility] Phone: [facility] Code: Email: Financial Information Financial Class:Medicare Advantage Plans Primary Plan Desc:[employer] ADV IP Primary Plan Number:[id number] Secondary Plan Desc: Secondary Plan Number: Assessment Information [facility] Initial CM Assessment Living Arrangements What is your living Answers: Alone arrangement? Who do you live with? Type Of Residence What kind of residence do Answers: House you live in? Discharge Plan Comments Coordination Status Comments Notes: Chart reviewed and spoke w/ STEVE Newberry. Pt is a 87 y/o female admitted w/ diarrhea and weakness after a fall. CM spoke w/ her friend, Neha Saleem [facility] at length about her hx. She reports that pt does a good job of convincing people that she is okay when she is unable to care for herself. Pt receives a couple hour of non skilled HC. Pt has been feeling more depressed since nov 2016. Pt is currently taking wellbutrin 75mg twice in the AM. Neha reports Nov is when pt had her first fall and she was found almost "out cold". CM awaiting OT/PT recommendations. Neha would like pt to go to a SNF and does not think pt can go home safely. Pt is being followed by Elva Rodríguez# [phone], a upper caser through her PCP's office. CM attempted to call upper caser but unable to leave a msg. Needs TBD at this time. CM to follow. Date Signed: 07/30/2017 04:38 PM Electronically Signed By:DECLAN Hsieh [facility] CM Progress Note CM Note CM Note Notes: CM spoke w/ STEVE [place]. PT/OT are recommending SNF. Pts friend, who is MDPOA would like pt to go to SNF. Pt is agreeable to going to SNF. Pt has been to [facility] in the past and would like a referral to be made there. CM made a referral to [facility] and awaiting to hear back. CM to follow. Date Signed: 07/31/2017 03:33 PM Electronically Signed By:DECLAN Hsieh [facility] CARMEN Progress Note CM Note CM Note Notes: Pt will dc to [facility], per Chepe at they do not have a [facility] bed available yet, so unable to take pt today. notified, CARMEN to check Saturday. Date Signed: 08/03/2017 12:03 PM Electronically Signed By:Sheri York RN [facility] CM Progress Note CM Note CM Note Notes: CM spoke w/ Zoe at [facility] and was informed that there is a bed available. Pt is being discharged to [facility] today. Transport set up through [facility] via wheelchair. supply chain procurement manager is for 2PM. D/C orders sent to [facility]. CM provided RN w/ phone number to [facility] to give report. CM available for changes. Date Signed: 08/04/2017 01:38 PM Electronically Signed By:DECLAN Hsieh Intervention Information Intervention Type:*IM-Signed Date of Service:08/02/2017 11:54 AM Patient Type:Inpatient Staff Member:Rosario Nettles Hours: Discipline: Severity: Comment:
== END 2017-08-04 13:58 | DRG 372 ==
LOC: EDUNIT# → F3E 10:00
PROVIDERS: ADMIT Family Medicine; ATTEND Family Medicine
DX: A04.72 Enterocolitis due to Clostridium difficile, not specified as recurrent (principal); E87.1 Hypo-osmolality and hyponatremia; R29.6 Repeated falls; G47.33 Obstructive sleep apnea (adult) (pediatric); I48.91 Unspecified atrial fibrillation; M35.3 Polymyalgia rheumatica; E86.0 Dehydration; Z79.01 Long term (current) use of anticoagulants; Z86.73 Personal history of transient ischemic attack (TIA), and cerebral infarction without residual deficits; Z23 Encounter for immunization; Z87.891 Personal history of nicotine dependence
CPT/HCPCS: 82607-90; 96365; 97112-GP; 97116-GP; 97161-GP; 97165-GO; 97535-GO; G0008; J0834; J3475; Q9967